=== PATIENT | female | born 1985 | race Caucasian/White ===

== ENCOUNTER 2019-10-02 10:49 | Emergency (ER) | payer MEDICAID, SELFPAY | END 2019-10-02 12:20 | disposition home or self-care (01) | PROVIDERS: Emergency Provider Nurse Practitioner Family; Visit Provider Nurse Practitioner Family | DX: B34.9 Viral infection, unspecified (principal); Z77.22 Contact with and (suspected) exposure to environmental tobacco smoke (acute) (chronic) | CPT/HCPCS: 87804 ×2; 99283 ==

== ENCOUNTER 2019-10-15 03:11 | Emergency (ER) | payer MEDICAID, SELFPAY ==
[2019-10-15 03:14] VITALS: BP 133/81; PULSE 86; RESP 16; TEMP 36.7; O2SAT 99; BMI 38.5
--- NOTE | 2019-10-15 03:32 | ED_ITS ---
Entered by Tameka Oviedo, acting as scribe for Bri Briscoe MD Oct 15, 2019 03:11 HPI - Female Genitourinary General: Chief complaint: Urogenital-Female Stated complaint: POSS YEAST INFECTION Time Seen by Provider: 10/15/19 03:33 Source: patient Mode of arrival: ambulatory Limitations: no limitations History of Present Illness: HPI Narrative: 33 yo f came to the er pov for poss yeast infection. Onset was 3 days ago. Pt states that she has burning, itching and swelling around the vagina. Pt states that she does have a some abd pain. Pt states that she has a lot of pain right now. MD elicited complaint: genital swelling, genital itching and other (burning) Onset (ago): day(s) (3 days ago) Location of symptoms: external genitalia Severity: mild Female Urogenital Radiation: Non-Radiating Quality of pain: burning and other (pain) Consistency: constant Vaginal bleeding: none Exacerbating factors: none Relieving factors: none Associated symptoms: Reports abdominal pain; Deny headache(s) Sexual activity: Yes Patient : No Review of Systems General: Reports: 10 or more systems reviewed and unremarkable except in HPI and below Const: Denies: fever Eyes: Denies: change in vision ENMT: Denies: throat pain Card: Denies: chest pain Resp: Denies: shortness of breath GI: Reports: abdominal pain : Reports: genital itching; Denies: flank pain or painful urination Musc: Denies: neck pain Skin/Breast: Denies: rash Neuro: Denies: headache Psych: Denies: anxiety Endo: Denies: excessive urination Kalyan/Lymph: Denies: easy bruising All/Imm: Denies: hives PFSH ED PFSH: Statuses (acute, chronic, etc) shown below reflect problem list status as previously entered and may not be historically accurate Social History Smoking and tobacco status: former smoker Physical Exam Narrative: EXAM NARRATIVE: General alert and oriented x3 no acute distress alert and appropriate HEENT exam normocephalic atraumatic, OP moist, EOMI Trachea midline Respiratory no distress lungs clear to auscultation bilaterally Cardio exam regular rate and rhythm no murmur GI abdomen soft normal bowel sounds nontender nondistended no rigidity no rebound. 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 Bimanual exam was normal no adnexal tenderness Extremities full range of motion Neuro no deficits GCS 15 Psych within normal limits Course Vital Signs: Vital signs: Vital Signs Temperature 98.1 F 10/15/19 03:14 Pulse Rate 71 10/15/19 03:34 Respiratory Rate 18 10/15/19 03:34 Blood Pressure 122/62 10/15/19 03:34 Pulse Oximetry 98 10/15/19 03:34 MDM - Female MDM Narrative: Medical decision making narrative: 33-year-old female with yeast infection by clinical exam. Went over test results with her today and explained that the gonorrhea and chlamydia will not be back for possibly up to 2 days but we would call her if they are positive so no news is good news. Will treat with Diflucan she is to return to the ER if worse follow-up with her primary care doctor if not improving as expected she is agreeable with the plan. Lab Data: Attestation: I reviewed the patient's lab results. Labs: Lab Results 10/15/19 Range/Units 03:55 Urine Color Yellow (Yellow) Urine Appearance Clear (CLEAR) Urine pH 5 (5-7) Ur Specific Gravit y 1.020 (1.005-1.030) Urine Protein Neg (Negative) Urine Glucose (UA) Norm (Normal) Urine Ketones Negative (Negative) Urine Occult Blood Neg (Negative) Urine Nitrate Negative (Negative) Urine Bilirubin Neg (NEGATIVE) Urine Urobilinogen 1 H (Negative) mg/dL Ur Leukocyte Zeina ase Trace H (Negative) Urine RBC 0-4 H (0-2) /hpf Urine WBC 15-25 H (0-5) /hpf Ur Squamous Epith Cells 25-40 H (0-5) Urine Bacteria 1+ H (NONE) Discharge Plan Discharge Patient Disposition: Home, Self-Care Clinical Impression: Yeast infection Condition: Stable Prescriptions: New Diflucan 150 mg tablet 150 mg PO DAILY 3 Days Qty: 3 RF: 1 Discharge Orders: Discharge Order (Routine); Ordered 10/15/19 Ordered By: Bri Briscoe Referrals: Jerry Gomez MD [Primary Care Provider] - Patient Instructions: Vulvovaginal Candidiasis (ED) Activity Restrictions/Additional Instructions: Return to the ER if worse otherwise call your primary care doctor on Thursday for follow-up appointment. As we discussed if your gonorrhea and/or chlamydia tests are positive the hospital will contact you. Take the Diflucan as directed. Coding Level of Care Code ED Bacon Skin Lifter for Jamel Fwamada The documentation recorded by the Preet cook Stephanie Lyn, accurately refl ects the service I personally performed and the decisions made by me, Bri Briscoe MD Oct 15, 2019 03:11
[2019-10-15 03:34] VITALS: BP 122/62; PULSE 71; RESP 18; O2SAT 98
[2019-10-15 04:56] LABS: Add Urine Microscopic? YES; Bilirubin Urine Neg (NEGATIVE); Blood Urine Neg (Negative); Glucose Urine UA Norm (Normal); Ketones Urine Negative (Negative); Leukocyte Esterase Urine Trace (Negative); Nitrate Urine Negative (Negative); Protein Urine Neg (Negative); Urine Appearance Clear (CLEAR); Urine Color Yellow (Yellow); Urobilinogen Urine 1 mg/dL (Negative); pH Urine 5 (5-7)
[2019-10-15 04:57] LABS: Add Urine Culture? No; Bacteria Urine 1+; RBC Urine 0-4 /hpf (0-2); Squamous Epithelial Cell Urine 25-40 (0-5); WBC Urine 15-25 /hpf (0-5)
[2019-10-15 05:43] VITALS: BP 111/60; PULSE 69; RESP 18; TEMP 36.9; O2SAT 99
== END 2019-10-15 05:45 | disposition home or self-care (01) ==
PROVIDERS: Emergency Provider Emergency Medicine; PCP Family Medicine
DX: B37.9 Candidiasis, unspecified (principal); Z87.891 Personal history of nicotine dependence
CPT/HCPCS: 81003; 87210; 87491; 87591; 87661; 99281; E0352

== ENCOUNTER → 2019-12-05 14:55 | Outpatient (BNVA) | payer MEDICAID, SELFPAY | PROVIDERS: PCP Family Medicine; Visit Provider Nurse Practitioner | DX: R50.9 Fever, unspecified (principal) | CPT/HCPCS: 87804 ==

== ENCOUNTER → 2020-02-02 16:26 | Outpatient (BNVA) | payer MEDICAID, SELFPAY | PROVIDERS: PCP Family Medicine; Visit Provider Nurse Practitioner Family | DX: R05 Cough (principal); J02.9 Acute pharyngitis, unspecified | CPT/HCPCS: 87071; 87400; 87635; 87880 ==

== ENCOUNTER → 2020-02-24 18:48 | Outpatient (BNVA) | payer MEDICAID, SELFPAY | PROVIDERS: PCP Family Medicine; Visit Provider Nurse Practitioner | DX: J01.90 Acute sinusitis, unspecified (principal); J40 Bronchitis, not specified as acute or chronic; R52 Pain, unspecified | CPT/HCPCS: 87400 ==

== ENCOUNTER 2020-03-19 19:00 | Emergency (ER) | payer MEDICAID, SELFPAY ==
[2020-03-19 19:03] VITALS: BP 111/78; PULSE 95; RESP 20; TEMP 36.9; O2SAT 99; BMI 38.0
--- NOTE | 2020-03-19 19:17 | ECG_ITS ---
[facility] ED Test Date: 2020-03-19 Pat Name: Payton Galloway Department: Room: Gender: 1 Ranger Aide: : 1985 Requested By: Anny Horton Order Number: [id number] Caryl MD: Amanda Eid M.D. Measurements Intervals [place] Rate: 83 P: 64 [place]: 185 QRS: 2 QRSD: 97 T: 43 QT: 361 QTc: 424 Interpretive Statements SINUS RHYTHM INCOMPLETE RIGHT BUNDLE BRANCH BLOCK SEPTAL MYOCARDIAL INFARCTION, OF INDETERMINATE AGE Compared to ECG 06/29/2016 00:48:44 Incomplete right bundle-branch block now present Myocardial infarct finding now present Electronically Signed On 03-21-2020 13:51:22 CDT by Amanda Eid M.D. [id number]
--- NOTE | 2020-03-19 19:17 | XR_ITS ---
WS: [id number] XR chest 1V portable [id number] REASON FOR EXAM: CP, SOB FINDINGS: The lung shelley are hypoaerated. Similar findings were noted on 10/04/2019. The heart is not enlarged. The lung shelley show no pneumonia, pleural effusion, pulmonary edema, or mass effect. Hilum and apices are normal. IMPRESSION: Hypoaerated lungs.
[2020-03-19 19:44] LABS: Basophils % 0.3 %; Eosinophils # 0.1 10^3/uL (0.0-0.8); Eosinophils % 1.6 %; Hematocrit 38.7 % (37.0-47.0); Hemoglobin 12.4 g/dL (11.5-15.3); Lymphocytes # 2.4 10^3/uL (0.8-4.8); Lymphocytes % 32.7 %; Mean Corpuscular Hemoglobin 29.2 pg (28.0-34.0); Mean Corpuscular Volume 91.1 fL (81-99); Mean Platelet Volume 11.7 fL (7.4-10.4); Monocytes # 0.4 10^3/uL (0.2-0.9); Monocytes % 4.8 %; Neutrophils # 4.4 10^3/uL (1.8-7.7); Neutrophils % 60.2 %; Nucleated Red Blood Cells % 0 %; Platelet Count 277 10^3/cmm (130-400); Red Blood Count 4.25 10^6/uL (4.1-5.3); Red Cell Distribution Width 14.1 % (12.1-15.1); White Blood Count 7.3 10^3/uL (4.0-10.0)
[2020-03-19 20:01] LABS: Alanine Aminotransferase 20 U/L (0-33); Albumin Level 4.2 g/dL (3.5-5.2); Alkaline Phosphatase 70 IU/L (35-105); Anion Gap 14.6 (5-19); Aspartate Amino Transferase 18 U/L (0-32); Blood Urea Nitrogen 17 mg/dL (6-20); Calcium 9.5 mg/dL (8.5-10.5); Carbon Dioxide 26 mmol/L (22-29); Chloride 101 mmol/L (98-107); Glomerular Filtration Rate 81.2 mL/min (90-130); Glucose 115 mg/dL (65-115); Osmolality Calculated 283 mOsm/kg (285-295); Potassium 3.6 mmol/L (3.5-5.1); Sodium 138 mmol/L (136-145); Total Bilirubin 0.3 mg/dL (0.15-1.2); Total Protein 7.2 g/dL (6.6-8.7)
[2020-03-19 20:03] LABS: Troponin(5th) Baseline 6 ng/L (0-10)
[2020-03-19 20:33] LABS: D Dimer 0.56 ug/mIFEU (0-0.59)
[2020-03-19] MEDS: LORazepam 1 mg Tablet PO (20:42)
[2020-03-19] MEDS: ketorolac 30 mg/mL INJ IM (20:42)
--- NOTE | 2020-03-19 20:46 | ED_ITS ---
HPI - Chest Pain General: Chief Complaint: Chest Pain Stated Complaint: cp, sob Time Seen by Provider: 03/19/20 20:21 Source: patient Mode of arrival: ambulatory Limitations: no limitations History of Present Illness: HPI narrative: 34-year-old female who states she has had left-sided chest pain for the last 9 to 10 months. She states the pain is sharp in nature. She is worse with palpation along with movement of her arm. She denies any injuries. She denies any shortness of breath. She denies any cough. MD complaint: chest pain Associated symptoms: Deny abdominal pain, dyspnea, fever(s), nausea or vomiting Review of Systems Const: Denies: fever(s), chills, body aches or change in appetite Eyes: Denies: blurry vision or eye discomfort ENMT: Denies: throat pain or dental pain Card: Reports: chest pain Resp: Denies: dyspnea GI: Denies: abdominal pain, nausea, vomiting or diarrhea : Denies: dysuria Musc: Denies: neck pain or back pain Skin/Breast: Denies: rash Neuro: Denies: headache(s) Psych: Denies: depression Kalyan/Lymph: Denies: easy bruising All/Imm: Denies: urticaria PFSH ED PFSH: Medical History Anxiety Depression History of seizure Surgical History History of cholecystectomy History of total hysterectomy partial Social History Smoking and tobacco status: former smoker Alcohol intake: current Alcohol intake frequency: holidays/special occasions only Female Reproductive History: Date of last menstrual period: 09/16/19 Physical Exam Const: COMMON NORMALS: no acute distress, patient oriented x3 and healthy appearing HENMT: COMMON NORMALS: normocephalic and atraumatic HEAD & SCALP: normocephalic and atraumatic Eye: COMMON NORMALS: Equal, round and reactive pupils present and EOMs intact bilaterally PUPIL: Yes Equal, round and reactive pupils present Neck/C-Spine: COMMON NORMALS: full ROM and supple Chest: COMMONS NORMALS: normal inspection of the chest OTHER: Point tender to left chest Resp: COMMON NORMALS: normal respiratory effort, No retractions, No use of accessory muscles and clear to auscultation bilaterally AUSCULTATION: clear to auscultation bilaterally Cardio: COMMON NORMALS: regular rate, regular rhythm and No murmurs present (Cardio) RATE: regular rate RHYTHM: regular rhythm GI: COMMON NORMALS: Normal to inspection, nondistended, normoactive bowel sounds present, Soft to palpation, non-tender and no masses PALPATION: Yes Soft to palpation Extremity: COMMON NORMALS: normal to inspection and full ROM Neuro: COMMON NORMALS: patient oriented x3, moves all extremities and no focal motor deficits Psych: COMMON NORMALS: mental status grossly normal, Normal thought process present and cooperative THOUGHT PROCESS: Normal thought process present Skin: COMMON NORMALS: no rashes or lesions noted and no wounds GENERAL SKIN EXAM: no rashes or lesions noted Course Vital Signs: Vital signs: Vital Signs Temperature 98.4 F 03/19/20 19:03 Pulse Rate 95 03/19/20 19:03 Respiratory Rate 20 H 03/19/20 19:03 Blood Pressure 111/78 03/19/20 19:03 Pulse Oximetry 99 03/19/20 19:03 MDM - Chest Pain MDM Narrative: Medical decision making narrative: States he presents with chest pain that is atypical in nature. Patient is point tender on exam and EKG troponin and d-dimer all negative. Patient is stable for discharge and is to follow up with primary care doctor and return if worsening. She has no signs of pulmonary embolism or cardiac cause. Lab Data: Labs: Lab Results 03/19/20 03/19/20 03/19/20 Range/Units 19:37 19:37 19:37 WBC 7.3 (4.0-10.0) 10^3/ uL RBC 4.25 (4.1-5.3) 10^6/u L Hgb 12.4 (11.5-15.3) g/dL Hct 38.7 (37.0-47.0) % MCV 91.1 (81-99) fL MCH 29.2 (28.0-34.0) pg MCHC 32.0 (30.0-36.0) g/dL RDW 14.1 (12.1-15.1) % Plt Count 277 (130-400) 10^3/c mm MPV 11.7 H (7.4-10.4) fL Neut % (Auto) 60.2 % Lymph % (Auto) 32.7 % [place] % (Auto) 4.8 % Eos % (Auto) 1.6 % Baso % (Auto) 0.3 % Neut # (Auto) 4.4 (1.8-7.7) 10^3/u L Lymph # (Auto) 2.4 (0.8-4.8) 10^3/u L [place] # (Auto) 0.4 (0.2-0.9) 10^3/u L Eos # (Auto) 0.1 (0.0-0.8) 10^3/u L Baso # (Auto) 0.0 (0.0-0.1) 10^3/u L Nucleated RBC % (a uto) 0 % Nucleated RBCs # 0.0 /100WBC D-Dimer 0.56 (0-0.59) ug/mIFE U Sodium 138 (136-145) mmol/L Potassium 3.6 (3.5-5.1) mmol/L Chloride 101 (98-107) mmol/L Carbon Dioxide 26 (22-29) mmol/L Anion Gap 14.6 (5-19) BUN 17 (6-20) mg/dL Creatinine 0.8 (0.5-0.9) mg/dL GFR Calculation 81.2 L (90-130) mL/min Glucose 115 (65-115) mg/dL Calculated Osmolal ity 283 L (285-295) mOsm/k g Calcium 9.5 (8.5-10.5) mg/dL Total Bilirubin 0.3 (0.15-1.2) mg/dL AST 18 (0-32) U/L ALT 20 (0-33) U/L Alkaline Phosphata se 70 (35-105) IU/L Troponin T Baselin e (0-10) ng/L Total Protein 7.2 (6.6-8.7) g/dL Albumin 4.2 (3.5-5.2) g/dL Globulin 3.0 (1.3-4.6) g/dL 03/19/20 Range/Units 19:37 WBC (4.0-10.0) 10^3/ uL RBC (4.1-5.3) 10^6/u L Hgb (11.5-15.3) g/dL Hct (37.0-47.0) % MCV (81-99) fL MCH (28.0-34.0) pg MCHC (30.0-36.0) g/dL RDW (12.1-15.1) % Plt Count (130-400) 10^3/c mm MPV (7.4-10.4) fL Neut % (Auto) % Lymph % (Auto) % [place] % (Auto) % Eos % (Auto) % Baso % (Auto) % Neut # (Auto) (1.8-7.7) 10^3/u L Lymph # (Auto) (0.8-4.8) 10^3/u L [place] # (Auto) (0.2-0.9) 10^3/u L Eos # (Auto) (0.0-0.8) 10^3/u L Baso # (Auto) (0.0-0.1) 10^3/u L Nucleated RBC % (a uto) % Nucleated RBCs # /100WBC D-Dimer (0-0.59) ug/mIFE U Sodium (136-145) mmol/L Potassium (3.5-5.1) mmol/L Chloride (98-107) mmol/L Carbon Dioxide (22-29) mmol/L Anion Gap (5-19) BUN (6-20) mg/dL Creatinine (0.5-0.9) mg/dL GFR Calculation (90-130) mL/min Glucose (65-115) mg/dL Calculated Osmolal ity (285-295) mOsm/k g Calcium (8.5-10.5) mg/dL Total Bilirubin (0.15-1.2) mg/dL AST (0-32) U/L ALT (0-33) U/L Alkaline Phosphata se (35-105) IU/L Troponin T Baselin e 6 (0-10) ng/L Total Protein (6.6-8.7) g/dL Albumin (3.5-5.2) g/dL Globulin (1.3-4.6) g/dL Imaging Data^: CXR: Attestation: I personally reviewed and interpreted this imaging study as follows: My impression: no acute abnormality EKG Data^: EKG 1: Attestation: I personally reviewed and interpreted this EKG as follows: EKG interpretation date: 03/19/20 EKG interpretation time: 19:05 Interpretation: nsr hr [address] or t wave abnormalities qrs 75 qtc 373 Discharge Plan Discharge Patient Disposition: Home, Self-Care Clinical Impression: Chest pain Qualifiers: Chest pain type: unspecified Qualified Code(s): R07.9 - Chest pain, unspecified Condition: Stable Prescriptions: New Naprosyn 500 mg tablet 500 mg PO BID PRN (Reason: pain) Qty: 20 RF: 0 No Action albuterol sulfate [ProAir HFA] 90 mcg/actuation HFA aerosol inhaler 2 puff INHALATION QID PRN (Reason: shortness of breath or wheezing) Qty: 6.7 RF: 0 amoxicillin 500 mg tablet 500 mg PO Q8H RF: 0 Vitamin C 250 mg Tablet,Chewable 250 mg PO DAILY RF: 0 ibuprofen 200 mg Tablet 200 mg PO Q6H PRN (Reason: Pain) RF: 0 Discharge Orders: Discharge Order (Routine); Ordered 03/19/20 Ordered By: Kemi Garcia Referrals: Jerry Gomez MD [Primary Care Provider] - Discharge Diet: Advance as tolerated Discharge Activity: Resume usual activity Patient Instructions: Chest Pain (ED) Discharge Date/Time: 03/19/20 21:01 Coding Level of Care Code ED Bioinformatics Technician for Chg Fwd Exam Comprehensive
[2020-03-19 20:51] VITALS: BP 119/81; PULSE 85; RESP 20; TEMP 36.8; O2SAT 100
[2020-03-19 21:00] VITALS: BP 119/81; PULSE 74; RESP 16; O2SAT 98
== END 2020-03-19 21:01 | disposition home or self-care (01) ==
PROVIDERS: Emergency Medicine; Emergency Provider Emergency Medicine; PCP Family Medicine
DX: R07.9 Chest pain, unspecified (principal); Z87.891 Personal history of nicotine dependence
CPT/HCPCS: 12345; 36415; 71045; 80053; 84484; 85025; 85378; 93005; 96372; 99281; 99284; J1885

== ENCOUNTER 2020-04-04 09:00 | Emergency (ER) | payer MEDICAID, SELFPAY ==
[2020-04-04 09:01] VITALS: BP 142/85; PULSE 86; RESP 17; TEMP 36.5; O2SAT 97; BMI 37.5
--- NOTE | 2020-04-04 09:05 | W.ED.GENADLT ---
HPI - General Adult General: Chief complaint: General Medical Stated complaint: SWEATING, DIZZY Time Seen by Provider: 04/04/20 09:02 Source: patient Mode of arrival: ambulatory Limitations: no limitations History of Present Illness: HPI narrative: Patient is a 34-year-old female who presents to ED today with multiple complaints. Patient tells me last she began a new job at [employer] and often works long hours and very hot temperatures. She states since starting that job she is intermittently had nausea, felt clammy, feels drained. She reports feeling like she might be dehydrated. In addition patient complains of some right upper tooth aches. She states she has had sinus drainage. She is reporting intermittent diffuse stomach aches. She has not had any vomiting or diarrhea. No fevers. No chance of as patient has had a hysterectomy. She has not had any sick contacts. Onset (ago): day(s) Associated symptoms: Reports malaise and nausea; Deny chest pain, dyspnea, headache(s), rash, palpitations, syncope or vomiting Review of Systems Const: Reports: fatigue and malaise; Denies: fever(s), chills, body aches, change in appetite or change in weight Eyes: Denies: change in vision, blurry vision, photophobia, floaters or seeing flashes ENMT: Reports: dental pain, nasal discharge, nasal congestion and sinus pain; Denies: throat pain, uvular edema, enlarged tonsils, odynophagia, swelling of lips/tongue, oral sores, bleeding gums, ear or mastoid pain, ear discharge, change in hearing, tinnitus or epistaxis Card: Denies: chest pain, palpitations, irregular heart rhythm, edema, swelling of feet/ankles, lightheadedness, syncope, pre-syncope, dyspnea on exertion, orthopnea or leg pain with exertion Resp: Denies: dyspnea, productive cough, non-productive cough, pain on inspiration, hemoptysis or chest congestion GI: Reports: abdominal pain and nausea; Denies: vomiting, hematemesis, heartburn, diarrhea, change in bowel habits, change in stool character, hematochezia or white/light colored stool : Denies: flank pain, difficulty voiding, dysuria, urinary frequency, urinary urgency, urinary hesitancy, hematuria, genital lesions, genital pruritis, vaginal bleeding or vaginal discharge Musc: Denies: neck pain or back pain Skin/Breast: Denies: rash Neuro: Denies: headache(s), numbness in extremities, weakness in extremities or sensory changes PFSH ED PFSH: Medical History (Updated 04/04/20 @ 10:26 by AMADO Ornelas) Anxiety Depression History of seizure Surgical History History of cholecystectomy History of total hysterectomy partial Social History Smoking and tobacco status: former smoker Alcohol intake: current Alcohol intake frequency: holidays/special occasions only Current gender identity: Female Female Reproductive History: Date of last menstrual period: 09/16/19 Physical Exam Const: COMMON NORMALS: no acute distress, patient oriented x3, no limitations and alert NUTRITIONAL APPEARANCE: obese ORIENTATION/CONSCIOUSNESS: Yes oriented to person, Yes oriented to place and Yes oriented to time HENMT: COMMON NORMALS: normocephalic, atraumatic, hearing grossly normal bilaterally, external ears normal, EAC's normal, TM's normal bilaterally, Normal external nose present, Normal nasal mucous membranes and turbinates present, moist oral mucous membranes, oropharynx normal and gingiva normal HEAD & SCALP: normal to inspection, normocephalic and atraumatic FACE & SINUS: sinus tenderness maxillary (mild) NOSE: Normal external nose present and Normal nasal mucous membranes and turbinates present EXTERNAL EAR: Yes external ears normal EXTERNAL AUDITORY CANAL: EAC's normal TYMPANIC MEMBRANE: TM's normal bilaterally MOUTH: Normal oral and palatal mucosa present, lip normal and tongue normal TEETH & GINGIVA: Yes other (fillings to R upper molars; no active infection/abscess ) THROAT: posterior oropharynx normal, tonsils normal and uvula midline; no uvular edema Eye: COMMON NORMALS: Equal, round and reactive pupils present, EOMs intact bilaterally, conjunctivae normal and no scleral icterus CONJUNCTIVA: Yes conjunctivae normal PUPIL: Yes Equal, round and reactive pupils present Neck/C-Spine: COMMON NORMALS: full ROM, no lymphadenopathy and no meningeal signs Resp: COMMON NORMALS: normal respiratory effort and clear to auscultation bilaterally AUSCULTATION: clear to auscultation bilaterally Cardio: COMMON NORMALS: regular rate and regular rhythm RATE: regular rate RHYTHM: regular rhythm GI: COMMON NORMALS: Normal to inspection, nondistended, normoactive bowel sounds present, Soft to palpation, No hepatosplenomegaly present and no masses PALPATION: Yes Soft to palpation, Yes Tenderness to palpation present (GI) (mild diffusely-non surgical abdomen ) and Yes No hepatosplenomegaly present : COMMON NORMALS: Yes no CVA tenderness BLADDER/KIDNEY EXAM: Yes no CVA tenderness Back/Pelvis: COMMON NORMALS: no CVA tenderness Extremity: COMMON NORMALS: normal to inspection and full ROM GENERAL: Yes normal exam except as noted Neuro: LE COMA SCALE: document GCS findings Le coma scale eye opening: Spontaneous [place] coma scale verbal response: Orientated Le coma scale motor response: Obey commands Alb[place] coma scale total score: 15 COMMON NORMALS: patient oriented x3, moves all extremities, no focal motor deficits, no sensory deficits noted and gait normal SENSORIUM/ORIENTATION: Yes alert, Yes oriented to person, Yes oriented to place and Yes oriented to time MENINGEAL SIGNS: Yes no meningeal signs Skin: COMMON NORMALS: no rashes or lesions noted GENERAL SKIN EXAM: no rashes or lesions noted Course Vital Signs: Vital signs: Vital Signs Temperature 97.7 F 04/04/20 09:01 Pulse Rate 66 04/04/20 10:09 Respiratory Rate 16 04/04/20 10:09 Blood Pressure 118/73 04/04/20 10:09 Pulse Oximetry 100 04/04/20 10:09 MDM - General Adult MDM Narrative: Medical decision making narrative: Patient with mild hypokalemia. This was replaced with oral potassium here. She will be discharged with 3 days of potassium at home. Magnesium is normal. UA suspicious for UTI. She will be placed on Macrobid for a week. Remainder of work-up is non-concerning at this time. She was given a liter of fluids here. Recommend she follow-up with PCP if symptoms persist. Return to ED precautions given. Lab Data: Labs: Lab Results 04/04/20 04/04/20 04/04/20 Range/Units 09:23 09:23 09:23 WBC 6.1 (4.0-10.0) 10^3/ uL RBC 4.47 (4.1-5.3) 10^6/u L Hgb 13.4 (11.5-15.3) g/dL Hct 39.7 (37.0-47.0) % MCV 88.8 (81-99) fL MCH 30.0 (28.0-34.0) pg MCHC 33.8 (30.0-36.0) g/dL RDW 13.6 (12.1-15.1) % Plt Count 296 (130-400) 10^3/c mm MPV 11.6 H (7.4-10.4) fL Neut % (Auto) 62.9 % Lymph % (Auto) 29.8 % [place] % (Auto) 4.9 % Eos % (Auto) 1.6 % Baso % (Auto) 0.5 % Neut # (Auto) 3.9 (1.8-7.7) 10^3/u L Lymph # (Auto) 1.8 (0.8-4.8) 10^3/u L [place] # (Auto) 0.3 (0.2-0.9) 10^3/u L Eos # (Auto) 0.1 (0.0-0.8) 10^3/u L Baso # (Auto) 0.0 (0.0-0.1) 10^3/u L Nucleated RBC % (a uto) 0 % Nucleated RBCs # 0.0 /100WBC Sodium 138 (136-145) mmol/L Potassium 3.1 L (3.5-5.1) mmol/L Chloride 99 (98-107) mmol/L Carbon Dioxide 27 (22-29) mmol/L Anion Gap 15.1 (5-19) BUN 10 (6-20) mg/dL Creatinine 0.9 (0.5-0.9) mg/dL GFR Calculation 70.8 L (90-130) mL/min Glucose 117 H (65-115) mg/dL Calculated Osmolal ity 283 L (285-295) mOsm/k g Calcium 9.4 (8.5-10.5) mg/dL Magnesium 2.1 (1.7-2.3) mg/dL Total Bilirubin 0.5 (0.15-1.2) mg/dL AST 25 (0-32) U/L ALT 20 (0-33) U/L Alkaline Phosphata se 87 (35-105) IU/L Total Protein 8.2 (6.6-8.7) g/dL Albumin 4.5 (3.5-5.2) g/dL Globulin 3.7 (1.3-4.6) g/dL Lipase 38 (13-60) U/L Urine Color (Yellow) Urine Appearance (CLEAR) Urine pH (5-7) Ur Specific Gravit y (1.005-1.030) Urine Protein (Negative) Urine Glucose (UA) (Normal) Urine Ketones (Negative) Urine Blood (Negative) Urine Nitrate (Negative) Urine Bilirubin (NEGATIVE) Urine Urobilinogen (Negative) mg/dL Ur Leukocyte Zeina ase (Negative) Urine RBC (0-2) /hpf Urine WBC (0-5) /hpf Ur Squamous Epith Cells (0-5) Amorphous Sediment Urine Bacteria (NONE) 04/04/20 Range/Units 09:30 WBC (4.0-10.0) 10^3/ uL RBC (4.1-5.3) 10^6/u L Hgb (11.5-15.3) g/dL Hct (37.0-47.0) % MCV (81-99) fL MCH (28.0-34.0) pg MCHC (30.0-36.0) g/dL RDW (12.1-15.1) % Plt Count (130-400) 10^3/c mm MPV (7.4-10.4) fL Neut % (Auto) % Lymph % (Auto) % [place] % (Auto) % Eos % (Auto) % Baso % (Auto) % Neut # (Auto) (1.8-7.7) 10^3/u L Lymph # (Auto) (0.8-4.8) 10^3/u L [place] # (Auto) (0.2-0.9) 10^3/u L Eos # (Auto) (0.0-0.8) 10^3/u L Baso # (Auto) (0.0-0.1) 10^3/u L Nucleated RBC % (a uto) % Nucleated RBCs # /100WBC Sodium (136-145) mmol/L Potassium (3.5-5.1) mmol/L Chloride (98-107) mmol/L Carbon Dioxide (22-29) mmol/L Anion Gap (5-19) BUN (6-20) mg/dL Creatinine (0.5-0.9) mg/dL GFR Calculation (90-130) mL/min Glucose (65-115) mg/dL Calculated Osmolal ity (285-295) mOsm/k g Calcium (8.5-10.5) mg/dL Magnesium (1.7-2.3) mg/dL Total Bilirubin (0.15-1.2) mg/dL AST (0-32) U/L ALT (0-33) U/L Alkaline Phosphata se (35-105) IU/L Total Protein (6.6-8.7) g/dL Albumin (3.5-5.2) g/dL Globulin (1.3-4.6) g/dL Lipase (13-60) U/L Urine Color Yellow (Yellow) Urine Appearance Clear (CLEAR) Urine pH 5 (5-7) Ur Specific Gravit y 1.025 (1.005-1.030) Urine Protein Neg (Negative) Urine Glucose (UA) Norm (Normal) Urine Ketones Negative (Negative) Urine Blood 2+ H (Negative) Urine Nitrate Negative (Negative) Urine Bilirubin 1+ H (NEGATIVE) Urine Urobilinogen Norm (Negative) mg/dL Ur Leukocyte Zeina ase Trace H (Negative) Urine RBC 5-10 H (0-2) /hpf Urine WBC 5-10 H (0-5) /hpf Ur Squamous Epith Cells 15-25 H (0-5) Amorphous Sediment Not Reportable Urine Bacteria 2+ H (NONE) Discharge Plan Discharge Patient Disposition: Home, Self-Care Clinical Impression: Hypokalemia, Acute cystitis with hematuria Condition: Stable Prescriptions: New Klor-Con 20 mEq packet 40 meq PO DAILY 3 Days Qty: 6 RF: 0 Macrobid 100 mg capsule 100 mg PO BID 7 Days Qty: 14 RF: 0 No Action albuterol sulfate [ProAir HFA] 90 mcg/actuation HFA aerosol inhaler 2 puff INHALATION QID PRN (Reason: shortness of breath or wheezing) Qty: 6.7 RF: 0 amoxicillin 500 mg tablet 500 mg PO Q8H RF: 0 Vitamin C 250 mg Tablet,Chewable 250 mg PO DAILY RF: 0 ibuprofen 200 mg Tablet 200 mg PO Q6H PRN (Reason: Pain) RF: 0 Naprosyn 500 mg tablet 500 mg PO BID PRN (Reason: pain) Qty: 20 RF: 0 Discharge Orders: Discharge Order (Routine); Ordered 04/04/20 Ordered By: ePace Otero Referrals: Jerry Gomez MD [Primary Care Provider] - Patient Instructions: Urinary Tract Infection in Women (ED), Hypokalemia (ED) Activity Restrictions/Additional Instructions: Please followup with primary care in 3-5 days if symptoms persist. You may return to the ED for any worsening symptoms. Stand Alone Forms: Work/School Release Coding Level of Care Code ED Distribution Center Associate for Jamel [place]
[2020-04-04] MEDS: sodium chloride 0.9% 1,000 ML 999 ML IV (09:39)
[2020-04-04 09:40] VITALS: PULSE 75; RESP 17; O2SAT 98
[2020-04-04 09:43] LABS: Basophils % 0.5 %; Eosinophils # 0.1 10^3/uL (0.0-0.8); Eosinophils % 1.6 %; Hematocrit 39.7 % (37.0-47.0); Hemoglobin 13.4 g/dL (11.5-15.3); Lymphocytes # 1.8 10^3/uL (0.8-4.8); Lymphocytes % 29.8 %; Mean Corpuscular HGB Conc 33.8 g/dL (30.0-36.0); Mean Corpuscular Volume 88.8 fL (81-99); Mean Platelet Volume 11.6 fL (7.4-10.4); Monocytes # 0.3 10^3/uL (0.2-0.9); Monocytes % 4.9 %; Neutrophils # 3.9 10^3/uL (1.8-7.7); Neutrophils % 62.9 %; Nucleated Red Blood Cells % 0 %; Platelet Count 296 10^3/cmm (130-400); Red Blood Count 4.47 10^6/uL (4.1-5.3); Red Cell Distribution Width 13.6 % (12.1-15.1); White Blood Count 6.1 10^3/uL (4.0-10.0)
[2020-04-04 10:01] LABS: Alanine Aminotransferase 20 U/L (0-33); Albumin Level 4.5 g/dL (3.5-5.2); Alkaline Phosphatase 87 IU/L (35-105); Anion Gap 15.1 (5-19); Aspartate Amino Transferase 25 U/L (0-32); Blood Urea Nitrogen 10 mg/dL (6-20); Calcium 9.4 mg/dL (8.5-10.5); Carbon Dioxide 27 mmol/L (22-29); Chloride 99 mmol/L (98-107); Globulin 3.7 g/dL (1.3-4.6); Glomerular Filtration Rate 70.8 mL/min (90-130); Glucose 117 mg/dL (65-115); Lipase 38 U/L (13-60); Osmolality Calculated 283 mOsm/kg (285-295); Potassium 3.1 mmol/L (3.5-5.1); Sodium 138 mmol/L (136-145); Total Bilirubin 0.5 mg/dL (0.15-1.2); Total Protein 8.2 g/dL (6.6-8.7)
[2020-04-04 10:02] LABS: Urine Color Yellow (Yellow)
[2020-04-04 10:04] LABS: Bilirubin Urine 1+ (NEGATIVE); Blood Urine 2+ (Negative); Glucose Urine UA Norm (Normal); Ketones Urine Negative (Negative); Nitrate Urine Negative (Negative); Protein Urine Neg (Negative); Specific Gravity, Urine 1.025 (1.005-1.030); Urine Appearance Clear (CLEAR); Urobilinogen Urine Norm (Negative); pH Urine 5 (5-7)
[2020-04-04 10:05] LABS: Add Urine Culture? No; Add Urine Microscopic? YES; Bacteria Urine 2+; Leukocyte Esterase Urine Trace (Negative); Squamous Epithelial Cell Urine 15-25 (0-5)
[2020-04-04 10:09] VITALS: BP 118/73; PULSE 66; RESP 16; O2SAT 100
[2020-04-04 10:20] LABS: Magnesium 2.1 mg/dL (1.7-2.3)
[2020-04-04] MEDS: potassium chloride ER 10 mEq Tablet 40 MEQ PO (10:21)
[2020-04-04 11:15] VITALS: BP 128/82; PULSE 67; RESP 16; O2SAT 100
== END 2020-04-04 11:17 | disposition home or self-care (01) ==
PROVIDERS: Emergency Provider Physician Assistant; PCP Family Medicine
DX: N30.01 Acute cystitis with hematuria (principal); E87.6 Hypokalemia; Z87.891 Personal history of nicotine dependence
CPT/HCPCS: 12345; 80053; 81001; 83690; 83735; 85025; 87086; 96360; 99283; J7030

== ENCOUNTER → 2020-04-10 08:35 | Outpatient (BNVA) | payer MEDICAID, SELFPAY | PROVIDERS: PCP Family Medicine; Visit Provider Psychiatry & Neurology Psychiatry | DX: F43.12 Post-traumatic stress disorder, chronic (principal); F41.1 Generalized anxiety disorder; F41.0 Panic disorder [episodic paroxysmal anxiety] | CPT/HCPCS: 99204 ==

== ENCOUNTER → 2020-04-11 11:20 | Outpatient (BNVA) | payer MEDICAID, SELFPAY | PROVIDERS: PCP Family Medicine; Visit Provider Family Medicine | DX: E87.6 Hypokalemia (principal); F19.21 Other psychoactive substance dependence, in remission; Z13.6 Encounter for screening for cardiovascular disorders | CPT/HCPCS: 80048; 80061; 80074; 87806 ==

== ENCOUNTER 2020-04-23 02:56 | Emergency (ER) | payer MEDICAID, SELFPAY ==
--- NOTE | 2020-04-23 02:59 | XR_ITS ---
WS: [id number] PORTABLE CHEST HISTORY: sob COMPARISON: 03/19/2020 Lungs are clear and well expanded. No pleural effusion or pneumothorax. Cardiac size: Normal. Mediastinum/Aorta: Normal mediastinum. No osseous abnormality seen. XR/XR chest 1V portable [id number] IMPRESSION: Unremarkable portable chest.
[2020-04-23 03:02] VITALS: BP 123/76; PULSE 90; RESP 17; TEMP 36.4; O2SAT 98; BMI 40.4
--- NOTE | 2020-04-23 03:09 | ED_ITS ---
HPI - SOB/Dyspnea General: Chief Complaint: Shortness of Breath/Dyspnea Stated Complaint: sob; chest tightness; anxiety Time Seen by Provider: 04/23/20 03:00 Source: patient Mode of arrival: ambulatory Limitations: no limitations History of Present Illness: HPI Narrative: 34-year-old female who states she has a history of anxiety attacks and used to be on alprazolam. She states that she recently from her Thursday and is been having increased anxiety attack since then. States that she is unable to sleep is having shortness of breath while chest pains. Denies any worsening or improving factors. Associated symptoms: Deny abdominal pain, chest pain, fever(s), nausea or vomiting Review of Systems Const: Denies: fever(s), chills, body aches or change in appetite Eyes: Denies: blurry vision or eye discomfort ENMT: Denies: throat pain or dental pain Card: Denies: chest pain Resp: Denies: dyspnea GI: Denies: abdominal pain, nausea, vomiting or diarrhea : Denies: dysuria Musc: Denies: neck pain or back pain Skin/Breast: Denies: rash Neuro: Denies: headache(s) Psych: Reports: anxiety Kalyan/Lymph: Denies: easy bruising All/Imm: Denies: urticaria PFSH ED PFSH: Medical History (Updated 04/23/20 @ 03:44 by Kemi Garcia MD) Anxiety Depression History of seizure Surgical History History of cholecystectomy History of total hysterectomy partial Family History Other Cancer Diabetes Hypertension Social History Smoking and tobacco status: former smoker Quit status (tobacco): has quit using tobacco Year quit tobacco: 2004 Second hand smoke exposure: Yes Smoking risk assessment/counseling performed?: No Alcohol intake: current Alcohol intake frequency: holidays/special occasions only Current gender identity: Female Female Reproductive History: Date of last menstrual period: 03/26/20 Physical Exam Const: COMMON NORMALS: no acute distress, patient oriented x3 and healthy appearing HENMT: COMMON NORMALS: normocephalic and atraumatic HEAD & SCALP: normocephalic and atraumatic Eye: COMMON NORMALS: Equal, round and reactive pupils present and EOMs intact bilaterally PUPIL: Yes Equal, round and reactive pupils present Neck/C-Spine: COMMON NORMALS: full ROM and supple Chest: COMMONS NORMALS: normal inspection of the chest and normal palpation of entire chest wall Resp: COMMON NORMALS: normal respiratory effort, No retractions, No use of accessory muscles and clear to auscultation bilaterally AUSCULTATION: clear to auscultation bilaterally Cardio: COMMON NORMALS: regular rate, regular rhythm and No murmurs present (Cardio) RATE: regular rate RHYTHM: regular rhythm GI: COMMON NORMALS: Normal to inspection, nondistended, normoactive bowel sounds present, Soft to palpation, non-tender and no masses PALPATION: Yes Soft to palpation Extremity: COMMON NORMALS: normal to inspection and full ROM Neuro: COMMON NORMALS: patient oriented x3, moves all extremities and no focal motor deficits Psych: COMMON NORMALS: mental status grossly normal, Normal thought process present and cooperative MOOD & AFFECT: Yes anxious THOUGHT PROCESS: Normal thought process present Skin: COMMON NORMALS: no rashes or lesions noted and no wounds GENERAL SKIN EXAM: no rashes or lesions noted Course Vital Signs: Vital signs: Vital Signs Temperature 98.1 F 04/23/20 04:44 Pulse Rate 88 04/23/20 04:44 Respiratory Rate 18 04/23/20 04:44 Blood Pressure 134/78 04/23/20 04:44 Pulse Oximetry 99 04/23/20 04:44 MDM - SOB/Dyspnea MDM Narrative: Medical decision making narrative: States he presents here with chest pain that is atypical in nature. Is likely anxiety induced and she does feel improved after Ativan. Patient has no signs of pulmonary embolism. Patient's troponin here is negative. She is stable for discharge and is to follow-up with her primary care doctor in 2 to 4 days return if worsening. Lab Data: Labs: Lab Results 04/23/20 Range/Units 04:02 Troponin T Baselin e 6 (0-10) ng/L Imaging Data^: CXR: Attestation: I personally reviewed and interpreted this imaging study as follows: My impression: no acute abnormality EKG Data^: EKG 1: Attestation: I personally reviewed and interpreted this EKG as follows: EKG Interpretation Date: 04/23/20 EKG interpretation time: 03:25 Interpretation: Normal sinus rhythm heart rate [address] or T wave abnormalities QRS 79 QTc 396 Discharge Plan Discharge Patient Disposition: Home, Self-Care Clinical Impression: Anxiety Chest pain Qualifiers: Chest pain type: unspecified Qualified Code(s): R07.9 - Chest pain, unspecified Condition: Stable Prescriptions: No Action fluoxetine 20 mg capsule 20 mg PO DAILY Qty: 30 RF: 1 trazodone 50 mg tablet 100 mg PO .HS Qty: 60 RF: 1 Vitamin C 250 mg Tablet,Chewable 250 mg PO DAILY RF: 0 ibuprofen 200 mg Tablet 200 mg PO Q6H PRN (Reason: Pain) RF: 0 Naprosyn 500 mg tablet 500 mg PO BID PRN (Reason: pain) Qty: 20 RF: 0 Discharge Orders: Discharge Order (Routine); Ordered 04/23/20 Ordered By: Kemi Garcia Referrals: Jonna Brenner DO [Primary Care Provider] - 1-3 days Discharge Diet: Advance as tolerated Discharge Activity: Resume usual activity Patient Instructions: Anxiety (ED) Discharge Date/Time: 04/23/20 04:49 Coding Level of Care Code ED Loan Counselor for Chg Fwd Exam Comprehensive
[2020-04-23] MEDS: LORazepam 2 mg Tablet PO (03:22)
--- NOTE | 2020-04-23 03:53 | ECG_ITS ---
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 Measurements Intervals [place] Rate: 66 P: 24 CO: 158 QRS: 35 QRSD: 79 T: 23 QT: 382 QTc: 402 Interpretive Statements SINUS RHYTHM WITH SINUS ARRHYTHMIA Compared to ECG 03/19/2020 21:07:48 Incomplete right bundle-branch block no longer present Myocardial infarct finding no longer present Electronically Signed On 04-24-2020 16:23:39 CDT by Polo Stanley M.D. [id number]
[2020-04-23 04:26] LABS: Troponin(5th) Baseline 6 ng/L (0-10)
[2020-04-23 04:44] VITALS: BP 134/78; PULSE 88; RESP 18; TEMP 36.7; O2SAT 99
[2020-04-23] MEDS: LORazepam 1 mg Tablet PO (04:46)
== END 2020-04-23 04:49 | disposition home or self-care (01) ==
PROVIDERS: Emergency Provider Emergency Medicine; PCP Family Medicine
DX: R07.9 Chest pain, unspecified (principal); F41.9 Anxiety disorder, unspecified; Z87.891 Personal history of nicotine dependence
CPT/HCPCS: 12345; 71045; 84484; 93005; 99282; 99284

== ENCOUNTER → 2020-05-10 10:20 | Outpatient (BNVA) | payer MEDICAID, SELFPAY | PROVIDERS: PCP Family Medicine; Visit Provider Obstetrics & Gynecology | DX: Z12.4 Encounter for screening for malignant neoplasm of cervix (principal); N64.4 Mastodynia; Z80.3 Family history of malignant neoplasm of breast; F32.9 Major depressive disorder, single episode, unspecified | CPT/HCPCS: 88175 ==

== ENCOUNTER 2020-05-11 20:18 | Emergency (ER) | payer MEDICAID, SELFPAY ==
--- NOTE | 2020-05-11 20:19 | XRR_ITS ---
PROCEDURE INFORMATION: Exam: XR Chest, 1 View Exam date and time: 05/11/2020 8:38 PM Age: 34 years old Clinical indication: Left-sided chest pain; Additional info: Cp TECHNIQUE: Imaging protocol: XR of the chest Views: 1 view. COMPARISON: CR XR chest 1V portable [id number] 04/23/2020 3:27 AM FINDINGS: Lungs: Unremarkable. No consolidation. Pleural space: Unremarkable. No pleural effusion. No pneumothorax. Heart/Mediastinum: Unremarkable. No cardiomegaly. Bones/joints: Unremarkable. XR/XR chest 1V portable [id number] IMPRESSION: No acute findings.
--- NOTE | 2020-05-11 20:20 | ECG_ITS ---
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 Measurements Intervals [place] Rate: 74 P: 31 ND: 151 QRS: 25 QRSD: 70 T: 16 QT: 347 QTc: 385 Interpretive Statements SINUS RHYTHM Compared to ECG 04/23/2020 03:25:50 Sinus arrhythmia no longer present Electronically Signed On 05-12-2020 12:43:08 CDT by Amanda Eid M.D. [id number]
[2020-05-11 20:47] VITALS: BP 128/81; PULSE 90; RESP 18; TEMP 36.5; O2SAT 98; BMI 38.7
[2020-05-11 20:58] LABS: Basophils % 0.4 %; Eosinophils # 0.1 10^3/uL (0.0-0.8); Eosinophils % 1.2 %; Hematocrit 39.7 % (37.0-47.0); Hemoglobin 12.9 g/dL (11.5-15.3); Lymphocytes # 2.6 10^3/uL (0.8-4.8); Lymphocytes % 33.7 %; Mean Corpuscular HGB Conc 32.5 g/dL (30.0-36.0); Mean Corpuscular Hemoglobin 28.9 pg (28.0-34.0); Mean Platelet Volume 12.1 fL (7.4-10.4); Monocytes # 0.5 10^3/uL (0.2-0.9); Monocytes % 5.9 %; Neutrophils # 4.44 10^3/uL (1.8-7.7); Neutrophils % 58.5 %; Nucleated Red Blood Cells % 0 %; Platelet Count 272 10^3/cmm (130-400); Red Blood Count 4.46 10^6/uL (4.1-5.3); Red Cell Distribution Width 13.1 % (12.1-15.1); White Blood Count 7.6 10^3/uL (4.0-10.0)
[2020-05-11 21:05] VITALS: O2SAT 98
--- NOTE | 2020-05-11 21:10 | ED_ITS ---
HPI - SOB/Dyspnea General: Chief Complaint: Shortness of Breath/Dyspnea Stated Complaint: PAIN CHEST Time Seen by Provider: 05/11/20 20:54 History of Present Illness: HPI Narrative: Patient complains about ongoing chest pain for 7 months daily says she not her anxiety medicines at [facility] Dr. Brenner would not prescribe them. She does have anxiety. She does not have shortness of breath. MD elicited complaint: chest pain and anxiety Onset (ago): month(s) Timing: constant Severity: moderate Exacerbating factors: nothing Relieving factors: nothing Associated symptoms: Reports no associated symptoms; Deny abdominal pain, chest pain, extremity pain, fever(s), nausea or vomiting Treatment prior to arrival: none Review of Systems Const: Denies: fever(s), chills or body aches Eyes: Denies: change in vision or blurry vision ENMT: Denies: throat pain or nasal congestion Card: Denies: chest pain or dyspnea on exertion Resp: Denies: dyspnea, productive cough or non-productive cough GI: Denies: abdominal pain, nausea or vomiting Musc: Denies: extremity pain Skin/Breast: Denies: rash Neuro: Denies: headache(s) Psych: Reports: anxiety; Denies: depression Kalyan/Lymph: Denies: easy bruising PFSH ED PFSH: Medical History (Updated 05/10/20 @ 10:28 by Allan Jama MD) Anxiety Depression History of seizure Surgical History (Updated 05/10/20 @ 10:00 by Allan Jama MD) History of cholecystectomy Family History Family/Other Thyroid disease paternal aunt Breast cancer maternal great aunt Grandmother Thyroid disease paternal Breast cancer maternal Ovarian cancer paternal Diabetes maternal, paternal Grandfather Diabetes maternal, paternal Unknown Hypertension family members in general Social History Smoking and tobacco status: former smoker Quit status (tobacco): has quit using tobacco Year quit tobacco: 2004 Alcohol intake: current Alcohol intake frequency: holidays/special occasions only Female Reproductive History: Date of last menstrual period: 04/27/20 Physical Exam Const: COMMON NORMALS: no acute distress, average body habitus and patient oriented x3 HENMT: COMMON NORMALS: normocephalic HEAD & SCALP: normal to inspection and normocephalic FACE & SINUS: normal facial exam Eye: COMMON NORMALS: conjunctivae normal GENERAL EYE: appearance normal, both eyes and all related structures CONJUNCTIVA: Yes conjunctivae normal Neck/C-Spine: COMMON NORMALS: no JVD Chest: COMMONS NORMALS: normal inspection of the chest Resp: COMMON NORMALS: normal respiratory effort and clear to auscultation bilaterally AUSCULTATION: clear to auscultation bilaterally Cardio: COMMON NORMALS: no JVD, regular rate and regular rhythm RATE: regular rate RHYTHM: regular rhythm GI: COMMON NORMALS: Normal to inspection, nondistended, normoactive bowel sounds present Extremity: COMMON NORMALS: normal to inspection and full ROM Neuro: COMMON NORMALS: patient oriented x3 Course Vital Signs: Vital signs: Vital Signs Temperature 97.7 F 05/11/20 20:47 Pulse Rate 90 05/11/20 20:47 Respiratory Rate 18 05/11/20 20:47 Blood Pressure 128/81 05/11/20 20:47 Pulse Oximetry 98 05/11/20 21:05 MDM - SOB/Dyspnea Lab Data: Labs: Lab Results 05/11/20 Range/Units 20:30 WBC 7.6 (4.0-10.0) 10^3/ uL RBC 4.46 (4.1-5.3) 10^6/u L Hgb 12.9 (11.5-15.3) g/dL Hct 39.7 (37.0-47.0) % MCV 89.0 (81-99) fL MCH 28.9 (28.0-34.0) pg MCHC 32.5 (30.0-36.0) g/dL RDW 13.1 (12.1-15.1) % Plt Count 272 (130-400) 10^3/c mm MPV 12.1 H (7.4-10.4) fL Neut % (Auto) 58.5 % Lymph % (Auto) 33.7 % [place] % (Auto) 5.9 % Eos % (Auto) 1.2 % Baso % (Auto) 0.4 % Neut # (Auto) 4.44 (1.8-7.7) 10^3/u L Lymph # (Auto) 2.6 (0.8-4.8) 10^3/u L [place] # (Auto) 0.5 (0.2-0.9) 10^3/u L Eos # (Auto) 0.1 (0.0-0.8) 10^3/u L Baso # (Auto) 0.0 (0.0-0.1) 10^3/u L Nucleated RBC % (a uto) 0 % Nucleated RBCs # 0.0 /100WBC Discharge Plan Discharge Prescriptions: No Action trazodone 50 mg tablet 100 mg PO .HS Qty: 60 RF: 1 duloxetine [Cymbalta] 30 mg capsule,delayed release(DR/EC) 30 mg PO DAILY Qty: 30 RF: 4 Vitamin C 250 mg Tablet,Chewable 250 mg PO DAILY RF: 0 ibuprofen 200 mg Tablet 200 mg PO Q6H PRN (Reason: Pain) RF: 0 Naprosyn 500 mg tablet 500 mg PO BID PRN (Reason: pain) Qty: 20 RF: 0 Coding Level of Care Code ED 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
[2020-05-11 21:19] LABS: Alanine Aminotransferase 27 U/L (0-33); Albumin Level 4.4 g/dL (3.5-5.2); Alkaline Phosphatase 72 IU/L (35-105); Anion Gap 10.5 (5-19); Aspartate Amino Transferase 24 U/L (0-32); Blood Urea Nitrogen 16 mg/dL (6-20); Calcium 10.2 mg/dL (8.5-10.5); Carbon Dioxide 32 mmol/L (22-29); Chloride 98 mmol/L (98-107); Globulin 3.1 g/dL (1.3-4.6); Glomerular Filtration Rate 56.2 mL/min (90-130); Glucose 96 mg/dL (65-115); Osmolality Calculated 280 mOsm/kg (285-295); Potassium 3.5 mmol/L (3.5-5.1); Sodium 137 mmol/L (136-145); Total Bilirubin 0.4 mg/dL (0.15-1.2); Total Protein 7.5 g/dL (6.6-8.7)
[2020-05-11 21:50] LABS: Troponin(5th) Baseline 6 ng/L (0-10)
[2020-05-11] MEDS: ketorolac 10 mg Tablet PO (22:03)
[2020-05-11 22:08] VITALS: BP 183/66; PULSE 60; RESP 18; O2SAT 99
== END 2020-05-11 22:09 | disposition home or self-care (01) ==
PROVIDERS: Emergency Medicine; Emergency Provider Nurse Practitioner Family; PCP Family Medicine
DX: R07.9 Chest pain, unspecified (principal); Z87.891 Personal history of nicotine dependence
CPT/HCPCS: 12345; 71045; 80053; 84484; 85025; 93005; 99283; 99284

== ENCOUNTER → 2020-05-15 08:29 | Outpatient (BNVA) | payer MEDICAID, SELFPAY | PROVIDERS: PCP Family Medicine; Visit Provider Psychiatry & Neurology Psychiatry | DX: F43.12 Post-traumatic stress disorder, chronic (principal); F41.1 Generalized anxiety disorder; F41.0 Panic disorder [episodic paroxysmal anxiety] | CPT/HCPCS: 99214 ==

== ENCOUNTER 2020-05-17 10:37 | Outpatient (CLI) | payer MEDICAID, SELFPAY ==
--- NOTE | 2020-05-17 11:00 | MM_ITS ---
WS: [id number] LEFT DIGITAL MAMMOGRAPHY WITH CAD CLINICAL INFORMATION: left breast tenderness COMPARISON: TECHNIQUE: 5 views of the left breast were obtained. FINDINGS: The left breast is composed of heterogeneous fibroglandular density tissue, which can limit the detec tion of small underlying mass lesions. No suspicious focal mass, asymmetry, calcifications, or architectural distortion. No evidence of dionte gnancy. Ultrasound is pending in the area of concern. ULTRASOUND BREAST LEFT TECHNIQUE: Ultrasound left breast focused area of concern. CLINICAL INFORMATION: left breast tenderness COMPARISON: None. FINDINGS: Ultrasound left breast at the 10 to 2:00 position. No evidence of pathologic mass or lesion. No lesio ns to target for biopsy. Normal underlying breast tissue with normal fibrocystic changes. Findings ar e benign. MM/[place] [id number] IMPRESSION: BI-RADS: 2-Benign FOLLOW UP: Age 38 Recommend annual screening mammography age 40.
--- NOTE | 2020-05-17 11:45 | US_ITS ---
WS: [id number] LEFT DIGITAL MAMMOGRAPHY WITH CAD CLINICAL INFORMATION: left breast tenderness COMPARISON: TECHNIQUE: 5 views of the left breast were obtained. FINDINGS: The left breast is composed of heterogeneous fibroglandular density tissue, which can limit the detec tion of small underlying mass lesions. No suspicious focal mass, asymmetry, calcifications, or architectural distortion. No evidence of dionte gnancy. Ultrasound is pending in the area of concern. ULTRASOUND BREAST LEFT TECHNIQUE: Ultrasound left breast focused area of concern. CLINICAL INFORMATION: left breast tenderness COMPARISON: None. FINDINGS: Ultrasound left breast at the 10 to 2:00 position. No evidence of pathologic mass or lesion. No lesio ns to target for biopsy. Normal underlying breast tissue with normal fibrocystic changes. Findings ar e benign. US/US breast LT limited* [id number] IMPRESSION: BI-RADS: 2-Benign FOLLOW UP: Age 38 Recommend annual screening mammography age 40.
== END 2020-05-17 10:38 | disposition home or self-care (01) ==
LOC: RADSHAW 10:37
PROVIDERS: PCP Family Medicine; Visit Provider Obstetrics & Gynecology
DX: N64.4 Mastodynia (principal)
CPT/HCPCS: 76642; 77065

== ENCOUNTER 2020-05-19 22:06 | Emergency (ER) | payer MEDICAID, SELFPAY ==
--- NOTE | 2020-05-19 22:19 | W.ED.GENADLT ---
HPI - General Adult General: Chief complaint: General Medical Stated complaint: tingling down back/ weird taste in mouth Time Seen by Provider: 05/19/20 22:19 Source: patient Mode of arrival: ambulatory Limitations: no limitations History of Present Illness: HPI narrative: Patient comes in today with concerns of metallic taste in her mouth and tingling in her skin. Patient appears slightly anxious. Patient appears in no acute distress. Patient appears well. Patient appears in no pain. Patient reports that she had been visiting her yesterday and had spent overnight in a hotel last night and had returned home today. Patient did report swimming in a [place] today. Patient also reported eating some hot pockets that had been held in the cooler overnight. Patient reports that it started with a metallic taste in her mouth this evening after returning home. Review of Systems General: Reports: 10 or more systems reviewed and unremarkable except in HPI and below PFSH ED PFSH: Medical History (Updated 05/19/20 @ 22:47 by GEMMA Bagley) Anxiety Depression History of migraine headaches History of seizure Obesity Surgical History History of bilateral tubal ligation (06/04/16) LTF, right salpingectomy. Performed by Dr. Jama at [facility] in [place], [place]. 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 Appendectomy performed by Dr. Cota. History of cholecystectomy (~2011) Laparoscopic. S/P laparoscopic appendectomy (06/04/16) Performed at time of sterilization. Performed by Dr. Cota at [facility] in [place], [place] Family History Family/Other Thyroid disease paternal aunt Breast cancer maternal great aunt Grandmother Thyroid disease paternal Breast cancer maternal Ovarian cancer paternal Diabetes maternal, paternal Grandfather Diabetes maternal, paternal Unknown Hypertension family members in general Social History Smoking and tobacco status: former smoker Quit status (tobacco): has quit using tobacco Year quit tobacco: 2004 Alcohol intake: current Alcohol intake frequency: holidays/special occasions only Female Reproductive History: Date of last menstrual period: 04/27/20 Physical Exam Const: COMMON NORMALS: no acute distress and patient oriented x3 GENERAL APPEARANCE: cooperative HENMT: COMMON NORMALS: normocephalic, TM's normal bilaterally and Normal external nose present HEAD & SCALP: normal to inspection and normocephalic NOSE: Normal external nose present TYMPANIC MEMBRANE: TM's normal bilaterally MOUTH: Normal oral and palatal mucosa present THROAT: posterior oropharynx normal Eye: GENERAL EYE: appearance normal, both eyes and all related structures Neck/C-Spine: COMMON NORMALS: full ROM Lymph: LYMPHATIC: no lymphadenopathy noted Chest: COMMONS NORMALS: normal inspection of the chest Resp: COMMON NORMALS: normal respiratory effort EFFORT & INSPECTION: Yes able to speak in complete sentences Cardio: COMMON NORMALS: regular rate and regular rhythm RATE: regular rate RHYTHM: regular rhythm GI: COMMON NORMALS: non-tender : COMMON NORMALS: Yes no CVA tenderness BLADDER/KIDNEY EXAM: Yes no CVA tenderness Back/Pelvis: COMMON NORMALS: no CVA tenderness and thoracic and lumbar spine normal to inspection Extremity: COMMON NORMALS: normal to inspection Neuro: COMMON NORMALS: patient oriented x3 and moves all extremities Psych: COMMON NORMALS: mental status grossly normal and cooperative Skin: COMMON NORMALS: no rashes or lesions noted GENERAL SKIN EXAM: no rashes or lesions noted Course Vital Signs: Vital signs: Vital Signs Temperature 98.0 F 05/19/20 22:28 Pulse Rate 89 05/19/20 22:28 Respiratory Rate 18 05/19/20 22:28 Blood Pressure 128/74 05/19/20 22:28 Pulse Oximetry 99 05/19/20 22:28 MDM - General Adult MDM Narrative: Medical decision making narrative: Patient comes in for metallic taste in the mouth and tingling in her skin. On exam patient appears well. Patient does have some dry oral mucosa. Respirations were even lungs were clear to auscultation vital signs were normal. Differential diagnosis includes but not limited to anxiety, adverse drug effect, food poisoning. Reviewed exam with patient recommending treatment for nausea and for her anxiety. Encourage plenty of fluids tried reassured patient that did not sound like any organic phosphate poisoning or any other concern of environmental hazards. Patient was treated for anxiety and for nausea. Patient reported understanding agreed to plan and need for follow-up as needed. Discharge Plan Discharge Patient Disposition: Home Clinical Impression: Anxiety, Metallic taste Condition: Stable Prescriptions: No Action hydroxyzine HCl 25 mg tablet 25 mg PO QID PRN (Reason: anxiety/panic attacks) Qty: 120 RF: 0 duloxetine [Cymbalta] 30 mg capsule,delayed release(DR/EC) 30 mg PO DAILY Qty: 30 RF: 4 ascorbic acid (vitamin C) [Vitamin C] 250 mg Tablet,Chewable 250 mg PO DAILY RF: 0 Excedrin Extra Strength 250-250-65 mg Tablet 2 tab PO Q4H PRN (Reason: Pain) RF: 0 Discharge Orders: Discharge Order (Routine); Ordered 05/19/20 Ordered By: Raleigh Loera Referrals: Jonna Brenner DO [Primary Care Provider] - Discharge Diet: Usual diet Discharge Activity: Increase activity as tolerated Activity Restrictions/Additional Instructions: Home and rest. Good oral care. Drink plenty of water. Follow-up with primary care for further evaluation and treatment. Return to the emergency department for new concerns. Discharge Date/Time: 05/19/20 23:03 Coding Level of Care Code ED Fibre Composite Technician for Jamel Fwd Exam Comprehensive
[2020-05-19 22:28] VITALS: BP 128/74; PULSE 89; RESP 18; TEMP 36.7; O2SAT 99; BMI 39.0
[2020-05-19] MEDS: ondansetron 4 MG Tablet PO (23:01)
[2020-05-19] MEDS: LORazepam 0.5 mg Tablet 0.25 MG PO (23:01)
== END 2020-05-19 23:03 | disposition home or self-care (01) ==
PROVIDERS: Emergency Provider Nurse Practitioner Family; PCP Family Medicine
DX: F41.9 Anxiety disorder, unspecified (principal); R43.8 Other disturbances of smell and taste; Z87.891 Personal history of nicotine dependence
CPT/HCPCS: 12345; 99281; 99283; Q0162

== ENCOUNTER → 2020-06-12 08:15 | Outpatient (BNVA) | payer MEDICAID, SELFPAY | PROVIDERS: PCP Family Medicine; Visit Provider Psychiatry & Neurology Psychiatry | DX: F43.12 Post-traumatic stress disorder, chronic (principal); F41.1 Generalized anxiety disorder; F41.0 Panic disorder [episodic paroxysmal anxiety] | CPT/HCPCS: 99213 ==

== ENCOUNTER 2020-07-11 06:00 | Outpatient (RCR) | payer MEDICAID, SELFPAY | END 2020-08-04 23:59 | disposition home or self-care (01) | LOC: SPT 06:00 | PROVIDERS: PCP Family Medicine; Referring Provider Family Medicine; Visit Provider Family Medicine | DX: M54.9 Dorsalgia, unspecified (principal); G89.29 Other chronic pain | CPT/HCPCS: 97161 ==

== ENCOUNTER → 2020-07-29 10:07 | Outpatient (BNVA) | payer MEDICAID, SELFPAY | PROVIDERS: PCP Family Medicine; Visit Provider Emergency Medicine | DX: Z11.59 Encounter for screening for other viral diseases (principal) | CPT/HCPCS: 87635 ==

== ENCOUNTER → 2020-08-06 07:36 | Outpatient (BNVA) | payer MEDICAID, SELFPAY | PROVIDERS: PCP Family Medicine; Visit Provider Psychiatry & Neurology Psychiatry | DX: F41.1 Generalized anxiety disorder (principal); F41.0 Panic disorder [episodic paroxysmal anxiety]; F43.12 Post-traumatic stress disorder, chronic | CPT/HCPCS: 99213 ==

== ENCOUNTER → 2020-08-13 10:21 | Outpatient (BNVA) | payer MEDICAID, SELFPAY | PROVIDERS: PCP Family Medicine; Visit Provider Family Medicine | DX: N89.8 Other specified noninflammatory disorders of vagina (principal); N39.3 Stress incontinence (female) (male) | CPT/HCPCS: 81000; 87070; 87086; 87205 ==

== ENCOUNTER → 2020-08-21 17:07 | Outpatient (BNVA) | payer MEDICAID, SELFPAY | PROVIDERS: PCP Family Medicine; Visit Provider Nurse Practitioner Family | DX: Z20.828 Contact with and (suspected) exposure to other viral communicable diseases (principal) | CPT/HCPCS: 87635 ==

== ENCOUNTER → 2020-09-14 10:31 | Outpatient (BNVA) | payer MEDICAID, SELFPAY | PROVIDERS: PCP Family Medicine; Visit Provider Nurse Practitioner Family | DX: R19.8 Other specified symptoms and signs involving the digestive system and abdomen (principal); B37.3 Candidiasis of vulva and vagina; R10.84 Generalized abdominal pain | CPT/HCPCS: 81000 ==

== ENCOUNTER → 2020-09-19 13:15 | Outpatient (BNVA) | payer MEDICAID, SELFPAY | PROVIDERS: PCP Family Medicine; Visit Provider Family Medicine | DX: R63.5 Abnormal weight gain (principal); I49.8 Other specified cardiac arrhythmias; Z11.59 Encounter for screening for other viral diseases | CPT/HCPCS: 80048; 83036; 87635 ==

== ENCOUNTER 2020-09-28 10:47 | Emergency (ER) | payer MEDICAID, SELFPAY ==
[2020-09-28 10:56] VITALS: BP 142/92; PULSE 65; RESP 18; TEMP 36; O2SAT 96; BMI 43.0
--- NOTE | 2020-09-28 11:17 | ECG_ITS ---
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 Measurements Intervals [place] Rate: 63 P: 26 [place]: 150 QRS: 20 QRSD: 79 T: 19 QT: 394 QTc: 405 Interpretive Statements SINUS RHYTHM Compared to ECG 05/11/2020 20:56:17 No significant changes Electronically Signed On 09-28-2020 17:51:59 PATIENT CASE COORDINATOR by Eyad Aly M.D. [id number]
--- NOTE | 2020-09-28 11:21 | ED_ITS ---
HPI - COVID General: Chief Complaint: COVID symptoms Stated Complaint: nausea, vomiting, SOB Time Seen by Provider: 09/28/20 11:05 Triage information: Has fever, cough or shortness of breath . Exposure to COVID + person last 14 days History of Present Illness: HPI Narrative: The patient is a 34-year-old female who comes to the ER complaining of Covid symptoms. She says she has had chills, body aches, headache, nausea, loss of smell and taste. She says she has had multiple family members test positive recently though they are off of quarantine now. She says she has the same symptoms they have had. Denies shortness of b reath or chest pain. She has a history of palpitations and is currently wearing a Holter monitor. MD complaint: has COVID symptoms Prior covid testing: no COVID 19 common symptoms: positive chills, cough, non-productive cough, body aches, loss of sense of smell and/or taste, nausea and vomiting; negative dyspnea, headache(s), throat pain or nasal congestion COVID 19 other sytmptoms: negative chest pain or confusion COVID Results: SARS-CoV-2 Antigen (Rapid) Positive (Negative) H 09/28/20 12:19 09/28/20 SARS-CoV-2 RNA (RT-PCR) Not detected (NOT DETECTED) 09/19/20 16:42 09/19/20 Review of Systems General: Reports: 10 or more systems reviewed and unremarkable except in HPI and below Const: Reports: body aches Eyes: Denies: change in vision, blurry vision or eye redness ENMT: Denies: throat pain, swelling of lips/tongue, ear or mastoid pain or nasal congestion Card: Denies: chest pain, palpitations, irregular heart rhythm, edema, dyspnea on exertion or orthopnea Resp: Reports: non-productive cough; Denies: dyspnea GI: Reports: nausea and vomiting : Denies: flank pain, difficulty voiding, urinary frequency or urinary urgency Musc: Reports: other (General muscle aches); Denies: neck pain, back pain, extremity pain, joint pain, joint redness, limited range of motion or muscle weakness Skin/Breast: Denies: rash, pruritus, erythema, skin pain or skin tenderness Neuro: Denies: headache(s), numbness in extremities, weakness in extremities, sensory changes, difficulty walking, dizziness, confusion or Slurred speech present Psych: Denies: anxiety or depression Endo: Denies: polyuria All/Imm: Denies: urticaria, throat swelling or tongue swelling PFSH ED PFSH: Medical History (Updated 09/28/20 @ 13:16 by Carlito Guido MD) Anxiety Depression History of migraine headaches History of seizure Obesity Surgical History History of bilateral tubal ligation (06/04/16) LTF, right salpingectomy. [place]. [place] [facility] [place] 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 Appendectomy performed by Dr. Cota. History of cholecystectomy (~2011) Laparoscopic. S/P laparoscopic appendectomy (06/04/16) Performed at time of sterilization. [place]. Cota [place] [facility] [place] Family History Family/Other Thyroid disease paternal aunt Breast cancer maternal great aunt Grandmother Thyroid disease paternal Breast cancer maternal Ovarian cancer paternal Diabetes maternal, paternal Grandfather Diabetes maternal, paternal Unknown Hypertension family members in general Social History Smoking and tobacco status: former smoker Quit status (tobacco): has quit using tobacco Year quit tobacco: 2004 Alcohol intake: current Alcohol intake frequency: holidays/special occasions only Female Reproductive History: Date of last menstrual period: 04/27/20 Physical Exam Const: COMMON NORMALS: no acute distress, average body habitus, patient oriented x3, no limitations, healthy appearing, alert and well nourished GENERAL APPEARANCE: cooperative, comfortable, well kempt and well developed ORIENTATION/CONSCIOUSNESS: Yes awake, Yes oriented to person, Yes oriented to place and Yes oriented to time HENMT: COMMON NORMALS: normocephalic, external ears normal and Normal external nose present HEAD & SCALP: normal to inspection and normocephalic NOSE: Normal external nose present EXTERNAL EAR: Yes external ears normal MOUTH: Normal oral and palatal mucosa present THROAT: posterior oropharynx normal Eye: COMMON NORMALS: Equal, round and reactive pupils present and EOMs intact bilaterally GENERAL EYE: appearance normal, both eyes and all related structures PUPIL: Yes Equal, round and reactive pupils present Neck/C-Spine: COMMON NORMALS: full ROM, no lymphadenopathy, no meningeal signs and no JVD GENERAL: Yes normal visual inspection Lymph: LYMPHATIC: no lymphadenopathy noted Chest: COMMONS NORMALS: normal inspection of the chest and normal palpation of entire chest wall Resp: COMMON NORMALS: normal respiratory effort, No retractions, No use of accessory muscles, clear to auscultation bilaterally and percussion normal EFFORT & INSPECTION: Yes able to speak in complete sentences AUSCULTATION: clear to auscultation bilaterally PERCUSSION: percussion normal Cardio: COMMON NORMALS: no JVD, regular rate, regular rhythm, S1 normal heart sound present, S2 normal heart sound present and Peripheral pulses 2+ throughout RATE: regular rate RHYTHM: regular rhythm HEART SOUNDS: S1 normal heart sound present and S2 normal heart sound present PERIPHERAL PULSES: Peripheral pulses 2+ throughout GI: COMMON NORMALS: Normal to inspection, nondistended, normoactive bowel sounds present, Soft to palpation, non-tender and no masses INSPECTION: Yes normal to inspection PALPATION: Yes Soft to palpation : COMMON NORMALS: Yes no CVA tenderness BLADDER/KIDNEY EXAM: Yes no CVA tenderness Back/Pelvis: COMMON NORMALS: no CVA tenderness, thoracic and lumbar spine normal to inspection, no thoracic nor lumbar tenderness and thoraco-lumbar ROM normal Extremity: COMMON NORMALS: normal to inspection, full ROM, capillary refill normal, no joint enlargement and no pedal edema GENERAL: Yes normal exam except as noted Neuro: COMMON NORMALS: patient oriented x3, CN's II-XII intact bilaterally, moves all extremities, no focal motor deficits, no sensory deficits noted and gait normal SENSORIUM/ORIENTATION: Yes alert, Yes oriented to person, Yes oriented to place and Yes oriented to time MENINGEAL SIGNS: Yes no meningeal signs Psych: COMMON NORMALS: mental status grossly normal, Normal thought process present, cooperative, normal affect and speech normal APPEARANCE: Yes well kempt ATTITUDE: Yes calm SPEECH: Yes normal speech THOUGHT PROCESS: Normal thought process present Skin: COMMON NORMALS: no rashes or lesions noted GENERAL SKIN EXAM: no rashes or lesions noted Course Vital Signs: Vital signs: Vital Signs Temperature 96.8 F L 09/28/20 10:56 Pulse Rate 65 09/28/20 10:56 Respiratory Rate 18 12/25/20 10:56 Blood Pressure 142/92 09/28/20 10:56 Pulse Oximetry 100 09/28/20 12:31 MDM - COVID MDM Narrative: Medical decision making narrative: The patient's Covid test came back positive. Is her on steroids and discharge also with azithromycin. Discussed with her self quarantine protocols according to the CDC for 7 to 10 days. Return to the ER with worsening symptoms. Follow-up with your primary care physician in 3 to 5 days. Lab Data: Labs: Lab Results 09/28/20 Range/Units 12:19 SARS-CoV-2 Ag (Rap id) Positive H (Negative) COVID Results: SARS-CoV-2 Antigen (Rapid) Positive (Negative) H 09/28/20 12:19 09/28/20 SARS-CoV-2 RNA (RT-PCR) Not detected (NOT DETECTED) 09/19/20 16:42 09/19/20 Discharge Plan Discharge Patient Disposition: Home Clinical Impression: COVID-19 Condition: Stable Prescriptions: New Medrol (Kai) 4 mg tablets,dose pack See Rx Instructions PO .COMPLEX Qty: 21 RF: 0 azithromycin 250 mg tablet See Rx Instructions .ROUTE .COMPLEX Qty: 6 RF: 0 No Action hydroxyzine HCl 25 mg tablet 25 mg PO QID PRN (Reason: anxiety/panic attacks) Qty: 120 RF: 2 Cymbalta 20 mg capsule,delayed release(DR/EC) 20 mg PO DAILY@0700 RF: 0 Flintstones Complete Tablet,Chewable 1 tab PO DAILY@1700 RF: 0 Discharge Orders: Discharge ED (Routine); Ordered 09/28/20 Ordered By: Carlito Guido Referrals: Jonna Brenner DO [Primary Care Provider] - Discharge Diet: Usual diet Discharge Activity: Resume usual activity Activity Restrictions/Additional Instructions: You have COVID-19. Please self quarantine at home for 7 to 10 days as recommended by the CDC. Avoid contact with other people and increase cleanliness routines like washing hands. If you must leave your house please wear a mask. Return to the ER if your symptoms worsen, otherwise try to stay at home. Follow-up with your primary care physician in 3 to 5 days if you are able. If you need to we are always here for you. Coding Level of Care Code ED Client Server Developer for Jamel Fwd Exam Comprehensive
[2020-09-28] MEDS: acetaminophen 325 mg Tablet 650 MG PO (12:14)
[2020-09-28] MEDS: ondansetron 4 MG Tablet PO (12:15)
[2020-09-28 12:31] VITALS: O2SAT 100
[2020-09-28 12:49] LABS: SARS Covid-2 Antigen Positive (Negative)
[2020-09-28] MEDS: predniSONE 20 mg Tablet 40 MG PO (13:15)
[2020-09-28 13:29] VITALS: BP 129/80; PULSE 63; RESP 18; O2SAT 100
== END 2020-09-28 13:29 | disposition home or self-care (01) ==
PROVIDERS: Emergency Provider Family Medicine; PCP Family Medicine
DX: Z20.828 Contact with and (suspected) exposure to other viral communicable diseases (principal); Z87.891 Personal history of nicotine dependence
CPT/HCPCS: 12345; 87426; 93005; 99282; 99283; J7512; Q0162

== ENCOUNTER → 2020-10-16 12:45 | Outpatient (BNVA) | payer BC, MEDICAID, SELFPAY | PROVIDERS: PCP Family Medicine; Visit Provider Nurse Practitioner Family | DX: N39.0 Urinary tract infection, site not specified (principal); N76.4 Abscess of vulva | CPT/HCPCS: 81000 ==

== ENCOUNTER → 2020-11-08 10:25 | Outpatient (BNVA) | payer BC, MEDICAID, SELFPAY | PROVIDERS: PCP Family Medicine; Visit Provider Psychiatry & Neurology Psychiatry | DX: J02.9 Acute pharyngitis, unspecified (principal) | CPT/HCPCS: 87071; 87400; 87880 ==

== ENCOUNTER → 2020-11-12 08:20 | Outpatient (BNVA) | payer MEDICAID, SELFPAY | PROVIDERS: PCP Family Medicine; Visit Provider Psychiatry & Neurology Psychiatry | DX: F41.0 Panic disorder [episodic paroxysmal anxiety] (principal); F41.1 Generalized anxiety disorder; F43.12 Post-traumatic stress disorder, chronic; Z87.898 Personal history of other specified conditions | CPT/HCPCS: 99214 ==

== ENCOUNTER → 2020-11-13 14:23 | Outpatient (BNVA) | payer MEDICAID, SELFPAY | PROVIDERS: PCP Family Medicine; Visit Provider Nurse Practitioner Family | DX: Z20.828 Contact with and (suspected) exposure to other viral communicable diseases (principal) | CPT/HCPCS: 87635 ==

== ENCOUNTER 2020-11-14 20:33 | Emergency (ER) | payer BC, MEDICAID, SELFPAY ==
[2020-11-14 20:43] VITALS: BP 130/89; PULSE 87; RESP 18; TEMP 36.6; O2SAT 98; BMI 41.5
[2020-11-14 21:12] VITALS: BP 115/85; PULSE 77; RESP 11; O2SAT 99
--- NOTE | 2020-11-14 21:15 | XR_ITS ---
WS: [id number] Portable AP upright chest, 11/14/2020 Clinical Data: CP Comparison: Portable chest, 05/11/2020. Findings: No nodules, masses or effusions are seen. The heart is normal. The pulmonary vascularity is not increased. No pneumonia or pneumothorax is seen. Monitor leads on the chest wall. XR/XR chest 1V portable 14414 Impression: Negative chest.
--- NOTE | 2020-11-14 21:16 | ECG_ITS ---
[facility] Test Date: 2020-11-14 Pat Name: Payton Galloway Department: Room: Gender: Female [place] Passer: : 1985 Requested By: Raissa Howard Order Number: [id number] Caryl MD: Amanda iEd M.D. Measurements Intervals [place] Rate: 77 P: 41 KS: 183 QRS: 17 QRSD: 81 T: 17 QT: 382 QTc: 435 Interpretive Statements SINUS RHYTHM Compared to ECG 09/28/2020 12:06:35 No significant changes Electronically Signed On 11-15-2020 7:26:29 WELL LOGGER by Amanda Eid M.D. [id number]
[2020-11-14 21:24] LABS: Basophils % 0.4 %; Eosinophils # 0.1 10^3/uL (0.0-0.8); Eosinophils % 1.5 %; Hematocrit 39.2 % (37.0-47.0); Hemoglobin 13.1 g/dL (11.5-15.3); Lymphocytes # 2.3 10^3/uL (0.8-4.8); Lymphocytes % 31.3 %; Mean Corpuscular HGB Conc 33.4 g/dL (30.0-36.0); Mean Corpuscular Hemoglobin 29.3 pg (28.0-34.0); Mean Corpuscular Volume 87.7 fL (81-99); Mean Platelet Volume 11.9 fL (7.4-10.4); Monocytes # 0.4 10^3/uL (0.2-0.9); Monocytes % 5.5 %; Neutrophils # 4.55 10^3/uL (1.8-7.7); Nucleated Red Blood Cells % 0 %; Platelet Count 238 10^3/cmm (130-400); Red Blood Count 4.47 10^6/uL (4.1-5.3); Red Cell Distribution Width 13.3 % (12.1-15.1); White Blood Count 7.5 10^3/uL (4.0-10.0)
--- NOTE | 2020-11-14 21:24 | ED_ITS ---
HPI - General Adult General: Chief complaint: General Medical Stated complaint: N/chest /abd pain/Tingling over body/ COV neg Time Seen by Provider: 11/14/20 21:01 Source: patient Mode of arrival: ambulatory Limitations: no limitations History of Present Illness: HPI narrative: 34-year-old female patient presents to the emergency department with stomach pain and chest pain x3 to 4 days. She reports persistent nausea, does improve with use of [id number] Dramamine. She reports pain in her chest occurs when she takes in a deep breath and cough. Pain in her chest is located underneath her breast. She reports nonproductive cough, congestion x3 days along with shortness of breath. States former history of tobacco abuse but quit 15 years ago. She reports her stomach is persistently nauseated, history of cholecystectomy, appendectomy and tubal ligation. She was seen by her primary care physician yesterday, strep screen, influenza COVID-19 testing were negative. PCR COVID-19 test was completed. She states her son had strep throat last week, she denies throat pain upon exam. Onset (ago): day(s) (3-4) Location: chest and abdomen Severity: moderate Quality: aching and dull Pain Consistency: constant Relieving factors: immobilization Exacerbating factors: eating and movement Associated symptoms: Reports chest pain, cough, nausea, short of breath and vomiting; Deny diaphoresis, dyspnea, headache(s), rash or palpitations Treatments prior to arrival: other (Dramamine) Review of Systems General: Reports: 10 or more systems reviewed and unremarkable except in HPI and below Const: Denies: fever(s), chills or diaphoresis Eyes: Denies: blurry vision or eye redness ENMT: Denies: throat pain, dental pain or disequilibrium Card: Reports: chest pain and dyspnea on exertion; Denies: palpitations, swelling of feet/ankles, lightheadedness, orthopnea or leg pain with exertion Resp: Denies: dyspnea, productive cough, non-productive cough or wheezing GI: Reports: abdominal pain, nausea, vomiting and heartburn; Denies: hematemesis, diarrhea, constipation or GI cramping : Denies: difficulty voiding or dysuria Musc: Denies: neck pain, back pain, joint pain, joint stiffness, muscle cramps or muscle weakness Skin/Breast: Denies: rash, pruritus, erythema or skin tenderness Neuro: Denies: headache(s), weakness in extremities or behavioral changes Psych: Reports: anxiety and depression (by history, not changed) Kalyan/Lymph: Denies: easy bruising PFSH ED PFSH: Medical History (Updated 11/14/20 @ 23:04 by ADAM Luna) Anxiety Depression History of migraine headaches History of seizure Obesity Surgical History History of bilateral tubal ligation (06/04/16) LTF, right salpingectomy. Per[place]. Jama [place] [facility] [place], [place]. 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 Appendectomy performed by Dr. Cota. History of cholecystectomy (~2011) Laparoscopic. S/P laparoscopic appendectomy (06/04/16) Performed at time of sterilization. Performed by Dr. Cota at [facility] [place], [place] Family History Family/Other Thyroid disease paternal aunt Breast cancer maternal great aunt Grandmother Thyroid disease paternal Breast cancer maternal Ovarian cancer paternal Diabetes maternal, paternal Grandfather Diabetes maternal, paternal Unknown Hypertension family members in general Social History Smoking and tobacco status: former smoker Quit status (tobacco): has quit using tobacco Year quit tobacco: 2004 Alcohol intake: current Alcohol intake frequency: holidays/special occasions only Female Reproductive History: Date of last menstrual period: 10/28/20 Physical Exam Const: COMMON NORMALS: no acute distress, patient oriented x3, healthy appearing and alert GENERAL APPEARANCE: cooperative, comfortable and well hydrated HENMT: COMMON NORMALS: normocephalic, Normal external nose present and moist oral mucous membranes HEAD & SCALP: normocephalic NOSE: Normal external nose present Eye: COMMON NORMALS: Equal, round and reactive pupils present and EOMs intact bilaterally GENERAL EYE: appearance normal, both eyes and all related structures PUPIL: Yes Equal, round and reactive pupils present Neck/C-Spine: COMMON NORMALS: full ROM and no lymphadenopathy GENERAL: Yes normal visual inspection and Yes trachea midline CERVICAL SPINE: Yes cervical ROM normal Lymph: LYMPHATIC: no lymphadenopathy noted Chest: COMMONS NORMALS: normal inspection of the chest and normal palpation of entire chest wall CHEST: Yes localized rib tenderness with anteroposterior compression (bilateral lower anterior and lateral) and Yes tenderness Resp: COMMON NORMALS: normal respiratory effort, No retractions, No use of accessory muscles and clear to auscultation bilaterally EFFORT & INSPECTION: Yes able to speak in complete sentences, No labored and No audible wheezes AUSCULTATION: clear to auscultation bilaterally Cardio: COMMON NORMALS: regular rate, regular rhythm, S1 normal heart sound present, S2 normal heart sound present and Peripheral pulses 2+ throughout RATE: regular rate RHYTHM: regular rhythm HEART SOUNDS: S1 normal heart sound present and S2 normal heart sound present PERIPHERAL PULSES: Peripheral pulses 2+ throughout GI: COMMON NORMALS: Normal to inspection, nondistended, normoactive bowel sounds present and Soft to palpation INSPECTION: Yes normal to inspection, No abdominal wall ecchymosis, No abdominal distension, Yes central obesity and No visible herniation PALPATION: Yes Soft to palpation and Yes Tenderness to palpation present (GI) (diffuse) : COMMON NORMALS: Yes no CVA tenderness BLADDER/KIDNEY EXAM: Yes no CVA tenderness Back/Pelvis: COMMON NORMALS: no CVA tenderness and thoracic and lumbar spine normal to inspection Extremity: COMMON NORMALS: normal to inspection and capillary refill normal Neuro: COMMON NORMALS: patient oriented x3 and no focal motor deficits SENSORIUM/ORIENTATION: Yes alert Psych: COMMON NORMALS: mental status grossly normal, Normal thought process present and cooperative ACTIVITY/MOTOR BEHAVIOR: Yes appropriate eye contact THOUGHT PROCESS: Normal thought process present Skin: COMMON NORMALS: no rashes or lesions noted and turgor normal GENERAL SKIN EXAM: no rashes or lesions noted and turgor normal Course Vital Signs: Vital signs: Vital Signs Temperature 97.5 F L 11/14/20 23:25 Pulse Rate 96 11/14/20 23:25 Respiratory Rate 17 11/14/20 23:25 Blood Pressure 117/78 11/14/20 23:25 Pulse Oximetry 99 11/14/20 23:25 MDM - General Adult MDM Narrative: Medical decision making narrative: 34-year-old female patient presents to the emergency department with nonproductive cough, congestion, and persistent nausea along with chest pain and shortness of breath that has occurred x3 to 4 days. She was evaluated by her primary care yesterday, Covid PCR, strep screen and influenza antigens negative. Chest x-ray without acute abnormality visualized, radiology interpretation pending. CBC and chemistry without acute findings, lipase normal 31, EKG without acute changes, troponin , she was prescribed Pepcid, Zofran and Toradol, nausea resolved, Toradol improved rib tenderness. She was prescribed albuterol, Ventolin HFA for shortness of breath and cough. Serial troponins negative. She was not tachycardic, Wells criteria 0 for PE. Patient states was feeling much better after IV fluids and administration of medication, requests to go home. Was advised to return to emergency department for worsening symptoms and to follow- up with her primary care if symptoms persist. Prescriptions for Zofran, Pepcid provided. Lab Data: Labs: Lab Results 11/14/20 11/14/20 11/14/20 Range/Units 21:10 21:10 21:10 WBC 7.5 (4.0-10.0) 10^3/ uL RBC 4.47 (4.1-5.3) 10^6/u L Hgb 13.1 (11.5-15.3) g/dL Hct 39.2 (37.0-47.0) % MCV 87.7 (81-99) fL MCH 29.3 (28.0-34.0) pg MCHC 33.4 (30.0-36.0) g/dL RDW 13.3 (12.1-15.1) % Plt Count 238 (130-400) 10^3/c mm MPV 11.9 H (7.4-10.4) fL Neut % (Auto) 61.0 % Lymph % (Auto) 31.3 % Navarro % (Auto) 5.5 % Eos % (Auto) 1.5 % Baso % (Auto) 0.4 % Neut # (Auto) 4.55 (1.8-7.7) 10^3/u L Lymph # (Auto) 2.3 (0.8-4.8) 10^3/u L Navarro # (Auto) 0.4 (0.2-0.9) 10^3/u L Eos # (Auto) 0.1 (0.0-0.8) 10^3/u L Baso # (Auto) 0.0 (0.0-0.1) 10^3/u L Nucleated RBC % (a uto) 0 % Nucleated RBCs # 0.0 /100WBC Sodium 138 (136-145) mmol/L Potassium 3.6 (3.5-5.1) mmol/L Chloride 99 (98-107) mmol/L Carbon Dioxide 30 H (22-29) mmol/L Anion Gap 12.6 (5-19) BUN 12 (6-20) mg/dL Creatinine 0.6 (0.5-0.9) mg/dL GFR Calculation 113.1 (90-130) mL/min Glucose 86 (65-115) mg/dL Calculated Osmolal ity 285 (285-295) mOsm/k g Calcium 9.3 (8.5-10.5) mg/dL Total Bilirubin 0.4 (0.15-1.2) mg/dL AST 18 (0-32) U/L ALT 21 (0-33) U/L Alkaline Phosphata se 72 (35-105) IU/L Troponin T Baselin e 6 (0-10) ng/L Troponin T 120 Min [place] (0-10) ng/L Delta Troponin T (0-10) ABS# Total Protein 7.0 (6.6-8.7) g/dL Albumin 4.0 (3.5-5.2) g/dL Globulin 3.0 (1.3-4.6) g/dL Lipase 31 (13-60) U/L Urine Color (Yellow) Urine Appearance (CLEAR) Urine pH (5-7) Ur Specific Gravit y (1.005-1.030) Urine Protein (Negative) Urine Glucose (UA) (Normal) Urine Ketones (Negative) Urine Blood (Negative) Urine Nitrate (Negative) Urine Bilirubin (Negative) Urine Urobilinogen (Negative) mg/dL Ur Leukocyte Zeina ase (Negative) Urine RBC (0-2) /hpf Urine WBC (0-5) /hpf Ur Squamous Epith Cells (0-5) /hpf Amorphous Sediment Urine Bacteria (NONE) /hpf 11/14/20 11/14/20 Range/Units 21:36 23:00 WBC (4.0-10.0) 10^3/ uL RBC (4.1-5.3) 10^6/u L Hgb (11.5-15.3) g/dL Hct (37.0-47.0) % MCV (81-99) fL MCH (28.0-34.0) pg MCHC (30.0-36.0) g/dL RDW (12.1-15.1) % Plt Count (130-400) 10^3/c mm MPV (7.4-10.4) fL Neut % (Auto) % Lymph % (Auto) % [place]arro % (Auto) % Eos % (Auto) % Baso % (Auto) % Neut # (Auto) (1.8-7.7) 10^3/u L Lymph # (Auto) (0.8-4.8) 10^3/u L [place]arro # (Auto) (0.2-0.9) 10^3/u L Eos # (Auto) (0.0-0.8) 10^3/u L Baso # (Auto) (0.0-0.1) 10^3/u L Nucleated RBC % (a uto) % Nucleated RBCs # /100WBC Sodium (136-145) mmol/L Potassium (3.5-5.1) mmol/L Chloride (98-107) mmol/L Carbon Dioxide (22-29) mmol/L Anion Gap (5-19) BUN (6-20) mg/dL Creatinine (0.5-0.9) mg/dL GFR Calculation (90-130) mL/min Glucose (65-115) mg/dL Calculated Osmolal ity (285-295) mOsm/k g Calcium (8.5-10.5) mg/dL Total Bilirubin (0.15-1.2) mg/dL AST (0-32) U/L ALT (0-33) U/L Alkaline Phosphata se (35-105) IU/L Troponin T Baselin e (0-10) ng/L Troponin T 120 Min [place] 6.00 (0-10) ng/L Delta Troponin T 0 (0-10) ABS# Total Protein (6.6-8.7) g/dL Albumin (3.5-5.2) g/dL Globulin (1.3-4.6) g/dL Lipase (13-60) U/L Urine Color Yellow (Yellow) Urine Appearance Sl hazy (CLEAR) Urine pH 5 (5-7) Ur Specific Gravit y 1.020 (1.005-1.030) Urine Protein Neg (Negative) Urine Glucose (UA) Norm (Normal) Urine Ketones Negative (Negative) Urine Blood Neg (Negative) Urine Nitrate Negative (Negative) Urine Bilirubin Neg (Negative) Urine Urobilinogen Norm (Negative) mg/dL Ur Leukocyte Zeina ase 1+ H (Negative) Urine RBC 0-4 H (0-2) /hpf Urine WBC 15-25 H (0-5) /hpf Ur Squamous Epith Cells 15-25 H (0-5) /hpf Amorphous Sediment Not Reportable Urine Bacteria 1+ H (NONE) /hpf EKG Data^: EKG 1: EKG interpretation date: 11/14/20 EKG interpretation time: 20:45 Prior EKG tracings: available for review Other EKG comments: No acute changes from EKG completed 09/28/2020 EKG 2: EKG interpretation date: 11/14/20 EKG interpretation time: 22:55 Prior EKG tracings: available for review Other EKG comments: Sinus rhythm, normal ECG, ventricular rate 77 Discharge Plan Discharge Patient Disposition: Home Clinical Impression: Viral upper respiratory illness UTI (urinary tract infection) Qualifiers: Urinary tract infection type: acute cystitis Hematuria presence: without hematuria Qualified Code(s): N30.00 - Acute cystitis without hematuria Gastritis Qualifiers: Gastritis type: unspecified gastritis Chronicity: acute Gastritis bleeding: without bleeding Qualified Code(s): K29.00 - Acute gastritis without bleeding Condition: Stable Prescriptions: New Zofran 4 mg tablet 4 mg PO Q4H Qty: 10 RF: 0 Pepcid 20 mg tablet 20 mg PO BID Qty: 20 RF: 0 cefdinir 300 mg capsule 300 mg PO BID 7 Days Qty: 14 RF: 0 No Action buspirone 5 mg tablet 5 mg PO TID Qty: 90 RF: 2 duloxetine 30 mg capsule,delayed release(DR/EC) 30 mg PO DAILY Qty: 30 RF: 2 hydroxyzine HCl 25 mg tablet 25 mg PO QID PRN (Reason: anxiety/panic attacks) Qty: 120 RF: 2 Flintstones Complete Tablet,Chewable 1 tab PO DAILY@1700 RF: 0 Discharge Orders: Discharge ED (Routine); Ordered 11/14/20 Ordered By: Raissa Fink Referrals: Jonna Brenner DO [Primary Care Provider] - Discharge Diet: Advance as tolerated and Clear Liquid Discharge Activity: Limit activity as instructed Patient Instructions: Gastritis (ED), Urinary Tract Infection in Women (ED), Viral Syndrome (ED), Opioid Safety Activity Restrictions/Additional Instructions: Follow-up with your primary care in 7 to 10 days, repeat urinalysis will be needed to ensure you have cleared infection Use albuterol inhaler, Ventolin HFA as directed by respiratory therapy, use 2 puffs every 4 hours as needed for cough/wheezing/congestion Continue Tylenol and ibuprofen as directed on bottle as needed for pain Avoid greasy fried spicy foods until stomach has improved, take Pepcid 20 mg 20 minutes prior to each meal for 10 days to help with stomach Prescription of Zofran has been provided to help with nausea Coding Level of Care Code ED Wood Carver for Jamel Fwd Exam Comprehensive
[2020-11-14] MEDS: ondansetron 2 mg/ML SDV 2 mL 4 MG IVP (21:27)
[2020-11-14] MEDS: sodium chloride 0.9% 500 ML 999 ML IV (21:27)
[2020-11-14] MEDS: famotidine 20 mg Tablet 40 MG PO (21:27)
[2020-11-14 21:31] VITALS: BP 134/92; PULSE 84; RESP 13
[2020-11-14 21:36] VITALS: O2SAT 97
[2020-11-14 21:45] LABS: Alanine Aminotransferase 21 U/L (0-33); Alkaline Phosphatase 72 IU/L (35-105); Anion Gap 12.6 (5-19); Aspartate Amino Transferase 18 U/L (0-32); Blood Urea Nitrogen 12 mg/dL (6-20); Calcium 9.3 mg/dL (8.5-10.5); Carbon Dioxide 30 mmol/L (22-29); Chloride 99 mmol/L (98-107); Glomerular Filtration Rate 113.1 mL/min (90-130); Glucose 86 mg/dL (65-115); Lipase 31 U/L (13-60); Osmolality Calculated 285 mOsm/kg (285-295); Potassium 3.6 mmol/L (3.5-5.1); Sodium 138 mmol/L (136-145); Total Bilirubin 0.4 mg/dL (0.15-1.2)
[2020-11-14 21:46] LABS: Troponin(5th) Baseline 6 ng/L (0-10)
[2020-11-14 22:12] LABS: Urine Appearance SL Hazy (CLEAR); Urine Color Yellow (Yellow)
[2020-11-14 22:13] LABS: Add Urine Microscopic? YES; Bilirubin Urine Neg (Negative); Blood Urine Neg (Negative); Glucose Urine UA Norm (Normal); Ketones Urine Negative (Negative); Leukocyte Esterase Urine 1+ (Negative); Nitrate Urine Negative (Negative); Protein Urine Neg (Negative); Urobilinogen Urine Norm (Negative); pH Urine 5 (5-7)
[2020-11-14 22:14] LABS: Bacteria Urine 1+ /hpf; RBC Urine 0-4 /hpf (0-2); Squamous Epithelial Cell Urine 15-25 /hpf (0-5); WBC Urine 15-25 /hpf (0-5)
[2020-11-14 22:15] LABS: Add Urine Culture? No
[2020-11-14] MEDS: cefdinir 300 MG CAPSULE PO (22:29)
[2020-11-14] MEDS: ketorolac 30 mg/mL INJ 15 MG IVP (22:30)
[2020-11-14] MEDS: ondansetron 4 MG Tablet PO (22:30)
--- NOTE | 2020-11-14 22:42 | PC.NURSE ---
Pt tolerating PO fluids w/o N/V
--- NOTE | 2020-11-14 22:58 | PC.NURSE ---
repeat EKG done at 2255 and shown to ER CONNIE SCRATCHER.
[2020-11-14 23:05] VITALS: PULSE 87; RESP 18; O2SAT 98
[2020-11-14] MEDS: albuterol 8 gm MDI 2 PUFF INHALATION (23:05)
[2020-11-14 23:25] VITALS: BP 117/78; PULSE 96; RESP 17; TEMP 36.4; O2SAT 99
[2020-11-14 23:33] LABS: Troponin 5 2HR Delta 0 ABS# (0-10)
== END 2020-11-14 23:27 | disposition home or self-care (01) ==
PROVIDERS: Emergency Provider Nurse Practitioner Family; PCP Family Medicine
DX: B34.9 Viral infection, unspecified (principal); N30.00 Acute cystitis without hematuria; K29.00 Acute gastritis without bleeding; Z87.891 Personal history of nicotine dependence
CPT/HCPCS: 12345; 36415; 71045; 80053; 81001; 83690; 84484; 85025; 93005; 94640; 96374; 96375; 99283; 99284; J1885; J2405; J3535; J7040; Q0162

== ENCOUNTER 2020-11-30 16:03 | Emergency (ER) | payer BC, MEDICAID, SELFPAY ==
[2020-11-30 16:09] VITALS: BP 121/75; PULSE 83; RESP 18; TEMP 36.7; O2SAT 99; BMI 43.4
--- NOTE | 2020-11-30 17:58 | W.ED.DIZZY ---
HPI - Dizziness General: Chief Complaint: Dizziness Stated Complaint: JITTERY, DIZZY, UNABLE TO URINATE Time Seen by Provider: 11/30/20 17:57 History of Present Illness: HPI Narrative: Patient is a 35-year-old female comes to the ED with abdominal pain. Past medical history of IV drug use, anxiety disorder, PTSD and acid reflux. Past surgical history of appendectomy and cholecystectomy. Patient says symptoms started today. She started her period yesterday and says she has had heavy bleeding since the start of her period. Later today she started feeling a little lightheaded and dizzy and started developing a headache as well. She describes the headache is mild and its an aching feeling on the top of her head. Her abdominal pain she rates a 7 out of 10 and it is generalized throughout the entire abdomen. Denies any fever, chills, chest pain, nausea/vomiting, diarrhea, constipation, blood in stool, dysuria or hematuria. Associated symptoms: Reports headache(s); Denies chest pain, chills, nausea, nasal congestion, palpitations or vomiting Associated neuro symptoms: Deny numbness in extremities Review of Systems Const: Denies: fever(s), chills or fatigue Eyes: Denies: change in vision or eye discomfort ENMT: Denies: throat pain, odynophagia, nasal discharge or nasal congestion Card: Reports: lightheadedness; Denies: chest pain, palpitations, edema, swelling of feet/ankles, dyspnea on exertion or orthopnea Resp: Denies: dyspnea, productive cough or non-productive cough GI: Reports: abdominal pain; Denies: nausea, vomiting, diarrhea, constipation or hematochezia : Denies: flank pain, dysuria or hematuria Musc: Denies: neck pain, back pain or extremity swelling Skin/Breast: Denies: rash or new lesions Neuro: Reports: headache(s) and dizziness; Denies: numbness in extremities or weakness in extremities PFSH ED PFSH: Medical History Anxiety Depression History of migraine headaches History of seizure Obesity Surgical History History of bilateral tubal ligation (06/04/16) LTF, right salpingectomy. Performed by Dr. Jama at [facility] in [place], [place]. 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 Appendectomy performed by Dr. Cota. History of cholecystectomy (~2011) Laparoscopic. S/P laparoscopic appendectomy (06/04/16) Performed at time of sterilization. Performed by Dr. Cota at [facility] in [place], [place] Family History Family/Other Thyroid disease paternal aunt Breast cancer maternal great aunt Grandmother Thyroid disease paternal Breast cancer maternal Ovarian cancer paternal Diabetes maternal, paternal Grandfather Diabetes maternal, paternal Unknown Hypertension family members in general Social History Smoking and tobacco status: former smoker Quit status (tobacco): has quit using tobacco Year quit tobacco: 2004 Alcohol intake: current Alcohol intake frequency: holidays/special occasions only Female Reproductive History: Date of last menstrual period: 11/30/20 Physical Exam Const: COMMON NORMALS: no acute distress, patient oriented x3 and alert GENERAL APPEARANCE: cooperative and comfortable HENMT: COMMON NORMALS: normocephalic HEAD & SCALP: normocephalic MOUTH: Normal oral and palatal mucosa present THROAT: posterior oropharynx normal and uvula midline Neck/C-Spine: COMMON NORMALS: supple GENERAL: Yes normal visual inspection Resp: COMMON NORMALS: normal respiratory effort, No retractions, No use of accessory muscles and clear to auscultation bilaterally AUSCULTATION: clear to auscultation bilaterally Cardio: COMMON NORMALS: regular rate, regular rhythm, S1 normal heart sound present, S2 normal heart sound present, No gallops present (Cardio), No clicks present (Cardio), No murmurs present (Cardio) and Peripheral pulses 2+ throughout RATE: regular rate RHYTHM: regular rhythm HEART SOUNDS: S1 normal heart sound present and S2 normal heart sound present PERIPHERAL PULSES: Peripheral pulses 2+ throughout GI: COMMON NORMALS: Normal to inspection, nondistended, normoactive bowel sounds present, Soft to palpation and no masses INSPECTION: Yes central obesity PALPATION: Yes Soft to palpation and Yes Tenderness to palpation present (GI) (Mild generalized tenderness throughout her abdomen in all 4 quadrants.) : COMMON NORMALS: Yes no CVA tenderness BLADDER/KIDNEY EXAM: Yes no CVA tenderness Back/Pelvis: COMMON NORMALS: no CVA tenderness Extremity: COMMON NORMALS: normal to inspection Neuro: COMMON NORMALS: patient oriented x3 and moves all extremities SENSORIUM/ORIENTATION: Yes alert Skin: GENERAL SKIN EXAM: dry skin Course Vital Signs: Vital signs: Vital Signs Temperature 98.1 F 11/30/20 16:09 Pulse Rate 74 11/30/20 20:41 Respiratory Rate 16 11/30/20 18:42 Blood Pressure 103/50 11/30/20 20:41 Pulse Oximetry 100 11/30/20 20:41 MDM - Dizziness MDM Narrative: Medical decision making narrative: Patient is a 35-year-old female comes to the ED with abdominal pain. Symptoms started just prior to arrival. Patient also just currently started her period and she says she is having cramping and her bleeding is heavy currently. Patient appears nontoxic and in no acute distress or pain. Her abdomen has mild generalized tenderness throughout. CBC and CMP were unremarkable. hCG negative. Lipase is 43. Patient was concerned about hepatitis C due to IV drug use and hepatitis C was normal. UA was unremarkable. CT of the abdomen showed no acute findings. Patient's symptoms were controlled with IV fluids and morphine. Patient was diagnosed with abdominal pain and discharged home. She is told to follow-up with PCP in 7 to 10 days for reevaluation. Return to ED precautions given. Patient understood and agree with plan. Lab Data: Attestation: I reviewed the patient's lab results. Labs: Lab Results 11/30/20 11/30/20 11/30/20 Range/Units 18:30 18:30 18:30 WBC 6.1 (4.0-10.0) 10^3/ uL RBC 4.54 (4.1-5.3) 10^6/u L Hgb 13.4 (11.5-15.3) g/dL Hct 40.5 (37.0-47.0) % MCV 89.2 (81-99) fL MCH 29.5 (28.0-34.0) pg MCHC 33.1 (30.0-36.0) g/dL RDW 13.6 (12.1-15.1) % Plt Count 278 (130-400) 10^3/c mm MPV 11.7 H (7.4-10.4) fL Neut % (Auto) 61.8 % Lymph % (Auto) 30.7 % Burt % (Auto) 5.3 % Eos % (Auto) 1.8 % Baso % (Auto) 0.2 % Neut # (Auto) 3.74 (1.8-7.7) 10^3/u L Lymph # (Auto) 1.9 (0.8-4.8) 10^3/u L Burt # (Auto) 0.3 (0.2-0.9) 10^3/u L Eos # (Auto) 0.1 (0.0-0.8) 10^3/u L Baso # (Auto) 0.0 (0.0-0.1) 10^3/u L Nucleated RBC % (a uto) 0 % Nucleated RBCs # 0.0 /100WBC Sodium 139 (136-145) mmol/L Potassium 3.7 (3.5-5.1) mmol/L Chloride 102 (98-107) mmol/L Carbon Dioxide 30 H (22-29) mmol/L Anion Gap 10.7 (5-19) BUN 10 (6-20) mg/dL Creatinine 0.8 (0.5-0.9) mg/dL GFR Calculation 80.7 L (90-130) mL/min Glucose 89 (65-115) mg/dL Calculated Osmolal ity 287 (285-295) mOsm/k g Calcium 9.3 (8.5-10.5) mg/dL Total Bilirubin 0.3 (0.15-1.2) mg/dL AST 16 (0-32) U/L ALT 15 (0-33) U/L Alkaline Phosphata se 81 (35-105) IU/L Total Protein 7.6 (6.6-8.7) g/dL Albumin 4.2 (3.5-5.2) g/dL Globulin 3.4 (1.3-4.6) g/dL Lipase 43 (13-60) U/L HCG, Qual Negative (Negative) Urine Color (Yellow) Urine Appearance (CLEAR) Urine pH (5-7) Ur Specific Gravit y (1.005-1.030) Urine Protein (Negative) Urine Glucose (UA) (Normal) Urine Ketones (Negative) Urine Blood (Negative) Urine Nitrate (Negative) Urine Bilirubin (Negative) Prot Sulfosalicyli c Acd (Negative) Urine Urobilinogen (Negative) mg/dL Ur Leukocyte Zeina ase (Negative) Urine RBC (0-2) /hpf Urine WBC (0-5) /hpf Ur Squamous Epith Cells (0-5) /hpf Amorphous Sediment Urine Bacteria (NONE) /hpf Hepatitis A IgM Ab (Nonreactive) Hep Bs Antigen (Nonreactive) Hep Bs Antibody (0-8.5) Hep B Core Total A b (Nonreactive) Hepatitis C Antibo dy (Nonreactive) 11/30/20 11/30/20 Range/Units 18:30 18:40 WBC (4.0-10.0) 10^3/ uL RBC (4.1-5.3) 10^6/u L Hgb (11.5-15.3) g/dL Hct (37.0-47.0) % MCV (81-99) fL MCH (28.0-34.0) pg MCHC (30.0-36.0) g/dL RDW (12.1-15.1) % Plt Count (130-400) 10^3/c mm MPV (7.4-10.4) fL Neut % (Auto) % Lymph % (Auto) % Burt % (Auto) % Eos % (Auto) % Baso % (Auto) % Neut # (Auto) (1.8-7.7) 10^3/u L Lymph # (Auto) (0.8-4.8) 10^3/u L Burt # (Auto) (0.2-0.9) 10^3/u L Eos # (Auto) (0.0-0.8) 10^3/u L Baso # (Auto) (0.0-0.1) 10^3/u L Nucleated RBC % (a uto) % Nucleated RBCs # /100WBC Sodium (136-145) mmol/L Potassium (3.5-5.1) mmol/L Chloride (98-107) mmol/L Carbon Dioxide (22-29) mmol/L Anion Gap (5-19) BUN (6-20) mg/dL Creatinine (0.5-0.9) mg/dL GFR Calculation (90-130) mL/min Glucose (65-115) mg/dL Calculated Osmolal ity (285-295) mOsm/k g Calcium (8.5-10.5) mg/dL Total Bilirubin (0.15-1.2) mg/dL AST (0-32) U/L ALT (0-33) U/L Alkaline Phosphata se (35-105) IU/L Total Protein (6.6-8.7) g/dL Albumin (3.5-5.2) g/dL Globulin (1.3-4.6) g/dL Lipase (13-60) U/L HCG, Qual (Negative) Urine Color Yellow (Yellow) Urine Appearance Clear (CLEAR) Urine pH 8 H (5-7) Ur Specific Gravit y 1.010 (1.005-1.030) Urine Protein Neg (Negative) Urine Glucose (UA) Norm (Normal) Urine Ketones Negative (Negative) Urine Blood 3+ H (Negative) Urine Nitrate Negative (Negative) Urine Bilirubin Neg (Negative) Prot Sulfosalicyli c Acd Negative (Negative) Urine Urobilinogen Norm (Negative) mg/dL Ur Leukocyte Zeina ase Negative (Negative) Urine RBC 40-50 H (0-2) /hpf Urine WBC 0-4 H (0-5) /hpf Ur Squamous Epith Cells 0-4 H (0-5) /hpf Amorphous Sediment Not Reportable Urine Bacteria Trace (NONE) /hpf Hepatitis A IgM Ab Non-reactive (Nonreactive) Hep Bs Antigen Non-reactive (Nonreactive) Hep Bs Antibody 3.5 (0-8.5) Hep B Core Total A b Non-reactive (Nonreactive) Hepatitis C Antibo dy Non-reactive (Nonreactive) Imaging Data^: CT Abd/Pel: Attestation: I personally reviewed and interpreted this imaging study as follows: Radiologist's impression: [address] [address] [address] Scan Report Signed Patient: Payton Galloway Rachel Unit #: [id number] : 1985 Age/Sex: 35 / F ADM Date: 11/30/20 Loc: ER Room/Bed: Attending Dr: Ordering Provider/Ordering MD: Chris Addison Date of Service: 11/30/20 Procedure(s): CT abdomen pelvis w con* [id number] Accession Number(s): [id number] Report Number: [id number] PROCEDURE INFORMATION: Exam: CT Abdomen And Pelvis With Contrast Exam date and time: 11/30/2020 7:35 PM Age: 35 years old Clinical indication: Abdominal pain; Generalized; Prior surgery; Surgery date: 6+ months; Surgery type: Gb, appy, tubal; Patient HX: C/O abd/back pain w heavier than usual period TECHNIQUE: Imaging protocol: Computed tomography of the abdomen and pelvis with contrast. Radiation optimization: All CT scans at this facility use at least one of these dose optimization techniques: automated exposure control; mA and/or kV adjustment per patient size (includes targeted exams where dose is matched to clinical indication); or iterative reconstruction. Contrast material: OMNI 300; Contrast volume: 95 ml; Contrast route: INTRAVENOUS (IV); COMPARISON: OB Limited [id number] 03/24/2016 12:08 PM RADIATION DOSE METRICS: Total DLP (mGy-cm): 1610.17 FINDINGS: Liver: Normal. No mass. Gallbladder and bile ducts: Cholecystectomy. Nondilated biliary system. Pancreas: Normal. No ductal dilation. Spleen: Normal. No splenomegaly. Adrenal glands: Normal. No mass. Kidneys and ureters: Normal. No hydronephrosis. Stomach and bowel: No inflammatory wall thickening of the bowel. No evidence of bowel obstruction or perforation. Moderate fecal volume. Appendix: Appendectomy. Intraperitoneal space: No intraperitoneal fluid collection. Vasculature: Unremarkable. No abdominal aortic aneurysm. Lymph nodes: Unremarkable. No enlarged lymph nodes. Urinary bladder: Unremarkable as visualized. Reproductive: Unremarkable as visualized. Bones/joints: Unremarkable. No acute fracture. Soft tissues: Unremarkable. CT/CT abdomen pelvis w con* [id number] IMPRESSION: No acute pathology in the abdomen or pelvis identified. Radiation Dose CTDIVOL = (mGy): DLP = 1610.17 (mGy-cm) Dictated By: Polo English Signed By: Polo English Signed Date/Time: 11/30/202003 DD/ 01 Discharge Plan Discharge Patient Disposition: Home Clinical Impression: Abdominal pain Qualifiers: Abdominal location: generalized Qualified Code(s): R10.84 - Generalized abdominal pain Condition: Stable Prescriptions: No Action buspirone 5 mg tablet 5 mg PO TID Qty: 90 RF: 2 multivitamin Tablet 1 tab PO DAILY RF: 0 ibuprofen 200 mg Tablet 400 mg PO PRN RF: 0 ProAir HFA 90 mcg/actuation Hfa Aerosol Inhaler 2 puff INHALATION Q4H PRN (Reason: Shortness Of Breath) RF: 0 Zofran 4 mg tablet 4 mg PO Q4H PRN (Reason: Nausea And Vomiting) RF: 0 Pepcid 20 mg tablet 20 mg PO BID PRN (Reason: Acid Reflux) RF: 0 duloxetine 30 mg capsule,delayed release(DR/EC) 30 mg PO QAM RF: 0 hydroxyzine HCl 25 mg tablet See Rx Instructions .ROUTE .COMPLEX RF: 0 Discharge Orders: Discharge ED (Routine); Ordered 11/30/20 Ordered By: Chris Addison Referrals: Jonna Brenner DO [Primary Care Provider] - Discharge Diet: Advance as tolerated Discharge Activity: Resume usual activity Patient Instructions: Abdominal Pain (ED) Activity Restrictions/Additional Instructions: Follow-up with medical provider as directed in 7 to 10 days for reevaluation. Continue taking all home medications as prescribed. Advance diet as tolerated and start with clear liquids. Return to the ER or your medical provider if condition worsens. Please read and understand discharge instructions. If any questions, please ask. 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
[2020-11-30 18:36] VITALS: BP 128/72; PULSE 75; O2SAT 100
[2020-11-30 18:42] VITALS: RESP 16; O2SAT 96
[2020-11-30] MEDS: sodium chloride 0.9% 1,000 ML 999 ML IV (18:42)
[2020-11-30] MEDS: ondansetron 2 mg/ML SDV 2 mL 4 MG IVP (18:42)
[2020-11-30] MEDS: morphine 4 mg/mL SDV 1 mL IVP (18:42)
[2020-11-30 18:49] LABS: Basophils % 0.2 %; Eosinophils # 0.1 10^3/uL (0.0-0.8); Eosinophils % 1.8 %; Hematocrit 40.5 % (37.0-47.0); Hemoglobin 13.4 g/dL (11.5-15.3); Lymphocytes # 1.9 10^3/uL (0.8-4.8); Lymphocytes % 30.7 %; Mean Corpuscular HGB Conc 33.1 g/dL (30.0-36.0); Mean Corpuscular Hemoglobin 29.5 pg (28.0-34.0); Mean Corpuscular Volume 89.2 fL (81-99); Mean Platelet Volume 11.7 fL (7.4-10.4); Monocytes # 0.3 10^3/uL (0.2-0.9); Monocytes % 5.3 %; Neutrophils # 3.74 10^3/uL (1.8-7.7); Neutrophils % 61.8 %; Nucleated Red Blood Cells % 0 %; Platelet Count 278 10^3/cmm (130-400); Red Blood Count 4.54 10^6/uL (4.1-5.3); Red Cell Distribution Width 13.6 % (12.1-15.1); White Blood Count 6.1 10^3/uL (4.0-10.0)
[2020-11-30 18:56] LABS: HCG, Serum Qual Negative (Negative)
[2020-11-30 19:09] LABS: Alanine Aminotransferase 15 U/L (0-33); Albumin Level 4.2 g/dL (3.5-5.2); Alkaline Phosphatase 81 IU/L (35-105); Anion Gap 10.7 (5-19); Aspartate Amino Transferase 16 U/L (0-32); Blood Urea Nitrogen 10 mg/dL (6-20); Calcium 9.3 mg/dL (8.5-10.5); Carbon Dioxide 30 mmol/L (22-29); Chloride 102 mmol/L (98-107); Globulin 3.4 g/dL (1.3-4.6); Glomerular Filtration Rate 80.7 mL/min (90-130); Glucose 89 mg/dL (65-115); Lipase 43 U/L (13-60); Osmolality Calculated 287 mOsm/kg (285-295); Potassium 3.7 mmol/L (3.5-5.1); Sodium 139 mmol/L (136-145); Total Bilirubin 0.3 mg/dL (0.15-1.2); Total Protein 7.6 g/dL (6.6-8.7)
[2020-11-30 19:24] LABS: Hepatitis A Antibody IgM Non-Reactive (Nonreactive); Hepatitis B Core AB, Total Non-Reactive (Nonreactive); Hepatitis B Surface AB 3.5 (0-8.5); Hepatitis B Surface Antigen Non-Reactive (Nonreactive); Hepatitis C Virus Antibody Non-Reactive (Nonreactive)
[2020-11-30 19:28] LABS: Bilirubin Urine Neg (Negative); Blood Urine 3+ (Negative); Glucose Urine UA Norm (Normal); Ketones Urine Negative (Negative); Leukocyte Esterase Urine Negative (Negative); Nitrate Urine Negative (Negative); Protein Urine Neg (Negative); Sulfosalicylic Acid Urine Negative (Negative); Urine Appearance Clear (CLEAR); Urine Color Yellow (Yellow); Urobilinogen Urine Norm (Negative); pH Urine 8 (5-7)
--- NOTE | 2020-11-30 19:30 | CTR_ITS ---
PROCEDURE INFORMATION: Exam: CT Abdomen And Pelvis With Contrast Exam date and time: 11/30/2020 7:35 PM Age: 35 years old Clinical indication: Abdominal pain; Generalized; Prior surgery; Surgery date: 6+ months; Surgery type: Gb, appy, tubal; Patient HX: C/O abd/back pain w heavier than usual period TECHNIQUE: Imaging protocol: Computed tomography of the abdomen and pelvis with contrast. Radiation optimization: All CT scans at this facility use at least one of these dose optimization techniques: automated exposure control; mA and/or kV adjustment per patient size (includes targeted exams where dose is matched to clinical indication); or iterative reconstruction. Contrast material: OMNI 300; Contrast volume: 95 ml; Contrast route: INTRAVENOUS (IV); COMPARISON: OB Limited [id number] 03/24/2016 12:08 PM RADIATION DOSE METRICS: Total DLP (mGy-cm): 1610.17 FINDINGS: Liver: Normal. No mass. Gallbladder and bile ducts: Cholecystectomy. Nondilated biliary system. Pancreas: Normal. No ductal dilation. Spleen: Normal. No splenomegaly. Adrenal glands: Normal. No mass. Kidneys and ureters: Normal. No hydronephrosis. Stomach and bowel: No inflammatory wall thickening of the bowel. No evidence of bowel obstruction or perforation. Moderate fecal volume. Appendix: Appendectomy. Intraperitoneal space: No intraperitoneal fluid collection. Vasculature: Unremarkable. No abdominal aortic aneurysm. Lymph nodes: Unremarkable. No enlarged lymph nodes. Urinary bladder: Unremarkable as visualized. Reproductive: Unremarkable as visualized. Bones/joints: Unremarkable. No acute fracture. Soft tissues: Unremarkable. CT/CT abdomen pelvis w con* [id number] IMPRESSION: No acute pathology in the abdomen or pelvis identified. Radiation Dose CTDIVOL = (mGy): DLP = 1610.17 (mGy-cm)
[2020-11-30 19:32] VITALS: BP 108/64; PULSE 78; O2SAT 99
[2020-11-30] MEDS: iohexol 300 mg/mL 100 mL Btl IV (19:48)
[2020-11-30 19:55] LABS: Add Urine Culture? Yes; Bacteria Urine TRACE /hpf; RBC Urine 40-50 /hpf (0-2); Squamous Epithelial Cell Urine 0-4 /hpf (0-5); WBC Urine 0-4 /hpf (0-5)
[2020-11-30 20:25] VITALS: BP 103/50; PULSE 68; O2SAT 99
[2020-11-30 20:41] VITALS: BP 103/50; PULSE 74; O2SAT 100
== END 2020-11-30 20:46 | disposition home or self-care (01) ==
PROVIDERS: Nurse Practitioner Family; Emergency Provider Physician Assistant; PCP Family Medicine
DX: R10.84 Generalized abdominal pain (principal); Z87.891 Personal history of nicotine dependence
CPT/HCPCS: 74177; 80053; 81001; 83690; 84703; 85025; 86705; 86706; 86709; 86803; 87077; 87086; 87186; 87340; 96361; 96374; 96375; 99283; J2270; J2405; J7030; Q9967

== ENCOUNTER → 2020-12-04 12:13 | Outpatient (BNVA) | payer BC, MEDICAID, SELFPAY | PROVIDERS: PCP Family Medicine; Visit Provider Psychiatry & Neurology Psychiatry | DX: F41.1 Generalized anxiety disorder (principal); F41.0 Panic disorder [episodic paroxysmal anxiety]; F43.12 Post-traumatic stress disorder, chronic | CPT/HCPCS: 99214 ==

== ENCOUNTER 2020-12-07 15:25 | Emergency (ER) | payer BC, MEDICAID, SELFPAY ==
[2020-12-07 15:28] VITALS: BP 117/81; PULSE 78; RESP 18; TEMP 37.1; O2SAT 100; BMI 43.0
--- NOTE | 2020-12-07 16:05 | ECG_ITS ---
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 Measurements Intervals [place] Rate: 79 P: 21 IN: 171 QRS: 15 QRSD: 77 T: 25 QT: 367 QTc: 422 Interpretive Statements SINUS RHYTHM POSSIBLE ANTERIOR MYOCARDIAL INFARCTION [30 ms Q WAVE IN V3/V4, OR R < 0.2 mV IN V4], OF INDETERMINATE AGE Compared to ECG 11/14/2020 22:53:39 Myocardial infarct finding now present Electronically Signed On 12-07-2020 18:22:59 UPTWISTER TENDER by Eyad Aly M.D. [id number] f
--- NOTE | 2020-12-07 16:05 | XRR_ITS ---
PROCEDURE INFORMATION: Exam: XR Chest Exam date and time: 12/07/2020 4:13 PM Age: 35 years old Clinical indication: Cough and shortness of breath; Additional info: Chest pain/pressure, SOB TECHNIQUE: Imaging protocol: XR of the chest Views: 2 views. COMPARISON: CR XR chest 1V portable [id number] 11/14/2020 9:16 PM FINDINGS: Lungs: Unremarkable. No consolidation. Pleural spaces: Unremarkable. No pleural effusion. No pneumothorax. Heart/Mediastinum: Unremarkable. No cardiomegaly. Bones/joints: Unremarkable. XR/XR chest 2V* [id number] IMPRESSION: No acute findings.
--- NOTE | 2020-12-07 16:07 | W.ED.CHESTPA ---
HPI - Chest Pain General: Chief Complaint: Chest Pain Stated Complaint: chest pressure, cough Time Seen by Provider: 12/07/20 15:40 Source: patient Mode of arrival: ambulatory Limitations: no limitations History of Present Illness: HPI narrative: Patient has been feeling unwell for a couple of weeks and with a cough, nasal congestion, head pressure, chest pressure. She has seen a primary care provider and was started on azithromycin for an otitis media. She states that she is not any better and would like to be seen. She has chest pressure that she sees feels like someone is sitting on her chest. complaint: chest pain and chest heaviness Pertinent past history: asthma Onset (ago): week(s) (1) Timing of current episode: constant Onset: during rest Pain radiation: none Severity: moderate Quality: heaviness Relieving factors: nothing Exacerbating factors: nothing Associated symptoms: Reports dyspnea; Deny abdominal pain, diaphoresis, fever(s), leg edema, nausea, palpitations, sense of impending doom, syncope or vomiting Treatment prior to arrival: none Review of Systems General: Reports: 10 or more systems reviewed and unremarkable except in HPI and below Const: Denies: fever(s) or diaphoresis Eyes: Denies: change in vision or blurry vision ENMT: Reports: nasal congestion, post nasal drip and sinus pain; Denies: throat pain, enlarged tonsils, odynophagia, hoarseness, mouth pain or swelling of lips/tongue Card: Denies: palpitations or syncope Resp: Reports: dyspnea GI: Denies: abdominal pain, nausea or vomiting : Denies: flank pain, difficulty voiding, dysuria, urinary frequency, urinary urgency or urinary hesitancy Musc: Denies: neck pain, back pain or extremity swelling Skin/Breast: Denies: rash, pruritus or erythema Neuro: Denies: headache(s), numbness in extremities or weakness in extremities Endo: Denies: polyuria, polydipsia or tired all the time [facility] ED PFSH: Medical History (Updated 12/07/20 @ 17:48 by Adrianne Mejia MD, [facility] [place]) Anxiety Depression History of migraine headaches History of seizure Obesity Surgical History History of bilateral tubal ligation (06/04/16) LTF, right salpingectomy. Performed by Dr. Jama at [facility] in [place], [place]. 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 Appendectomy performed by Dr. Cota. History of cholecystectomy (~2011) Laparoscopic. S/P laparoscopic appendectomy (06/04/16) Performed at time of sterilization. Performed by Dr. Cota at [facility] in [place], [place] Family History Family/Other Thyroid disease paternal aunt Breast cancer maternal great aunt Grandmother Thyroid disease paternal Breast cancer maternal Ovarian cancer paternal Diabetes maternal, paternal Grandfather Diabetes maternal, paternal Unknown Hypertension family members in general Social History Smoking and tobacco status: former smoker Quit status (tobacco): has quit using tobacco Year quit tobacco: 2004 Alcohol intake: current Alcohol intake frequency: holidays/special occasions only Female Reproductive History: Date of last menstrual period: 11/30/20 Physical Exam Const: COMMON NORMALS: no acute distress, average body habitus, patient oriented x3, no limitations, healthy appearing, alert and well nourished HENMT: COMMON NORMALS: normocephalic, atraumatic and moist oral mucous membranes HEAD & SCALP: normocephalic and atraumatic FACE & SINUS: sinus tenderness frontal and maxillary TYMPANIC MEMBRANE: TM abnormal TM laterality: bilateral with fluid behind the TM; not bulging and not bullous Neck/C-Spine: COMMON NORMALS: no meningeal signs and no JVD Resp: COMMON NORMALS: normal respiratory effort, No retractions, No use of accessory muscles, clear to auscultation bilaterally and percussion normal AUSCULTATION: clear to auscultation bilaterally PERCUSSION: percussion normal Cardio: COMMON NORMALS: no JVD, regular rate, regular rhythm, S1 normal heart sound present, S2 normal heart sound present, No gallops present (Cardio), No clicks present (Cardio), No murmurs present (Cardio), No rub (Cardio) and Peripheral pulses 2+ throughout RATE: regular rate RHYTHM: regular rhythm HEART SOUNDS: S1 normal heart sound present and S2 normal heart sound present PERIPHERAL PULSES: Peripheral pulses 2+ throughout GI: COMMON NORMALS: Normal to inspection, nondistended, normoactive bowel sounds present, Soft to palpation, non-tender, No hepatosplenomegaly present, no masses and no bruits PALPATION: Yes Soft to palpation and Yes No hepatosplenomegaly present Extremity: COMMON NORMALS: normal to inspection, full ROM, capillary refill normal, no calf tenderness and no pedal edema Neuro: COMMON NORMALS: patient oriented x3 SENSORIUM/ORIENTATION: Yes alert MENINGEAL SIGNS: Yes no meningeal signs Skin: COMMON NORMALS: no rashes or lesions noted, no wounds, turgor normal, no jaundice, no petechiae and no mottling GENERAL SKIN EXAM: no rashes or lesions noted and turgor normal Course Reevaluation(s): Reevaluation #1: Discussed her lab and imaging findings with her. Unremarkable. Chest pain is likely due to cough which is secondary to the postnasal drainage that has from the allergic rhinitis and sinusitis. We will discharge her home with a prescription for doxycycline, Claritin-D, and Flonase. She voiced understanding and is in agreement with the plan. Time: 17:46 Vital Signs: Vital signs: Vital Signs Temperature 98.7 F 12/07/20 15:28 Pulse Rate 78 12/07/20 15:28 Respiratory Rate 18 12/07/20 15:28 Blood Pressure 117/81 12/07/20 15:28 Pulse Oximetry 100 12/07/20 15:28 MDM - Chest Pain MDM Narrative: Medical decision making narrative: 35-year-old female patient who presents to the emergency department with symptoms consistent with allergic rhinitis and pansinusitis. She is discharged home with a prescription for doxycycline, Claritin-D, Flonase. She will follow-up with her primary care provider. Medical Records: Attestation: I reviewed the patient's medical records. Lab Data: Attestation: I reviewed the patient's lab results. Labs: Lab Results 12/07/20 12/07/20 12/07/20 Range/Units 16:44 16:44 16:44 WBC 6.2 (4.0-10.0) 10^3/ uL RBC 4.49 (4.1-5.3) 10^6/u L Hgb 13.1 (11.5-15.3) g/dL Hct 40.4 (37.0-47.0) % MCV 90.0 (81-99) fL MCH 29.2 (28.0-34.0) pg MCHC 32.4 (30.0-36.0) g/dL RDW 13.4 (12.1-15.1) % Plt Count 279 (130-400) 10^3/c mm MPV 11.4 H (7.4-10.4) fL Neut % (Auto) 58.4 % Lymph % (Auto) 33.7 % [place] % (Auto) 5.4 % Eos % (Auto) 1.9 % Baso % (Auto) 0.3 % Neut # (Auto) 3.64 (1.8-7.7) 10^3/u L Lymph # (Auto) 2.1 (0.8-4.8) 10^3/u L [place] # (Auto) 0.3 (0.2-0.9) 10^3/u L Eos # (Auto) 0.1 (0.0-0.8) 10^3/u L Baso # (Auto) 0.0 (0.0-0.1) 10^3/u L Nucleated RBC % (a uto) 0 % Nucleated RBCs # 0.0 /100WBC Sodium 139 (136-145) mmol/L Potassium 3.6 (3.5-5.1) mmol/L Chloride 100 (98-107) mmol/L Carbon Dioxide 29 (22-29) mmol/L Anion Gap 13.6 (5-19) BUN 12 (6-20) mg/dL Creatinine 0.8 (0.5-0.9) mg/dL GFR Calculation 80.7 L (90-130) mL/min Glucose 77 (65-115) mg/dL Calculated Osmolal ity 287 (285-295) mOsm/k g Calcium 9.0 (8.5-10.5) mg/dL Total Bilirubin 0.3 (0.15-1.2) mg/dL AST 16 (0-32) U/L ALT 16 (0-33) U/L Alkaline Phosphata se 83 (35-105) IU/L Troponin T Baselin e 6 (0-10) ng/L NT-Pro-B Natriuret Pep 75 (0-125) pg/mL Total Protein 7.5 (6.6-8.7) g/dL Albumin 4.1 (3.5-5.2) g/dL Globulin 3.4 (1.3-4.6) g/dL Lipase 52 (13-60) U/L Imaging Data^: CXR: Attestation: I personally reviewed and interpreted this imaging study as follows: My impression: No acute findings. No infiltrates noted. Discharge Plan Discharge Patient Disposition: Home Clinical Impression: Non-cardiac chest pain Acute pansinusitis Qualifiers: Recurrence: non-recurrent Qualified Code(s): J01.40 - Acute pansinusitis, unspecified Allergic rhinitis Qualifiers: Allergic rhinitis trigger: unspecified Allergic rhinitis seasonality: unspecified Qualified Code(s): J30.9 - Allergic rhinitis, unspecified Condition: Stable Prescriptions: New Claritin-D 12 Hour 5-120 mg tablet extended release 12 hr 1 tab PO BID Qty: 6 RF: 0 Flonase Allergy Relief 50 mcg/actuation spray,suspension 2 spray intranasal DAILY Qty: 16 RF: 0 doxycycline monohydrate 100 mg capsule 100 mg PO BID 7 Days Qty: 14 RF: 0 Continued duloxetine 20 mg capsule,delayed release(DR/EC) 20 mg PO DAILY Qty: 30 RF: 2 azithromycin 250 mg tablet See Rx Instructions PO .COMPLEX 5 Days Qty: 6 RF: 0 multivitamin Tablet 1 tab PO DAILY RF: 0 ibuprofen 200 mg Tablet 400 mg PO Q6H PRN (Reason: Pain) RF: 0 albuterol sulfate [ProAir HFA] 90 mcg/actuation Hfa Aerosol Inhaler 2 puff INHALATION Q4H PRN (Reason: Shortness Of Breath) RF: 0 famotidine [Pepcid] 20 mg tablet 20 mg PO BID PRN (Reason: Acid Reflux) RF: 0 hydroxyzine HCl 25 mg tablet See Rx Instructions .ROUTE .COMPLEX RF: 0 Discharge Orders: Discharge ED (Routine); Ordered 12/07/20 Ordered By: Adrianne Mejia Referrals: Jonna Brenner DO [Primary Care Provider] - 1-3 days Discharge Diet: Usual diet Discharge Activity: Increase activity as tolerated Patient Instructions: Sinusitis (ED), Allergic Rhinitis (ED), Noncardiac Chest Pain (ED) Activity Restrictions/Additional Instructions: Return for any new or worsening symptoms. Follow-up with your primary care provider within 3 days. Take the medications as prescribed. Coding Level of Care Code ED Medical Records Administrator for Chg Fwd Exam Comprehensive
[2020-12-07 16:52] LABS: Basophils % 0.3 %; Eosinophils # 0.1 10^3/uL (0.0-0.8); Eosinophils % 1.9 %; Hematocrit 40.4 % (37.0-47.0); Hemoglobin 13.1 g/dL (11.5-15.3); Lymphocytes # 2.1 10^3/uL (0.8-4.8); Lymphocytes % 33.7 %; Mean Corpuscular HGB Conc 32.4 g/dL (30.0-36.0); Mean Corpuscular Hemoglobin 29.2 pg (28.0-34.0); Mean Platelet Volume 11.4 fL (7.4-10.4); Monocytes # 0.3 10^3/uL (0.2-0.9); Monocytes % 5.4 %; Neutrophils # 3.64 10^3/uL (1.8-7.7); Neutrophils % 58.4 %; Nucleated Red Blood Cells % 0 %; Platelet Count 279 10^3/cmm (130-400); Red Blood Count 4.49 10^6/uL (4.1-5.3); Red Cell Distribution Width 13.4 % (12.1-15.1); White Blood Count 6.2 10^3/uL (4.0-10.0)
[2020-12-07 17:17] LABS: Troponin(5th) Baseline 6 ng/L (0-10)
[2020-12-07 17:23] LABS: Alanine Aminotransferase 16 U/L (0-33); Albumin Level 4.1 g/dL (3.5-5.2); Alkaline Phosphatase 83 IU/L (35-105); Anion Gap 13.6 (5-19); Aspartate Amino Transferase 16 U/L (0-32); Blood Urea Nitrogen 12 mg/dL (6-20); Carbon Dioxide 29 mmol/L (22-29); Chloride 100 mmol/L (98-107); Globulin 3.4 g/dL (1.3-4.6); Glomerular Filtration Rate 80.7 mL/min (90-130); Glucose 77 mg/dL (65-115); Lipase 52 U/L (13-60); NT Pro B Type Natriuretic Pept 75 pg/mL (0-125); Osmolality Calculated 287 mOsm/kg (285-295); Potassium 3.6 mmol/L (3.5-5.1); Sodium 139 mmol/L (136-145); Total Bilirubin 0.3 mg/dL (0.15-1.2); Total Protein 7.5 g/dL (6.6-8.7)
[2020-12-07 18:03] VITALS: BP 114/77; RESP 16
== END 2020-12-07 18:04 | disposition home or self-care (01) ==
PROVIDERS: Emergency Provider Family Medicine; PCP Family Medicine
DX: R07.89 Other chest pain (principal); J01.40 Acute pansinusitis, unspecified; J30.9 Allergic rhinitis, unspecified; Z87.891 Personal history of nicotine dependence
CPT/HCPCS: 36415; 71046; 80053; 83690; 83880; 84484; 85025; 93005; 99283

== ENCOUNTER 2020-12-12 13:38 | Outpatient (CLI) | payer BC, MEDICAID, SELFPAY ==
--- NOTE | 2020-12-12 13:42 | XR_ITS ---
WS: [id number] CERVICAL SPINE 3 VIEWS HISTORY: chronic neck pain COMPARISON: None available. Mild LEFT curvature cervical spine. Mild posterior straightening. Less than 2 mm anterolisthesis of C 5. Disc spaces and vertebral body heights are well-preserved. Lateral masses are aligned and the odontoid is intact. Soft tissues are normal. XR/XR cervical spine 3V* [id number] IMPRESSION: Mild straightening and LEFT curvature cervical spine may be due to spasm. No fracture.
== END 2020-12-12 13:39 | disposition home or self-care (01) ==
LOC: RADWPI 13:41
PROVIDERS: PCP Family Medicine; Visit Provider Family Medicine
DX: M54.2 Cervicalgia (principal); G89.29 Other chronic pain
CPT/HCPCS: 72040

== ENCOUNTER 2020-12-17 12:41 | Emergency (ER) | payer BC, MEDICAID, SELFPAY ==
[2020-12-17 12:43] VITALS: BP 111/81; PULSE 103; RESP 18; TEMP 36.7; O2SAT 99; BMI 43.6
[2020-12-17] MEDS: sodium chloride 0.9% 1,000 ML 999 ML IV (13:55)
[2020-12-17] MEDS: ondansetron 2 mg/ML SDV 2 mL 4 MG IVP (13:55)
[2020-12-17] MEDS: ketorolac 30 mg/mL INJ 15 MG IVP (13:56)
[2020-12-17 14:07] LABS: Basophils % 0.3 %; Eosinophils # 0.1 10^3/uL (0.0-0.8); Eosinophils % 1.2 %; Hematocrit 39.9 % (37.0-47.0); Hemoglobin 13.1 g/dL (11.5-15.3); Lymphocytes # 2.1 10^3/uL (0.8-4.8); Lymphocytes % 27.9 %; Mean Corpuscular HGB Conc 32.8 g/dL (30.0-36.0); Mean Corpuscular Hemoglobin 29.4 pg (28.0-34.0); Mean Corpuscular Volume 89.5 fL (81-99); Mean Platelet Volume 11.9 fL (7.4-10.4); Monocytes # 0.5 10^3/uL (0.2-0.9); Monocytes % 6.7 %; Neutrophils # 4.81 10^3/uL (1.8-7.7); Neutrophils % 63.5 %; Nucleated Red Blood Cells % 0 %; Platelet Count 279 10^3/cmm (130-400); Red Blood Count 4.46 10^6/uL (4.1-5.3); Red Cell Distribution Width 13.5 % (12.1-15.1); White Blood Count 7.6 10^3/uL (4.0-10.0)
[2020-12-17 14:31] LABS: HCG, Serum Qual Negative (Negative)
--- NOTE | 2020-12-17 14:31 | ED_ITS ---
HPI - Abdominal Pain General: Chief Complaint: Abdominal Pain Stated Complaint: ABD PAIN, N/V Time Seen by Provider: 12/17/20 13:18 History of Present Illness: HPI narrative: The patient is a 35-year-old female who comes to the ER complaining of diffuse abdominal pain after she eats for the past few days. She says she feels nauseous and bloated. Does not vomit or diarrhea. Also says she feels dizzy during these episodes and started noticing she felt that way during a car ride after she ate. MD elicited complaint: abdominal pain Pain Consistency: intermittent Location: None Severity: mild Quality: cramping Exacerbating factors: eating Relieving factors: nothing Associated Symptoms: Reports no associated symptoms and nausea; Denies GI cramping, diarrhea and vomiting Related Data: Date of Last Menstrual Period: 11/30/20 Review of Systems General: Reports: 10 or more systems reviewed and unremarkable except in HPI and below Const: Denies: fatigue Eyes: Denies: change in vision, blurry vision or eye redness ENMT: Denies: throat pain, swelling of lips/tongue, ear or mastoid pain or nasal congestion Card: Denies: chest pain, palpitations, irregular heart rhythm, edema, dyspnea on exertion or orthopnea Resp: Denies: dyspnea, productive cough or non-productive cough GI: Reports: abdominal pain and nausea; Denies: vomiting, diarrhea or GI cramping : Denies: flank pain, difficulty voiding, urinary frequency or urinary urgency Musc: Denies: neck pain, back pain, extremity pain, joint pain, joint redness, limited range of motion or muscle weakness Skin/Breast: Denies: rash, pruritus, erythema, skin pain or skin tenderness Neuro: Denies: headache(s), numbness in extremities, weakness in extremities, sensory changes, difficulty walking, dizziness, confusion or Slurred speech present Psych: Denies: anxiety or depression Endo: Denies: polyuria All/Imm: Denies: urticaria, throat swelling or tongue swelling [facility] ED PFSH: Medical History (Updated 12/17/20 @ 16:08 by Carlito Guido MD) Anxiety Depression History of migraine headaches History of seizure Obesity Surgical History History of bilateral tubal ligation (06/04/16) LTF, right salpingectomy. Performed by Dr. Jama at [facility] in [place], [place]. 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 Appendectomy performed by Dr. Cota. History of cholecystectomy (~2011) Laparoscopic. S/P laparoscopic appendectomy (06/04/16) Performed at time of sterilization. Performed by Dr. Cota at [facility] in [place], [place] Family History Family/Other Thyroid disease paternal aunt Breast cancer maternal great aunt Grandmother Thyroid disease paternal Breast cancer maternal Ovarian cancer paternal Diabetes maternal, paternal Grandfather Diabetes maternal, paternal Unknown Hypertension family members in general Social History Smoking and tobacco status: former smoker Quit status (tobacco): has quit using tobacco Year quit tobacco: 2004 Alcohol intake: current Alcohol intake frequency: holidays/special occasions only Female Reproductive History: Date of last menstrual period: 11/30/20 Physical Exam Const: COMMON NORMALS: no acute distress, average body habitus, patient oriented x3, no limitations, healthy appearing, alert and well nourished GENERAL APPEARANCE: cooperative, comfortable, well kempt and well developed ORIENTATION/CONSCIOUSNESS: Yes awake, Yes oriented to person, Yes oriented to place and Yes oriented to time HENMT: COMMON NORMALS: normocephalic, external ears normal and Normal external nose present HEAD & SCALP: normal to inspection and normocephalic NOSE: Normal external nose present EXTERNAL EAR: Yes external ears normal MOUTH: Normal oral and palatal mucosa present THROAT: posterior oropharynx normal Eye: COMMON NORMALS: Equal, round and reactive pupils present and EOMs intact bilaterally GENERAL EYE: appearance normal, both eyes and all related structures PUPIL: Yes Equal, round and reactive pupils present Neck/C-Spine: COMMON NORMALS: full ROM, no lymphadenopathy, no meningeal signs and no JVD GENERAL: Yes normal visual inspection Lymph: LYMPHATIC: no lymphadenopathy noted Chest: COMMONS NORMALS: normal inspection of the chest and normal palpation of entire chest wall Resp: COMMON NORMALS: normal respiratory effort, No retractions, No use of accessory muscles, clear to auscultation bilaterally and percussion normal EFFORT & INSPECTION: Yes able to speak in complete sentences AUSCULTATION: clear to auscultation bilaterally PERCUSSION: percussion normal Cardio: COMMON NORMALS: no JVD, regular rate, regular rhythm, S1 normal heart sound present, S2 normal heart sound present and Peripheral pulses 2+ throughout RATE: regular rate RHYTHM: regular rhythm HEART SOUNDS: S1 normal heart sound present and S2 normal heart sound present PERIPHERAL PULSES: Peripheral pulses 2+ throughout GI: COMMON NORMALS: Normal to inspection, nondistended, normoactive bowel sounds present, Soft to palpation, non-tender and no masses INSPECTION: Yes normal to inspection PALPATION: Yes Soft to palpation : COMMON NORMALS: Yes no CVA tenderness BLADDER/KIDNEY EXAM: Yes no CVA tenderness Back/Pelvis: COMMON NORMALS: no CVA tenderness, thoracic and lumbar spine normal to inspection, no thoracic nor lumbar tenderness and thoraco-lumbar ROM normal Extremity: COMMON NORMALS: normal to inspection, full ROM, capillary refill normal, no joint enlargement and no pedal edema GENERAL: Yes normal exam except as noted Neuro: COMMON NORMALS: patient oriented x3, CN's II-XII intact bilaterally, moves all extremities, no focal motor deficits, no sensory deficits noted and gait normal SENSORIUM/ORIENTATION: Yes alert, Yes oriented to person, Yes oriented to place and Yes oriented to time MENINGEAL SIGNS: Yes no meningeal signs Psych: COMMON NORMALS: mental status grossly normal, Normal thought process present, cooperative, normal affect and speech normal APPEARANCE: Yes well kempt ATTITUDE: Yes calm SPEECH: Yes normal speech THOUGHT PROCESS: Normal thought process present Skin: COMMON NORMALS: no rashes or lesions noted GENERAL SKIN EXAM: no rashes or lesions noted Course Vital Signs: Vital signs: Vital Signs Temperature 98.0 F 12/17/20 12:43 Pulse Rate 103 H 12/17/20 12:43 Respiratory Rate 18 12/17/20 12:43 Blood Pressure 111/81 12/17/20 12:43 Pulse Oximetry 99 12/17/20 12:43 MDM - Abdominal Pain MDM Narrative: Medical decision making narrative: The patient came to the ED complaining of abdominal pain. Labs were grossly normal and so was belly CT. Recommended she follow-up outpatient with her primary care in a week and GI in 1 to 2 weeks. ER with worsening symptoms. Discharged with omeprazole to see if that would help her pain. Lab Data: Labs: Lab Results 12/17/20 12/17/20 12/17/20 Range/Units 13:55 13:55 13:55 WBC 7.6 (4.0-10.0) 10^3/ uL RBC 4.46 (4.1-5.3) 10^6/u L Hgb 13.1 (11.5-15.3) g/dL Hct 39.9 (37.0-47.0) % MCV 89.5 (81-99) fL MCH 29.4 (28.0-34.0) pg MCHC 32.8 (30.0-36.0) g/dL RDW 13.5 (12.1-15.1) % Plt Count 279 (130-400) 10^3/c mm MPV 11.9 H (7.4-10.4) fL Neut % (Auto) 63.5 % Lymph % (Auto) 27.9 % [place] % (Auto) 6.7 % Eos % (Auto) 1.2 % Baso % (Auto) 0.3 % Neut # (Auto) 4.81 (1.8-7.7) 10^3/u L Lymph # (Auto) 2.1 (0.8-4.8) 10^3/u L [place] # (Auto) 0.5 (0.2-0.9) 10^3/u L Eos # (Auto) 0.1 (0.0-0.8) 10^3/u L Baso # (Auto) 0.0 (0.0-0.1) 10^3/u L Nucleated RBC % (a uto) 0 % Nucleated RBCs # 0.0 /100WBC Sodium 138 (136-145) mmol/L Potassium 3.8 (3.5-5.1) mmol/L Chloride 100 (98-107) mmol/L Carbon Dioxide 31 H (22-29) mmol/L Anion Gap 10.8 (5-19) BUN 10 (6-20) mg/dL Creatinine 0.7 (0.5-0.9) mg/dL GFR Calculation 94.2 (90-130) mL/min Glucose 83 (65-115) mg/dL Calculated Osmolal ity 284 L (285-295) mOsm/k g Lactate 1.0 (0.5-2.2) mmol/L Calcium 9.4 (8.5-10.5) mg/dL Total Bilirubin 0.5 (0.15-1.2) mg/dL AST 32 (0-32) U/L ALT 42 H (0-33) U/L Alkaline Phosphata se 88 (35-105) IU/L Total Protein 8.1 (6.6-8.7) g/dL Albumin 4.3 (3.5-5.2) g/dL Globulin 3.8 (1.3-4.6) g/dL Lipase 61 H (13-60) U/L HCG, Qual (Negative) Urine Color (Yellow) Urine Appearance (CLEAR) Urine pH (5-7) Ur Specific Gravit y (1.005-1.030) Urine Protein (Negative) Urine Glucose (UA) (Normal) Urine Ketones (Negative) Urine Blood (Negative) Urine Nitrate (Negative) Urine Bilirubin (Negative) Prot Sulfosalicyli c Acd (Negative) Urine Urobilinogen (Negative) mg/dL Ur Leukocyte Zeina ase (Negative) 12/17/20 12/17/20 Range/Units 13:55 14:34 WBC (4.0-10.0) 10^3/ uL RBC (4.1-5.3) 10^6/u L Hgb (11.5-15.3) g/dL Hct (37.0-47.0) % MCV (81-99) fL MCH (28.0-34.0) pg MCHC (30.0-36.0) g/dL RDW (12.1-15.1) % Plt Count (130-400) 10^3/c mm MPV (7.4-10.4) fL Neut % (Auto) % Lymph % (Auto) % [place] % (Auto) % Eos % (Auto) % Baso % (Auto) % Neut # (Auto) (1.8-7.7) 10^3/u L Lymph # (Auto) (0.8-4.8) 10^3/u L [place] # (Auto) (0.2-0.9) 10^3/u L Eos # (Auto) (0.0-0.8) 10^3/u L Baso # (Auto) (0.0-0.1) 10^3/u L Nucleated RBC % (a uto) % Nucleated RBCs # /100WBC Sodium (136-145) mmol/L Potassium (3.5-5.1) mmol/L Chloride (98-107) mmol/L Carbon Dioxide (22-29) mmol/L Anion Gap (5-19) BUN (6-20) mg/dL Creatinine (0.5-0.9) mg/dL GFR Calculation (90-130) mL/min Glucose (65-115) mg/dL Calculated Osmolal ity (285-295) mOsm/k g Lactate (0.5-2.2) mmol/L Calcium (8.5-10.5) mg/dL Total Bilirubin (0.15-1.2) mg/dL AST (0-32) U/L ALT (0-33) U/L Alkaline Phosphata se (35-105) IU/L Total Protein (6.6-8.7) g/dL Albumin (3.5-5.2) g/dL Globulin (1.3-4.6) g/dL Lipase (13-60) U/L HCG, Qual Negative (Negative) Urine Color Yellow (Yellow) Urine Appearance Clear (CLEAR) Urine pH 9 H (5-7) Ur Specific Gravit y 1.010 (1.005-1.030) Urine Protein Neg (Negative) Urine Glucose (UA) Norm (Normal) Urine Ketones Negative (Negative) Urine Blood Neg (Negative) Urine Nitrate Negative (Negative) Urine Bilirubin Neg (Negative) Prot Sulfosalicyli c Acd Negative (Negative) Urine Urobilinogen 1 H (Negative) mg/dL Ur Leukocyte Zeina ase Negative (Negative) Discharge Plan Discharge Patient Disposition: Home Clinical Impression: Abdominal pain Condition: Stable Prescriptions: New omeprazole 40 mg capsule,delayed release(DR/EC) 40 mg PO DAILY 14 Days RF: 0 No Action naproxen [Naprosyn] 500 mg tablet 500 mg PO BID PRN (Reason: pain) Qty: 60 RF: 0 tizanidine 2 mg tablet 2 mg PO BID PRN (Reason: muscle spasticity) Qty: 60 RF: 0 multivitamin Tablet 1 tab PO DAILY RF: 0 albuterol sulfate [ProAir HFA] 90 mcg/actuation Hfa Aerosol Inhaler 2 puff INHALATION Q4H PRN (Reason: Shortness Of Breath) RF: 0 famotidine [Pepcid] 20 mg tablet 20 mg PO BID@0800,1900 PRN (Reason: Acid Reflux) RF: 0 hydroxyzine HCl 25 mg tablet See Rx Instructions .ROUTE .COMPLEX RF: 0 Claritin-D 12 Hour 5-120 mg tablet extended release 12 hr 1 tab PO BID Qty: 6 RF: 0 fluticasone propionate [Flonase Allergy Relief] 50 mcg/actuation spray,suspension 2 spray intranasal DAILY Qty: 16 RF: 0 Cymbalta 20 mg capsule,delayed release(DR/EC) 20 mg PO DAILY@0900 RF: 0 Discharge Orders: Discharge ED (Routine); Ordered 12/17/20 Ordered By: Carlito Guido Referrals: Jonna Brenner DO [Primary Care Provider] - Patient Instructions: Abdominal Pain (ED), Opioid Safety Activity Restrictions/Additional Instructions: You have abdominal pain of unclear cause. I have prescribed you omeprazole to take for a couple weeks. Please get refills from the pharmacy as this could continue to help your belly pain if they are caused by gastritis or ulcers. It is important that you follow-up with a research quality assurance analyst in a week or 2. I have placed a case management referral to help you get a appointment with them. They should be calling tomorrow to assist with this. Return to the ER with worsening symptoms otherwise follow-up with your primary care physician next week. Coding Level of Care Code ED Watch Technician for Jamel [place]
[2020-12-17 14:41] LABS: Alanine Aminotransferase 42 U/L (0-33); Albumin Level 4.3 g/dL (3.5-5.2); Alkaline Phosphatase 88 IU/L (35-105); Anion Gap 10.8 (5-19); Aspartate Amino Transferase 32 U/L (0-32); Blood Urea Nitrogen 10 mg/dL (6-20); Calcium 9.4 mg/dL (8.5-10.5); Carbon Dioxide 31 mmol/L (22-29); Chloride 100 mmol/L (98-107); Creatinine Clr Calc Pharmacy 122.6256; Globulin 3.8 g/dL (1.3-4.6); Glomerular Filtration Rate 94.2 mL/min (90-130); Glucose 83 mg/dL (65-115); Lipase 61 U/L (13-60); Osmolality Calculated 284 mOsm/kg (285-295); Potassium 3.8 mmol/L (3.5-5.1); Sodium 138 mmol/L (136-145); Total Bilirubin 0.5 mg/dL (0.15-1.2); Total Protein 8.1 g/dL (6.6-8.7)
[2020-12-17 14:54] LABS: Add Urine Microscopic? NO
--- NOTE | 2020-12-17 15:11 | CT_ITS ---
WS: [id number] CT abdomen pelvis w con* [id number] REASON FOR EXAM: abdominal pain INTRAVENOUS CONTRAST ADMINISTERED: 95 mL of Omnipaque 300 FINDINGS: ABDOMEN: The liver, spleen, and pancreas are unremarkable. Status post cholecystectomy. The adrenal glands and kidneys are within normal limits. No abdominal mass or adenopathy is identified. No free fluid or focal fluid collection is identified. The abdominal aorta and its major branches are unremarkable. No bowel abnormality. Patient is status post appendectomy. 6 sigmoid diverticulosis without findings of diverticulitis. Unremarkable lumbar spine. PELVIS: Mildly enlarged uterus with no focal lesion. No mass, free fluid, or focal fluid collection. Unremarkable bony pelvis. Unremarkable urinary bladder. CT/CT abdomen pelvis w con* [id number] IMPRESSION: No acute abdominal or pelvic abnormality. TOTAL EXAM DLP: 1822.[address] scans at [facility] use at least one of these dose optimizati on techniques: automated exposure control; mA and/or kV adjustment per patient size (includes targeted exams where dose is matched to clinical indication); or iterative reconstruction.
[2020-12-17] MEDS: iohexol 300 mg/mL 100 mL Btl IV (15:26)
[2020-12-17 15:27] LABS: Urine Appearance Clear (CLEAR); Urine Color Yellow (Yellow); pH Urine 9 (5-7)
[2020-12-17 15:28] LABS: Bilirubin Urine Neg (Negative); Blood Urine Neg (Negative); Glucose Urine UA Norm (Normal); Ketones Urine Negative (Negative); Leukocyte Esterase Urine Negative (Negative); Nitrate Urine Negative (Negative); Protein Urine Neg (Negative); Sulfosalicylic Acid Urine Negative (Negative); Urobilinogen Urine 1 mg/dL (Negative)
[2020-12-17] MEDS: morphine 4 mg/mL SDV 1 mL 2 MG IVP (16:10)
[2020-12-17 16:11] VITALS: BP 118/80; PULSE 85; RESP 16; O2SAT 100
[2020-12-17 16:54] VITALS: BP 125/57; PULSE 79; RESP 16; O2SAT 100
--- NOTE | 2020-12-18 10:42 | DCPLANNER ---
funeral home manager received message to schedule appointment with GI for abd pain. funeral home manager emailed [facility] and they will contact patient with appt information.
--- NOTE | 2020-12-25 07:30 | DCPLANNER ---
Patient has a followup appointment scheduled for December at 12:[address] Avalos at [facility] General Surgery. Clinic will call patient with appointment information.
--- NOTE | 2020-12-25 07:32 | DCPLANNER ---
Patient has a follow up appointment scheduled for December at 12:[address] Avalos at [facility] General Surgery. Clinic will call patient with appointment information.
--- NOTE | 2021-01-31 09:35 | DCPLANNER ---
Patient had a follow up appointment scheduled for 12.26.[address] Avalos at [facility] General surgery - patient did attend appointment.
== END 2020-12-17 16:55 | disposition home or self-care (01) ==
PROVIDERS: Emergency Provider Family Medicine; PCP Family Medicine
DX: R10.9 Unspecified abdominal pain (principal); Z87.891 Personal history of nicotine dependence
CPT/HCPCS: 74177; 80053; 81003; 83605; 83690; 84703; 85025; 96361; 96374; 96375; 99283; J1885; J2270; J2405; J7030; Q9967

== ENCOUNTER → 2021-01-02 12:14 | Outpatient (BNVA) | payer BC, MEDICAID, SELFPAY | PROVIDERS: PCP Family Medicine; Visit Provider Psychiatry & Neurology Psychiatry | DX: F41.0 Panic disorder [episodic paroxysmal anxiety] (principal); F41.1 Generalized anxiety disorder; F43.12 Post-traumatic stress disorder, chronic | CPT/HCPCS: 99213 ==

== ENCOUNTER 2021-03-12 15:10 | Outpatient (CLI) | payer BC, MEDICAID, SELFPAY ==
--- NOTE | 2021-03-12 15:45 | USCV_ITS ---
Nilesh Payton Age: 35 Gender: F : 1985 Exam Date: 03/12/2021 15:19 Ordering Phys: Jonna Brenner DO Technologist: Armida Oseguera Exam Location: [facility] [place] Indication: Dyspnea on exertion BP: / HR: 64 Rhythm: Sinus Technical Quality: Adequate MEASUREMENTS (Male / Female) Normal Values 2D ECHO LV Diastolic Diameter PLAX 3.6 cm 4.2 - 5.9 / 3.9 - 5.3 cm LV Systolic Diameter PLAX 2.0 cm LV Chamber Size 3.6 cm IVS Diastolic Thickness 1.1 cm 0.6 - 1.0 / 0.6 - 0.9 cm IVS Systolic Thickness 1.2 cm LVPW Diastolic Thickness 1.1 cm 0.6 - 1.0 / 0.6 - 0.9 cm LVPW Systolic Thickness 1.2 cm RV Chamber Size 3.1 cm LVOT Diameter 2.0 cm LV Ejection Fraction 2D Teich 77.1 % LV Ejection Fraction MOD 2C 59.7 % LV Ejection Fraction 2C AL 63.1 % LA Diameter 3.5 cm LA Width 2.5 cm LA Height 4.0 cm RA Width 2.7 cm RA Height 3.3 cm Aorta at Sinotubular Diameter 2.2 cm M-MODE LV Diastolic Diameter MM 4.3 cm 4.2 - 5.9 / 3.9 - 5.3 cm LV Systolic Diameter MM 3.1 cm LV Ejection Fraction MM Teich 56.0 % IVS Diastolic Thickness MM 1.0 cm 0.6 - 1.0 / 0.6 - 0.9 cm IVS Systolic Thickness MM 1.1 cm LVPW Diastolic Thickness MM 0.9 cm 0.6 - 1.0 / 0.6 - 0.9 cm LVPW Systolic Thickness MM 1.2 cm RV Diastolic Diameter MM 1.7 cm Aortic Annulus Diameter 2.6 cm LA Ao Ratio MM 1.4 MV E Point Septal Separation 0.4 cm DOPPLER AV Peak Velocity 152.0 cm/s LVOT Peak Velocity 103.0 cm/s AV Area Cont Eq vti 2.1 cm squared AV Area Cont Eq pk 2.2 cm squared MV E' Velocity 13.0 cm/s TR Peak Velocity 195.9 cm/s TR Peak Gradient 15.4 mmHg TR Mean Velocity 150.1 cm/s TR Mean Gradient 10.0 mmHg TR Velocity Time Integral 54.5 cm TV Peak E Velocity 58.0 cm/s Right Atrial Pressure 3.0 mmHg Pulmonary Artery Systolic Pressu 18.4 mmHg PV Peak Velocity 79.7 cm/s RV Acceleration Time 0.1 s RV Ejection Time 0.4 s RV AcT/ET 0.4 FINDINGS Left Ventricle Normal left ventricular size, systolic function and wall thickness, with no regional wall motion abnormalities. Left ventricular ejection fraction is estimated at 65 %. Normal diastolic function. Right Ventricle Normal right ventricular size and systolic function. Right ventricular systolic pressure 18.4 mmHg. Right Atrium Normal right atrial size. Right atrial pressure estimated at 3 mmHg. Left Atrium Normal left atrial size. Mitral Valve Mildly thickened mitral valve. No mitral valve stenosis. Trace mitral valve regurgitation. Aortic Valve Structurally normal trileaflet aortic valve. No aortic valve stenosis. No aortic valve regurgitation. Tricuspid Valve Structurally normal tricuspid valve. No tricuspid valve stenosis. Trace to mild tricuspid valve regurgitation. Pulmonic Valve Structurally normal pulmonic valve. No pulmonary valve stenosis. Trace pulmonary valve regurgitation. Pericardium No pericardial effusion. Aorta Normal size aortic root and proximal ascending aorta. Normal- sized inferior vena cava. CONCLUSIONS 1. Normal left ventricular size, systolic function and wall thickness, with no regional wall motion abnormalities. Left ventricular ejection fraction is estimated at 65 %. Normal diastolic function. 2. Normal right ventricular size and systolic function. 3. Pulmonary artery pressure estimated at 18 mmHg. 4. No significant valvular abnormality. 5. No prior similar studies to compare. Amanda Eid MD (Electronically Signed) Final Date: 15 March 2021 11:50 S
== END 2021-03-12 15:11 | disposition home or self-care (01) ==
LOC: RAD 15:14
PROVIDERS: PCP Family Medicine; Visit Provider Family Medicine
DX: R06.09 Other forms of dyspnea (principal)
CPT/HCPCS: 84443; 93306

== ENCOUNTER 2021-03-14 16:38 | Outpatient (CLI) | payer BC, MEDICAID, SELFPAY ==
--- NOTE | 2021-03-14 17:06 | XR_ITS ---
WS: [id number] Chest 2 views, 03/14/2021 Clinical Data: cough Comparison: PA and lateral chest, 12/07/2020. Findings: No nodules, masses or effusions are seen. The heart is normal. The pulmonary vascularity is not increased. No pneumonia or pneumothorax is seen. There are clips in the abdomen from a cholecyst ectomy. XR/XR chest 2V* [id number] Impression: Negative chest.
== END 2021-03-14 16:39 | disposition home or self-care (01) ==
PROVIDERS: PCP Family Medicine; Visit Provider Registered Nurse Neonatal Intensive Care
DX: R05 Cough (principal)
CPT/HCPCS: 71046

== ENCOUNTER 2021-03-21 20:00 | Outpatient (CLI) | payer BC, MEDICAID, SELFPAY | END 2021-03-21 20:01 | disposition home or self-care (01) | LOC: SLEEP 03-22 08:29 | PROVIDERS: PCP Family Medicine; Visit Provider Family Medicine | DX: G47.33 Obstructive sleep apnea (adult) (pediatric) (principal) | CPT/HCPCS: 95810 ==

== ENCOUNTER 2021-04-02 06:37 | Outpatient (CLI) | payer BC, MEDICAID, SELFPAY ==
--- NOTE | 2021-04-02 14:27 | PFTS_ITS ---
Date of Study:04/02/21 Date of Dictation: MECHANICS: Forced vital capacity (FVC) is normal. Forced expiratory volume in one second (FEV1) is normal. FEV1/FVC is normal. FLOW VOLUME LOOP: Flattening of the inspiratory limb, suggestive of variable inspiratory flow obstruction LUNG VOLUMES: Total lung capacity (TLC) is normal. Residual volume (RV) is normal. DIFFUSING CAPACITY FOR CARBON MONOXIDE: Normal. INTERPRETATION: The pulmonary function tests are normal. The flow volume loop is suggestive of variable inspiratory flow obstruction, which can be seen with vocal cord dysfunction. Lung volumes are normal. Gas exchange (DLCO) is normal. MTDD
== END 2021-04-02 06:38 | disposition home or self-care (01) ==
PROVIDERS: PCP Family Medicine; Visit Provider Family Medicine
DX: R06.2 Wheezing (principal)
CPT/HCPCS: 94010; 94726; 94729

== ENCOUNTER → 2021-04-13 16:53 | Outpatient (BNVA) | payer BC, MEDICAID, SELFPAY | PROVIDERS: PCP Family Medicine; Visit Provider Nurse Practitioner Family | DX: Z20.822 Contact with and (suspected) exposure to COVID-19 (principal) | CPT/HCPCS: 87635 ==

== ENCOUNTER → 2021-04-24 18:45 | Outpatient (BNVA) | payer BC, MEDICAID, SELFPAY | PROVIDERS: PCP Family Medicine; Visit Provider Registered Nurse Neonatal Intensive Care | DX: R39.9 Unspecified symptoms and signs involving the genitourinary system (principal); N39.0 Urinary tract infection, site not specified | CPT/HCPCS: 81000 ==

== ENCOUNTER → 2021-04-30 11:27 | Outpatient (BNVA) | payer BC, MEDICAID, SELFPAY | PROVIDERS: PCP Family Medicine; Visit Provider Family Medicine | DX: R82.90 Unspecified abnormal findings in urine (principal) | CPT/HCPCS: 81003; 87086 ==

== ENCOUNTER → 2021-05-06 10:08 | Outpatient (BNVA) | payer BC, MEDICAID, SELFPAY | PROVIDERS: PCP Family Medicine; Visit Provider Nurse Practitioner Family | DX: Z20.822 Contact with and (suspected) exposure to COVID-19 (principal) | CPT/HCPCS: 87635 ==

== ENCOUNTER → 2021-05-09 10:28 | Outpatient (BNVA) | payer BC, MEDICAID, SELFPAY | PROVIDERS: PCP Family Medicine; Visit Provider Nurse Practitioner Family | DX: J06.9 Acute upper respiratory infection, unspecified (principal); Z20.822 Contact with and (suspected) exposure to COVID-19 | CPT/HCPCS: 87426 ==

== ENCOUNTER 2021-05-14 08:42 | Outpatient (CLI) | payer BC, MEDICAID, SELFPAY ==
--- NOTE | 2021-05-14 08:58 | FL_ITS ---
WS: [id number] DOUBLE CONTRAST UPPER GI EXAMINATION HISTORY: R14.0 - Abdominal distension (gaseous) COMPARISON: None available. FLUOROSCOPY TIME: 2.4 minutes. Barium mixture traversed normally throughout the esophagus. No filling defects within the stomach. Du odenal bulb was normally distensible and pliable. No gastroesophageal reflux No hiatal hernia was demonstrated on this exam. FL/FL upper GI w air* [id number] IMPRESSION: Normal upper GI examination.
== END 2021-05-14 08:43 | disposition home or self-care (01) ==
PROVIDERS: PCP Family Medicine; Visit Provider Surgery
DX: R14.0 Abdominal distension (gaseous) (principal)
CPT/HCPCS: 74246

== ENCOUNTER → 2021-06-03 15:18 | Outpatient (BNVA) | payer BC, MEDICAID, SELFPAY | PROVIDERS: PCP Family Medicine; Visit Provider Obstetrics & Gynecology | DX: R21 Rash and other nonspecific skin eruption (principal) | CPT/HCPCS: 88305 ==

== ENCOUNTER → 2021-06-07 18:45 | Outpatient (BNVA) | payer BC, MEDICAID, SELFPAY | PROVIDERS: PCP Family Medicine; Visit Provider Registered Nurse Neonatal Intensive Care | DX: Z20.822 Contact with and (suspected) exposure to COVID-19 (principal) | CPT/HCPCS: 87635 ==

== ENCOUNTER → 2021-06-18 13:15 | Outpatient (BNVA) | payer BC, MEDICAID, SELFPAY | PROVIDERS: PCP Family Medicine; Visit Provider Psychiatry & Neurology Psychiatry | DX: F43.12 Post-traumatic stress disorder, chronic (principal); F41.1 Generalized anxiety disorder | CPT/HCPCS: 99213 ==

== ENCOUNTER 2021-07-10 07:41 | Emergency (ER) | payer BC, MEDICAID, SELFPAY ==
[2021-07-10 07:54] VITALS: BP 120/77; PULSE 84; RESP 18; TEMP 36.7; O2SAT 94; BMI 45.7
--- NOTE | 2021-07-10 08:02 | ED_ITS ---
HPI - General Adult General: Stated complaint: PAIN/PRESSURE IN HEAD X 1 WK; NECK PAIN Time Seen by Provider: 07/10/21 07:57 History of Present Illness: HPI narrative: This patient is a 35-year-old female who presents to the emergency department with a complaint of sinus type headache. Patient describes pressure tightness to the right side of her head. Feels like it comes back up from the back that she has chronically but this tightness and throbbing in the front is different. Patient does have a long history of seasonal allergies and does take Arleen daily. Patient denies blurry vision. Will do medical evaluation treat as needed. Patient denies fev er. Onset (ago): week(s) Location: head Radiation: non-radiation Severity: moderate Severity scale (1-10): 6 Quality: constant Pain Consistency: constant Associated symptoms: Reports headache(s); Deny chest pain, dyspnea, nausea, rash, palpitations or vomiting Review of Systems General: Reports: 10 or more systems reviewed and unremarkable except in HPI and below Const: Denies: fever(s), chills, body aches or fatigue Eyes: Denies: change in vision or blurry vision ENMT: Denies: throat pain, hoarseness or mouth pain Card: Denies: chest pain, palpitations, irregular heart rhythm, edema, swelling of feet/ankles or lightheadedness Resp: Denies: dyspnea, productive cough, non-productive cough, wheezing or pain on inspiration GI: Denies: abdominal pain, nausea or vomiting : Denies: flank pain, difficulty voiding, dysuria, urinary frequency, urinary urgency or urinary hesitancy Musc: Denies: neck pain, back pain, extremity pain, extremity swelling, joint pain, joint swelling, joint redness, joint warmth or limited range of motion Skin/Breast: Denies: rash, pruritus, erythema or skin tenderness Neuro: Reports: headache(s); Denies: numbness in extremities or weakness in extremities Psych: Denies: anxiety or depression [facility] ED PFSH: Medical History Anxiety and depression PTSD---diagnosed in 2010---managed by [facility]-she sees Dr. Lu every 2 months. History of seizure Diagnosed in 2017 and per patient they were found to be new distress. Has not had any symptoms or seizures since 2019. No pertinent past medical history Denies diabetes, hypertension, DVT/PE PCP: Dr. Brenner Obesity, Class III, BMI 40-49.9 (morbid obesity) CRISELDA (obstructive sleep apnea) Diagnosed in 2020 and is getting fitted for CPAP in May 2021. Psychiatric care Surgical History History of bilateral tubal ligation (06/04/16) LTF, right salpingectomy. Performed by Dr. Jama at [facility] in [place], [place]. 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 Appendectomy performed by Dr. Cota. -----> pathology showed----> Infarcted leiomyoma with reactive changes. Adhe rent to distal end of fallopian tube; Benign appendix. History of cholecystectomy (~2011) Laparoscopic. S/P laparoscopic appendectomy (06/04/16) Performed at time of sterilization. Performed by Dr. Cota at [facility] in [place], [place] Family History Family/Other Thyroid disease paternal aunt Grandmother Thyroid disease paternal Breast cancer maternal, diagnosed in her 40s Ovarian cancer paternal, diagosed in her 40s Diabetes maternal, paternal Hypertension maternal and paternal Heart disease maternal Grandfather Diabetes maternal, paternal Hypertension maternal and paternal Stroke paternal Heart disease paternal Father Hypertension Stroke Mother Hypertension Denies family history of Colon cancer Hyperlipidemia Uterine cancer Social History Smoking and tobacco status: former smoker (QUIT 2004 ) Quit status (tobacco): has quit using tobacco Year quit tobacco: 2004 Second hand smoke exposure: No Alcohol intake: current Alcohol intake frequency: holidays/special occasions only Desire information about alcohol rehabilitation?: No Desire information about substance/drug rehabilitation?: No Physical Exam Const: COMMON NORMALS: no acute distress, average body habitus, patient oriented x3, no limitations, healthy appearing, alert and well nourished HENMT: COMMON NORMALS: normocephalic, atraumatic, hearing grossly normal bilaterally, external ears normal, EAC's normal, TM's normal bilaterally, Normal external nose present, Normal nasal mucous membranes and turbinates present, moist oral mucous membranes, oropharynx normal, dentition normal and gingiva normal HEAD & SCALP: normocephalic and atraumatic NOSE: Normal external nose present and Normal nasal mucous membranes and turbinates present EXTERNAL EAR: Yes external ears normal EXTERNAL AUDITORY CANAL: EAC's normal TYMPANIC MEMBRANE: TM's normal bilaterally Neck/C-Spine: COMMON NORMALS: full ROM, no lymphadenopathy, supple, no meningeal signs, no JVD, Thyroid normal and No carotid bruits THYROID: Thyroid normal Chest: COMMONS NORMALS: normal inspection of the chest, normal palpation of entire chest wall, normal inspection of the breasts and normal palpation of the breasts Breast/axilla inspection: Yes normal inspection of the breasts BREAST/AXILLA PALPATION: Yes normal palpation of the breasts Resp: COMMON NORMALS: normal respiratory effort, No retractions, No use of accessory muscles, clear to auscultation bilaterally and percussion normal AUSCULTATION: clear to auscultation bilaterally PERCUSSION: percussion normal Cardio: COMMON NORMALS: no JVD, regular rate, regular rhythm, S1 normal heart sound present, S2 normal heart sound present, No gallops present (Cardio), No clicks present (Cardio), No murmurs present (Cardio), No rub (Cardio) and Peripheral pulses 2+ throughout RATE: regular rate RHYTHM: regular rhythm HEART SOUNDS: S1 normal heart sound present and S2 normal heart sound present PERIPHERAL PULSES: Peripheral pulses 2+ throughout GI: COMMON NORMALS: Normal to inspection, nondistended, normoactive bowel sounds present, Soft to palpation, non-tender, No hepatosplenomegaly present, no masses and no bruits PALPATION: Yes Soft to palpation and Yes No hepatosplenomegaly present Back/Pelvis: COMMON NORMALS: thoracic and lumbar spine normal to inspection, no thoracic nor lumbar tenderness, thoraco-lumbar ROM normal and straight leg r aise negative bilaterally Extremity: COMMON NORMALS: normal to inspection, full ROM, capillary refill normal, no joint enlargement, no clubbing, cyanosis or edema, no calf tenderness and no pedal edema Neuro: COMMON NORMALS: patient oriented x3 SENSORIUM/ORIENTATION: Yes alert MENINGEAL SIGNS: Yes no meningeal signs MDM - General Adult MDM Narrative: Medical decision making narrative: This patient is a 35-year-old female who presents to the emergency department with a complaint of sinus type headache. Patient describes pressure tightness to the right side of her head. Feels like it comes back up from the back that she has chronically but this tightness and throbbing in the front is different. Patient does have a long history of seasonal allergies and does take Arleen daily. Patient denies blurry vision. Will do medical evaluation treat as needed. Patient denies fever. Patient given Toradol and Benadryl. Patient instructed to follow-up with primary care physician in 2 to 3 days. Continue all home medications. Discharge Plan Discharge Patient Disposition: Home Clinical Impression: Headache Condition: Stable Prescriptions: No Action naproxen [Naprosyn] 500 mg tablet 500 mg PO BID PRN (Reason: pain) Qty: 60 RF: 0 oxybutynin chloride 5 mg tablet 5 mg PO BID Qty: 60 RF: 0 fluticasone propionate [Flonase Allergy Relief] 50 mcg/actuation spray,suspension 2 spray intranasal DAILY PRNRF: 0 clobetasol 0.05 % cream 1 applic topical .COMPLEX Qty: 30 RF: 0 Arleen-D 24 Hour 180-240 mg tablet extended release 24 hr 1 tab PO DAILY PRN (Reason: sinus symptoms) Qty: 10 RF: 0 albuterol sulfate [Ventolin HFA] 90 mcg/actuation HFA aerosol inhaler 2 puff inhalation Q6H PRN (Reason: shortness of breath or wheezing) 30 Days Qty: 8.5 RF: 5 gabapentin 100 mg capsule 100 mg PO DAILY Qty: 30 RF: 2 (DME) AUTO-TITRATING CPAP See Rx Instructions .Route .MEDSUPPLY Qty: 1 RF: 0 duloxetine [Cymbalta] 30 mg capsule,delayed release(DR/EC) 30 mg PO DAILY Qty: 30 RF: 2 multivitamin Tablet 1 tab PO DAILY RF: 0 hydroxyzine HCl 25 mg tablet See Rx Instructions .ROUTE .COMPLEX RF: 0 Discharge Orders: Discharge ED (Routine); Ordered 07/10/21 Ordered By: Allan Lowry Referrals: Jonna Brenner DO [Primary Care Provider] - Discharge Diet: Advance as tolerated Patient Instructions: Opioid Safety Activity Restrictions/Additional Instructions: Encourage p.o. fluids. Get plenty rest. Continue all home medications. Follow-up with PCP in 2 to 3 days. Coding Level of Care Code ED Strap Cutter for Jamel Houston
[2021-07-10] MEDS: diphenhydrAMINE 50 mg/mL SDV 1mL IM (08:17)
[2021-07-10] MEDS: ketorolac 30 mg/mL INJ IM (08:20)
--- NOTE | 2021-07-10 08:23 | PC.NURSE ---
Pt is on shot time until 0835 l
[2021-07-10 09:15] VITALS: BP 115/71; PULSE 80; RESP 17; O2SAT 97
== END 2021-07-10 09:14 | disposition home or self-care (01) ==
LOC: ER 08:17
PROVIDERS: Emergency Provider Emergency Medicine; PCP Family Medicine
DX: R51.9 Headache, unspecified (principal); Z87.891 Personal history of nicotine dependence
CPT/HCPCS: 96372; 99283; J1200; J1885

== ENCOUNTER 2021-07-13 01:01 | Emergency (ER) | payer BC, MEDICAID, SELFPAY ==
[2021-07-13 01:18] VITALS: BP 133/95; PULSE 81; RESP 19; TEMP 36.6; O2SAT 98; BMI 45.7
--- NOTE | 2021-07-13 01:24 | PC.NURSE ---
pt started on sumatriptan on . thinks the medication is making her other symptoms worse but made her headache better.
[2021-07-13 01:25] VITALS: BP 133/95; PULSE 73; RESP 16; O2SAT 100
--- NOTE | 2021-07-13 01:36 | W.ED.HA ---
HPI - Headache General: Chief Complaint: Headache Stated Complaint: Headache\Dizzy\N\ABD Pain Time Seen by Provider: 07/13/21 01:25 History of Present Illness: HPI Narrative: Patient states she has felt weird since starting her sumatriptan. Patient said she started medication on and has taken the medication twice and each time that she is taking that she has felt nauseous, and felt dizzy, and legs hurt. Once medications wore off she felt better. Patient has history of chronic headaches MD elicited complaint: headache Onset (ago): day(s) Associated symptoms: Reports nausea; Deny chest pain, fever(s), rash or vomiting Review of Systems Const: Denies: fever(s), chills or body aches Eyes: Denies: change in vision or blurry vision ENMT: Denies: throat pain or nasal congestion Card: Denies: chest pain or dyspnea on exertion Resp: Denies: dyspnea, productive cough or non-productive cough GI: Reports: nausea; Denies: abdominal pain or vomiting Musc: Reports: extremity pain Skin/Breast: Denies: rash Neuro: Reports: headache(s) and dizziness Psych: Denies: anxiety or depression Kalyan/Lymph: Denies: easy bruising PFSH ED PFSH: Medical History Anxiety and depression PTSD---diagnosed in 2010---managed by [facility]-she sees Dr. Lu every 2 months. History of seizure Diagnosed in 2017 and per patient they were found to be new distress. Has not had any symptoms or seizures since 2019. No pertinent past medical history Denies diabetes, hypertension, DVT/PE PCP: Dr. Brenner Obesity, Class III, BMI 40-49.9 (morbid obesity) CRISELDA (obstructive sleep apnea) Diagnosed in 2020 and is getting fitted for CPAP in May 2021. Psychiatric care Surgical History History of bilateral tubal ligation (06/04/16) LTF, right salpingectomy. Performed by Dr. Jama at [facility] in [place], [place]. 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 Appendectomy performed by Dr. Cota. -----> pathology showed----> Infarcted leiomyoma with reactive changes. Adherent to distal end of fallopian tube; Benign appendix. History of cholecystectomy (~2011) Laparoscopic. S/P laparoscopic appendectomy (06/04/16) Performed at time of sterilization. Performed by Dr. Cota at [facility] in [place], [place] Family History Family/Other Thyroid disease paternal aunt Grandmother Thyroid disease paternal Breast cancer maternal, diagnosed in her 40s Ovarian cancer paternal, diagosed in her 40s Diabetes maternal, paternal Hypertension maternal and paternal Heart disease maternal Grandfather Diabetes maternal, paternal Hypertension maternal and paternal Stroke paternal Heart disease paternal Father Hypertension Stroke Mother Hypertension Denies family history of Colon cancer Hyperlipidemia Uterine cancer Social History Smoking and tobacco status: former smoker (QUIT 2004 ) Quit status (tobacco): has quit using tobacco Year quit tobacco: 2004 Second hand smoke exposure: No Alcohol intake: current Alcohol intake frequency: holidays/special occasions only Desire information about alcohol rehabilitation?: No Desire information about substance/drug rehabilitation?: No Female Reproductive History: Date of last menstrual period: 06/24/21 Physical Exam Const: COMMON NORMALS: no acute distress, average body habitus and patient oriented x3 HENMT: COMMON NORMALS: normocephalic HEAD & SCALP: normal to inspection and normocephalic FACE & SINUS: normal facial exam Eye: COMMON NORMALS: conjunctivae normal GENERAL EYE: appearance normal, both eyes and all related structures CONJUNCTIVA: Yes conjunctivae normal Neck/C-Spine: COMMON NORMALS: no JVD CERVICAL SPINE: Yes cervical ROM normal, No Cervical spine tenderness and Yes Paracervical muscle tenderness Chest: COMMONS NORMALS: normal inspection of the chest Resp: COMMON NORMALS: normal respiratory effort and clear to auscultation bilaterally AUSCULTATION: clear to auscultation bilaterally Cardio: COMMON NORMALS: no JVD, regular rate and regular rhythm RATE: regular rate RHYTHM: regular rhythm GI: COMMON NORMALS: Normal to inspection, nondistended, normoactive bowel sounds present Extremity: COMMON NORMALS: normal to inspection and full ROM Neuro: COMMON NORMALS: patient oriented x3, moves all extremities, no focal motor deficits and no sensory deficits noted Course Vital Signs: Vital signs: Vital Signs Temperature 97.8 F 07/13/21 01:18 Pulse Rate 73 07/13/21 01:25 Respiratory Rate 16 07/13/21 01:25 Blood Pressure 133/95 07/13/21 01:25 Pulse Oximetry 100 07/13/21 01:25 Discharge Plan Discharge Patient Disposition: Home Clinical Impression: Headache Qualifiers: Headache type: tension-type Headache chronicity pattern: chronic headache Intractability: intractable Qualified Code(s): G44.221 - Chronic tension-type headache, intractable Adverse effect of drug/medicinal Qualifiers: Encounter type: initial encounter Qualified Code(s): T50.905A - Adverse effect of unspecified drugs, medicaments and biological substances, initial encounter Condition: Stable Prescriptions: New Fioricet 50-300-40 mg capsule 1 cap PO Q6H PRN (Reason: tension headache) Qty: 14 RF: 0 Zofran 4 mg tablet 4 mg PO Q8H 3 Days Qty: 9 RF: 0 Discontinued sumatriptan succinate [Imitrex] 100 mg tablet See Rx Instructions PO .COMPLEX Qty: 9 RF: 0 No Action naproxen [Naprosyn] 500 mg tablet 500 mg PO BID PRN (Reason: pain) Qty: 60 RF: 0 oxybutynin chloride 5 mg tablet 5 mg PO BID Qty: 60 RF: 0 fluticasone propionate [Flonase Allergy Relief] 50 mcg/actuation spray,suspension 2 spray intranasal DAILY PRNRF: 0 clobetasol 0.05 % cream 1 applic topical .COMPLEX Qty: 30 RF: 0 Arleen-D 24 Hour 180-240 mg tablet extended release 24 hr 1 tab PO DAILY PRN (Reason: sinus symptoms) Qty: 10 RF: 0 albuterol sulfate [Ventolin HFA] 90 mcg/actuation HFA aerosol inhaler 2 puff inhalation Q6H PRN (Reason: shortness of breath or wheezing) 30 Days Qty: 8.5 RF: 5 gabapentin 100 mg capsule 100 mg PO DAILY Qty: 30 RF: 2 (DME) AUTO-TITRATING CPAP See Rx Instructions .Route .MEDSUPPLY Qty: 1 RF: 0 duloxetine [Cymbalta] 30 mg capsule,delayed release(DR/EC) 30 mg PO DAILY Qty: 30 RF: 2 multivitamin Tablet 1 tab PO DAILY RF: 0 hydroxyzine HCl 25 mg tablet See Rx Instructions .ROUTE .COMPLEX RF: 0 Discharge Orders: Discharge ED (Routine); Ordered 07/13/21 Ordered By: Parish Prince Referrals: Jonna Brenner DO [Primary Care Provider] - Discharge Diet: Usual diet Discharge Activity: Resume usual activity Patient Instructions: Tension Headache (ED), Adverse Drug Reaction (ED) Activity Restrictions/Additional Instructions: Follow-up with medical provider as directed. Take medications as prescribed. Return to the ER or your medical provider if condition worsens. Please read and understand discharge instructions. If any questions ask please. Stop taking sumatriptan and notify your provider on Thursday and see if they want to continue or start new medication. Coding Level of Care Code ED Electronics Mechanic Apprentice for Jamel Houston
[2021-07-13] MEDS: ondansetron 4 MG Tablet 8 MG PO (01:41)
[2021-07-13] MEDS: ketorolac 60 mg/2 mL INJ IM (01:41)
[2021-07-13] MEDS: diphenhydrAMINE 25 mg Capsule PO (01:41)
[2021-07-13 01:44] VITALS: BP 133/95; PULSE 89; RESP 16; TEMP 36.6; O2SAT 98
== END 2021-07-13 01:45 | disposition home or self-care (01) ==
PROVIDERS: Emergency Provider Nurse Practitioner Family; PCP Family Medicine
DX: G44.221 Chronic tension-type headache, intractable (principal); T50.905A Adverse effect of unspecified drugs, medicaments and biological substances, initial encounter; Z87.891 Personal history of nicotine dependence
CPT/HCPCS: 96372; 99283; J1885; Q0162

== ENCOUNTER 2021-07-19 07:31 | Emergency (ER) | payer BC, MEDICAID, SELFPAY ==
[2021-07-19] VITALS (65 sets, daily range): BP systolic 93–136; BP diastolic 67–101; PULSE 76; RESP 17–19; TEMP 37.1; O2SAT 98–100; BMI 48.6
--- NOTE | 2021-07-19 08:05 | ECG_ITS ---
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 Measurements Intervals [place] Rate: 78 P: 13 ID: [id number] QRS: 15 QRSD: 79 T: 12 QT: 355 QTc: 407 Interpretive Statements SINUS RHYTHM Compared to ECG 12/07/2020 15:35:34 Myocardial infarct finding no longer present Electronically Signed On 07-19-2021 18:35:48 CDT by Eyad Aly M.D. [id number]
--- NOTE | 2021-07-19 08:05 | XR_ITS ---
WS: [id number] XR chest 1V portable [id number] REASON FOR EXAM: dyspnea/cough FINDINGS: Chest is unchanged compared to 03/14/2021. The heart and mediastinum are within normal limits. Calcified granulomatous changes in both hemithoraces. No active pulmonary parenchymal or pleural disease noted. No significant abnormality of the bony thorax. XR/XR chest 1V portable [id number] IMPRESSION: No acute chest abnormality.
[2021-07-19] MEDS: sodium chloride 0.9% 1,000 ML 999 ML IV ×2 (08:11→10:49)
[2021-07-19 08:15] LABS: Basophils % 0.3 %; Eosinophils # 0.2 10^3/uL (0.0-0.8); Eosinophils % 2.3 %; Hematocrit 40.2 % (37.0-47.0); Lymphocytes # 2.5 10^3/uL (0.8-4.8); Lymphocytes % 37.6 %; Mean Corpuscular HGB Conc 32.3 g/dL (30.0-36.0); Mean Corpuscular Hemoglobin 28.5 pg (28.0-34.0); Mean Corpuscular Volume 88.2 fl (81-99); Mean Platelet Volume 11.9 fL (7.4-10.4); Monocytes # 0.4 10^3/uL (0.2-0.9); Neutrophils # 3.56 10^3/uL (1.8-7.7); Neutrophils % 53.5 %; Nucleated Red Blood Cells % 0 %; Platelet Count 234 10^3/cmm (130-400); Red Blood Count 4.56 10^6/uL (4.1-5.3); Red Cell Distribution Width 13.4 % (12.1-15.1); White Blood Count 6.7 10^3/uL (4.0-10.0)
[2021-07-19] MEDS: ondansetron 2 mg/ML SDV 2 mL 4 MG IVP (08:36)
[2021-07-19 08:40] LABS: Albumin Level 3.9 g/dL (3.5-5.2); Alkaline Phosphatase 91 IU/L (35-105); Blood Urea Nitrogen 11 mg/dL (6-20); Calcium 9.2 mg/dL (8.5-10.5); Carbon Dioxide 28 mmol/L (22-29); Chloride 99 mmol/L (98-107); Globulin 3.7 g/dL (1.3-4.6); Glomerular Filtration Rate 112.5 mL/min (90-130); Glucose 98 mg/dL (65-115); Osmolality Calculated 279 mOsm/kg (285-295); Sodium 135 mmol/L (136-145); Total Bilirubin 0.3 mg/dL (0.15-1.2); Total Protein 7.6 g/dL (6.6-8.7)
--- NOTE | 2021-07-19 08:41 | CT_ITS ---
WS: [id number] CT HEAD NONCONTRAST HISTORY: Dizziness and headache. TECHNIQUE: Contiguous axial imaging performed through the brain in 2.5 mm imaging. Bone and soft tiss ue windows. Sagittal and coronal reformats reviewed. All CT scans at [facility] use at least one of these dose optimization techniques: automated exposure control; mA and/or kV adjustment per pa tient size (includes targeted exams where dose is matched to clinical indication); or iterative recon struction. DLP: 818.57 mGy.cm COMPARISON: 06/29/2016 No acute intracranial hemorrhage, midline shift or mass effect. No atrophy or prior infarcts or herniation. Ventricles: Normal size with no hydrocephalus. Paranasal sinuses: As visualized are clear. Mastoid air cells: Well pneumatized. Calvarium and scalp: Skull is intact with no soft tissue edema or swelling. CT/CT head wo con* [id number] IMPRESSION: Negative head CT.
[2021-07-19 08:44] LABS: Anion Gap 12.5 (5-19); Potassium 4.5 mmol/L (3.5-5.1)
[2021-07-19 08:45] LABS: Alanine Aminotransferase 18 U/L (0-33); Aspartate Amino Transferase 25 U/L (0-32)
--- NOTE | 2021-07-19 09:13 | W.ED.DIZZY ---
HPI - Dizziness General: Chief Complaint: Dizziness Stated Complaint: DIZZY,SHARP PAIN BETWEEN SHOULDERS/ON R SIDES Time Seen by Provider: 07/19/21 07:45 History of Present Illness: HPI Narrative: 35-year-old female presents emergency room with complaint of abdominal pain lower back pain dizziness. She has had these symptoms since 1 week ago. She was seen previously in the ER but her primary complaint at that time was side effects to her headache medicine sumatriptan which was stopped. She states she is continue to have symptoms since then. She is complaining of a lot of left-sided abdominal pain, mid abdominal region. She denies any hematochezia melena hematemesis coffee-ground emesis no dysuria urgency or frequency no fevers. Denies any cough or respiratory symptoms. She has previously had a hysterectomy. MD elicited complaint: dizziness and lightheadedness Onset (ago): week(s) Timing: gradual onset Severity: moderate Description: lightheadedness History of similar symptoms: Yes Exacerbating factors: nothing Relieving factors: nothing Associated symptoms: Denies chest pain, chills, malaise or nasal congestion Associated neuro symptoms: Deny confusion, difficulty speaking, dysphagia, diplopia, extremity weakness, facial numbness, facial weakness, gait changes, numbness in extremities or visual changes Review of Systems Const: Denies: fever(s), chills, body aches, change in appetite, fatigue or malaise ENMT: Denies: throat pain, ear or mastoid pain, nasal discharge or nasal congestion Card: Denies: chest pain, edema, dyspnea on exertion or orthopnea Resp: Denies: dyspnea, productive cough or non-productive cough GI: Denies: dysphagia : Denies: flank pain, difficulty voiding, dysuria, urinary frequency or urinary urgency Skin/Breast: Denies: rash or pruritus Neuro: Denies: numbness in extremities or confusion PFS ED PFSH: Medical History Anxiety and depression PTSD---diagnosed in 2010---managed by [facility]-she sees Dr. Lu every 2 months. History of seizure Diagnosed in 2017 and per patient they were found to be new distress. Has not had any symptoms or seizures since 2019. No pertinent past medical history Denies diabetes, hypertension, DVT/PE PCP: Dr. Brenner Obesity, Class III, BMI 40-49.9 (morbid obesity) CRISELDA (obstructive sleep apnea) Diagnosed in 2020 and is getting fitted for CPAP in May 2021. Psychiatric care Surgical History History of bilateral tubal ligation (06/04/16) LTF, right salpingectomy. Performed by Dr. Jama at [facility] [place], [place]. 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 Appendectomy performed by Dr. Cota. -----> pathology showed----> Infarcted leiomyoma with reactive changes. Adherent to distal end of fallopian tube; Benign appendix. History of cholecystectomy (~2011) Laparoscopic. S/P laparoscopic appendectomy (06/04/16) Performed at time of sterilization. Performed by Dr. Cota at [facility] in [place], [place] Family History Family/Other Thyroid disease paternal aunt Grandmother Thyroid disease paternal Breast cancer maternal, diagnosed in her 40s Ovarian cancer paternal, diagosed in her 40s Diabetes maternal, paternal Hypertension maternal and paternal Heart disease maternal Grandfather Diabetes maternal, paternal Hypertension maternal and paternal Stroke paternal Heart disease paternal Father Hypertension Stroke Mother Hypertension Denies family history of Colon cancer Hyperlipidemia Uterine cancer Social History Smoking and tobacco status: former smoker Quit status (tobacco): has quit using tobacco Year quit tobacco: 2004 Second hand smoke exposure: No Alcohol intake: current Alcohol intake frequency: holidays/special occasions only Desire information about alcohol rehabilitation?: No Desire information about substance/drug rehabilitation?: No Female Reproductive History: Date of last menstrual period: 06/24/21 Physical Exam Const: COMMON NORMALS: no acute distress GENERAL APPEARANCE: cooperative and comfortable ORIENTATION/CONSCIOUSNESS: Yes awake, Yes oriented to person, Yes oriented to place and Yes oriented to time HENMT: COMMON NORMALS: normocephalic, atraumatic and hearing grossly normal bilaterally HEAD & SCALP: normocephalic and atraumatic Neck/C-Spine: COMMON NORMALS: no JVD Resp: COMMON NORMALS: normal respiratory effort, No retractions, No use of accessory muscles and clear to auscultation bilaterally AUSCULTATION: clear to auscultation bilaterally Cardio: COMMON NORMALS: no JVD, regular rate, regular rhythm and No murmurs present (Cardio) RATE: regular rate RHYTHM: regular rhythm GI: COMMON NORMALS: Soft to palpation and No hepatosplenomegaly present AUSCULTATION: Yes normoactive bowel sounds PALPATION: Yes Soft to palpation, Yes Tenderness to palpation present (GI) Details: LLQ and LUQ, No Guarding due to palpation present (GI) and Yes No hepatosplenomegaly present Extremity: COMMON NORMALS: normal to inspection, capillary refill normal, no clubbing, cyanosis or edema, no calf tenderness and no pedal edema Neuro: SENSORIUM/ORIENTATION: Yes oriented to person, Yes oriented to place and Yes oriented to time Skin: COMMON NORMALS: no rashes or lesions noted GENERAL SKIN EXAM: no rashes or lesions noted Course Vital Signs: Vital signs: Vital Signs Temperature 98.7 F 07/19/21 07:39 Pulse Rate 76 07/19/21 07:39 Respiratory Rate 17 07/19/21 12:37 Blood Pressure 117/93 07/19/21 14:00 Pulse Oximetry 99 07/19/21 13:55 MDM - Dizziness MDM Narrative: Medical decision making narrative: Labs and imaging reviewed. No significant findings patient's biggest issue is her back pain. Her dizziness for the most part is resolved we will go ahead and discharge her home and gave her hydrocodone prednisone promethazine for back pain encouraged to follow-up with primary care doctor vision worsening change symptoms return. Lab Data: Labs: Lab Results 07/19/21 07/19/21 07/19/21 07:50 07:50 09:45 WBC 6.7 10^3/uL 10^3/ uL (4.0-10.0) RBC 4.56 10^6/uL 10^6 /uL (4.1-5.3) Hgb 13.0 g/dL g/dL (11.5-15.3) Hct 40.2 % % (37.0-47.0) MCV 88.2 fl fl (81-99) MCH 28.5 pg pg (28.0-34.0) MCHC 32.3 g/dL g/dL (30.0-36.0) RDW 13.4 % % (12.1-15.1) Plt Count 234 10^3/cmm 10^3 /cmm (130-400) MPV 11.9 fL H fL (7.4-10.4) Neut % (Auto) 53.5 % % Lymph % (Auto) 37.6 % % [place] % (Auto) 6.0 % % Eos % (Auto) 2.3 % % Baso % (Auto) 0.3 % % Neut # (Auto) 3.56 10^3/uL 10^3 /uL (1.8-7.7) Lymph # (Auto) 2.5 10^3/uL 10^3/ uL (0.8-4.8) [place] # (Auto) 0.4 10^3/uL 10^3/ uL (0.2-0.9) Eos # (Auto) 0.2 10^3/uL 10^3/ uL (0.0-0.8) Baso # (Auto) 0.0 10^3/uL 10^3/ uL (0.0-0.1) Nucleated RBC % (a uto) 0 % % Nucleated RBCs # 0.0 /100WBC /100W BC Sodium 135 mmol/L L mmol /L (136-145) Potassium 4.5 mmol/L mmol/L (3.5-5.1) Chloride 99 mmol/L mmol/L (98-107) Carbon Dioxide 28 mmol/L mmol/L (22-29) Anion Gap 12.5 (5-19) BUN 11 mg/dL mg/dL (6-20) Creatinine 0.6 mg/dL mg/dL (0.5-0.9) GFR Calculation 112.5 mL/min mL/m in (90-130) Glucose 98 mg/dL mg/dL (65-115) Calculated Osmolal ity 279 mOsm/kg L mOs m/kg (285-295) Calcium 9.2 mg/dL mg/dL (8.5-10.5) Total Bilirubin 0.3 mg/dL mg/dL (0.15-1.2) AST 25 U/L U/L (0-32) ALT 18 U/L U/L (0-33) Alkaline Phosphata se 91 IU/L IU/L (35-105) Total Protein 7.6 g/dL g/dL (6.6-8.7) Albumin 3.9 g/dL g/dL (3.5-5.2) Globulin 3.7 g/dL g/dL (1.3-4.6) Urine Color Yellow (Yellow) Urine Appearance Clear (CLEAR) Urine pH 8 H (5-7) Ur Specific Gravit y 1.010 (1.005-1.030) Urine Protein Neg (Negative) Urine Glucose (UA) Norm (Normal) Urine Ketones Negative (Negative) Urine Blood Neg (Negative) Urine Nitrate Negative (Negative) Urine Bilirubin Neg (Negative) Prot Sulfosalicyli c Acd Negative (Negative) Urine Urobilinogen Norm mg/dL mg/dL (Negative) Ur Leukocyte Zeina ase Negative (Negative) Discharge Plan Discharge Patient Disposition: Home Clinical Impression: Back pain, Dizziness Condition: Stable Prescriptions: New hydrocodone-acetaminophen 5-325 mg tablet 1 tab PO Q6H PRN (Reason: pain) Qty: 10 RF: 0 prednisone 20 mg tablet 20 mg PO DAILY Qty: 15 RF: 0 promethazine 25 mg tablet 25 mg PO Q6H PRN (Reason: nausea and vomiting) Qty: 10 RF: 0 No Action oxybutynin chloride 5 mg tablet 5 mg PO BID Qty: 60 RF: 0 fluticasone propionate [Flonase Allergy Relief] 50 mcg/actuation spray,suspension 2 spray intranasal DAILY PRNRF: 0 clobetasol 0.05 % cream 1 applic topical .COMPLEX Qty: 30 RF: 0 promethazine 12.5 mg tablet 12.5 mg PO TID Qty: 20 RF: 0 ketorolac 10 mg tablet 10 mg PO TID PRN (Reason: pain) 5 Days Qty: 20 RF: 0 Arleen-D 24 Hour 180-240 mg tablet extended release 24 hr 1 tab PO DAILY PRN (Reason: sinus symptoms) Qty: 10 RF: 0 albuterol sulfate [Ventolin HFA] 90 mcg/actuation HFA aerosol inhaler 2 puff inhalation Q6H PRN (Reason: shortness of breath or wheezing) 30 Days Qty: 8.5 RF: 5 gabapentin 100 mg capsule 100 mg PO DAILY Qty: 30 RF: 2 (DME) AUTO-TITRATING CPAP See Rx Instructions .Route .MEDSUPPLY Qty: 1 RF: 0 duloxetine [Cymbalta] 30 mg capsule,delayed release(DR/EC) 30 mg PO DAILY Qty: 30 RF: 2 tizanidine 2 mg tablet 2 mg PO BID PRN (Reason: muscle spasticity) Qty: 30 RF: 0 multivitamin Tablet 1 tab PO DAILY RF: 0 hydroxyzine HCl 25 mg tablet See Rx Instructions .ROUTE .COMPLEX RF: 0 Fioricet 50-300-40 mg capsule 1 cap PO Q6H PRN (Reason: tension headache) Qty: 14 RF: 0 Discharge Orders: Discharge ED (Routine); Ordered 07/19/21 Ordered By: Juan Wang Referrals: Jonna Brenner DO [Primary Care Provider] - Discharge Diet: Usual diet Discharge Activity: Increase activity as tolerated Patient Instructions: Opioid Safety Coding Level of Care Code ED Incoming Freight Clerk for Jamel Houston
[2021-07-19 10:05] LABS: Add Urine Microscopic? NO; Charge for UA Resulting for Rev
[2021-07-19 10:09] LABS: Bilirubin Urine Neg (Negative); Blood Urine Neg (Negative); Glucose Urine UA Norm (Normal); Ketones Urine Negative (Negative); Leukocyte Esterase Urine Negative (Negative); Nitrate Urine Negative (Negative); Protein Urine Neg (Negative); Sulfosalicylic Acid Urine Negative (Negative); Urine Appearance Clear (CLEAR); Urine Color Yellow (Yellow); Urobilinogen Urine Norm (Negative); pH Urine 8 (5-7)
[2021-07-19] MEDS: morphine 4 mg/mL SDV 1 mL IVP (10:49)
[2021-07-19] MEDS: promethazine 25 mg/mL SDV 1 mL IM (10:50)
--- NOTE | 2021-07-19 11:51 | CT_ITS ---
WS: [id number] CT ABDOMEN AND PELVIS WITH CONTRAST HISTORY: Abdominal and epigastric pain. TECHNIQUE: Imaging performed of the abdomen and pelvis with IV contrast. Single phase imaging of the abdomen. Coronal and sagittal reformats are submitted. All CT scans at [facility] use at [address] one of these dose optimization techniques: automated exposure control; mA and/or kV adjustment per patient size (includes targeted exams where dose is matched to clinical indication); or iterative re construction. IV CONTRAST: Omnipaque 300; 95 mL IV. Oral contrast: No DLP: 1804.42 mGy.cm COMPARISON: 12/17/2020 Lower thorax: Lung bases are clear. Heart is normal size. Small hiatal hernia. Liver/biliary system: Normal size with no intrahepatic dilatation. Gallbladder: Status post cholecystectomy. Pancreas: Normal size pancreas and pancreatic duct. No adjacent inflammation. Spleen: Normal size spleen. No mass or infarct. Adrenal glands: Normal. Right kidney: Normal. Left kidney: Normal. Aorta: Normal. Lymphadenopathy: None. Free fluid: None. GI tract: Unremarkable. Prior appendectomy. No obstruction. Abdominal wall: Unremarkable abdominal wall. No hernia. Pelvis: No free fluid or adenopathy within the pelvis. Bones: Unremarkable. CT/CT abdomen pelvis w con* [id number] IMPRESSION: 1. Prior cholecystectomy. 2. Small hiatal hernia. 3. No acute abdominal or pelvic abnormalities. 4. Prior appendectomy.
[2021-07-19] MEDS: iohexol 300 mg/mL 100 mL Btl IV (12:02)
[2021-07-19] MEDS: morphine 4 mg/mL SDV 1 mL 2 MG IVP (12:37)
== END 2021-07-19 14:03 | disposition home or self-care (01) ==
PROVIDERS: Emergency Provider Family Medicine; PCP Family Medicine
DX: M54.50 Low back pain, unspecified (principal); R42 Dizziness and giddiness
CPT/HCPCS: 70450; 71045; 74177; 80053; 81003; 85025; 93005; 96361; 96372; 96374; 96375; 96376; 99284; J2270; J2405; J2550; J7030; Q9967

== ENCOUNTER → 2021-09-12 12:37 | Outpatient (BNVA) | payer BC, MEDICAID, SELFPAY | PROVIDERS: PCP Family Medicine; Visit Provider Psychiatry & Neurology Psychiatry | DX: F41.1 Generalized anxiety disorder (principal); F43.12 Post-traumatic stress disorder, chronic | CPT/HCPCS: 99213 ==

== ENCOUNTER 2021-09-30 10:34 | Outpatient (CLI) | payer BC, MEDICAID, SELFPAY ==
--- NOTE | 2021-09-30 11:42 | MR_ITS ---
WS: [id number] MRI CERVICAL SPINE NONCONTRAST TECHNIQUE: Sagittal T1, T2 and STIR imaging. Axial T2, gradient, and fiesta imaging. CLINICAL INFORMATION: chronic neck pain with headaches COMPARISON: None. FINDINGS: Straightening of the normal cervical lordosis. Cord signal is normal. No high-grade central canal melvin rowing. C2-C3: Normal. C3-C4: No significant disc bulging. Mild facet arthropathy. Spinal canal and foramen are patent. C4-C5: Mild facet arthropathy. Spinal canal and foramen are patent C5-C6: No significant disc bulging. Mild facet arthropathy. Spinal canal and foramen are patent. C6-C7: No significant disc bulging. Spinal canal and foramen are patent. Mild facet arthropathy. C7-T1: Normal. Visualized brain stem structures: Normal. Prevertebral soft tissues: Normal. MR/MR cervical spin wo con* [id number] IMPRESSION: 1. Straightening of the normal cervical lordosis. Cord signal is normal. No hi gh-grade central canal narrowing. 2. Mild facet arthropathy C3-C4 C4-C5 and C5-C6. 3. No significant spinal canal or foraminal narrowing.
== END 2021-09-30 10:35 | disposition home or self-care (01) ==
LOC: RADSHAW 10:38
PROVIDERS: PCP Family Medicine; Visit Provider Family Medicine
DX: G89.29 Other chronic pain (principal); R51.9 Headache, unspecified; M47.812 Spondylosis without myelopathy or radiculopathy, cervical region
CPT/HCPCS: 72141

== ENCOUNTER → 2021-10-14 10:20 | Outpatient (BNVA) | payer BC, MEDICAID, SELFPAY | PROVIDERS: PCP Family Medicine; Referring Provider Family Medicine; Visit Provider Anesthesiology Pain Medicine | DX: G89.29 Other chronic pain (principal); M79.18 Myalgia, other site; M54.2 Cervicalgia | CPT/HCPCS: 20553; 99205; J1030; J3490 ==

== ENCOUNTER 2021-11-06 12:11 | Emergency (ER) | payer BC, MEDICAID, SELFPAY ==
[2021-11-06 12:22] VITALS: BP 116/76; PULSE 94; RESP 16; TEMP 36.6; O2SAT 95; BMI 47.7
[2021-11-06 14:37] LABS: Basophils % 0.4 %; Eosinophils # 0.2 10^3/uL (0.0-0.8); Eosinophils % 2.2 %; Hematocrit 41.5 % (37.0-47.0); Hemoglobin 13.5 g/dL (11.5-15.3); Lymphocytes # 2.2 10^3/uL (0.8-4.8); Lymphocytes % 29.9 %; Mean Corpuscular HGB Conc 32.5 g/dL (30.0-36.0); Mean Corpuscular Hemoglobin 28.4 pg (28.0-34.0); Mean Corpuscular Volume 87.2 fl (81-99); Mean Platelet Volume 11.8 fL (7.4-10.4); Monocytes # 0.3 10^3/uL (0.2-0.9); Monocytes % 4.6 %; Neutrophils # 4.66 10^3/uL (1.8-7.7); Neutrophils % 62.6 %; Nucleated Red Blood Cells % 0 %; Platelet Count 291 10^3/cmm (130-400); Red Blood Count 4.76 10^6/uL (4.1-5.3); Red Cell Distribution Width 13.6 % (12.1-15.1); White Blood Count 7.4 10^3/uL (4.0-10.0)
[2021-11-06 14:50] LABS: HCG, Serum Qual Negative (Negative)
[2021-11-06 14:58] LABS: Alanine Aminotransferase 20 U/L (0-33); Alkaline Phosphatase 109 IU/L (35-105); Anion Gap 12.9 (5-19); Aspartate Amino Transferase 19 U/L (0-32); Blood Urea Nitrogen 9 mg/dL (6-20); Carbon Dioxide 30 mmol/L (22-29); Chloride 98 mmol/L (98-107); Globulin 3.2 g/dL (1.3-4.6); Glomerular Filtration Rate 94.2 mL/min (90-130); Glucose 92 mg/dL (65-115); Lipase 35 U/L (13-60); Osmolality Calculated 282 mOsm/kg (285-295); Potassium 3.9 mmol/L (3.5-5.1); Sodium 137 mmol/L (136-145); Total Bilirubin 0.4 mg/dL (0.15-1.2); Total Protein 7.2 g/dL (6.6-8.7)
--- NOTE | 2021-11-06 15:14 | W.ED.GENADLT ---
HPI - General Adult General: Chief complaint: General Medical Stated complaint: ACID REFLUX, PAIN IN LEFT SIDE OF RIBS Time Seen by Provider: 11/06/21 14:52 Source: patient Mode of arrival: ambulatory Limitations: no limitations History of Present Illness: Patient is a 35-year-old female who presents to ED today with a complaint of intermittent epigastric pains that radiates up into her chest over the past 2 days. Patient initially thought her symptoms were related to acid reflux so has been taking Tums, Pepto, and Prilosec without much relief. She does not believe her symptoms are exacerbated by eating. No provoking factors are noted by patient. She states she has started fasting recently and does not know if that could be contributing to her symptoms. Pain radiates substernally. She does not complain of any shortness of breath or difficulty breathing. She is not having any nausea or vomiting. Normal bowel habits Onset (ago): day(s) Severity: moderate Severity scale (1-10): 7 Pain Consistency: intermittent Relieving factors: none Exacerbating factors: none Associated symptoms: Reports chest pain; Deny dyspnea, malaise, nausea, rash, palpitations, syncope or vomiting Review of Systems Const: Denies: fever(s), chills, body aches, fatigue or malaise ENMT: Denies: throat pain or odynophagia Card: Reports: chest pain; Denies: palpitations, irregular heart rhythm, edema, swelling of feet/ankles, lightheadedness, syncope, pre-syncope, dyspnea on exertion, orthopnea, leg pain with exertion or acrocyanosis Resp: Denies: dyspnea, productive cough, non-productive cough, wheezing, hemoptysis or chest congestion GI: Reports: abdominal pain; Denies: nausea, vomiting, hematemesis, coffee ground emesis, diarrhea, GI cramping or change in bowel habits : Denies: flank pain Musc: Denies: neck pain, back pain, extremity pain or joint pain Skin/Breast: Denies: rash PFSH ED PFSH: Medical History Anxiety and depression PTSD---diagnosed in 2010---managed by [facility]-she sees Dr. Lu every 2 months. History of seizure Diagnosed in 2017 and per patient they were found to be new distress. Has not had any symptoms or seizures since 2019. No pertinent past medical history Denies diabetes, hypertension, DVT/PE PCP: Dr. Brenner CRISELDA (obstructive sleep apnea) Diagnosed in 2020 and is getting fitted for CPAP in May 2021. Surgical History History of bilateral tubal ligation (06/04/16) LTF, right salpingectomy. [place]. Jama [place] [facility] [place], [place]. 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 Appendectomy performed by Dr. Cota. -----> pathology showed----> Infarcted leiomyoma with reactive changes. Adherent to distal end of fallopian tube; Benign appendix. History of cholecystectomy (~2011) Laparoscopic. S/P laparoscopic appendectomy (06/04/16) Performed at time of sterilization. Per[place] by Dr. Cota at [facility] [place], [place] Family History Family/Other Thyroid disease paternal aunt Grandmother Thyroid disease paternal Breast cancer maternal, diagnosed in her 40s Ovarian cancer paternal, diagosed in her 40s Diabetes maternal, paternal Hypertension maternal and paternal Heart disease maternal Grandfather Diabetes maternal, paternal Hypertension maternal and paternal Stroke paternal Heart disease paternal Father Hypertension Stroke Mother Hypertension Denies family history of Colon cancer Hyperlipidemia Uterine cancer Social History Second hand smoke exposure: No Alcohol intake: never Female Reproductive History: Date of last menstrual period: 06/24/21 Physical Exam Const: COMMON NORMALS: no acute distress, patient oriented x3, no limitations and alert GENERAL APPEARANCE: cooperative NUTRITIONAL APPEARANCE: obese morbidly obese ORIENTATION/CONSCIOUSNESS: Yes awake, Yes oriented to person, Yes oriented to place and Yes oriented to time HENMT: COMMON NORMALS: normocephalic and atraumatic HEAD & SCALP: normocephalic and atraumatic Chest: COMMONS NORMALS: normal inspection of the chest OTHER: patient has reproducible chest pain with palpation of her sternum/anterior chest wall Resp: COMMON NORMALS: normal respiratory effort and clear to auscultation bilaterally AUSCULTATION: clear to auscultation bilaterally Cardio: COMMON NORMALS: regular rate and regular rhythm RATE: regular rate RHYTHM: regular rhythm GI: COMMON NORMALS: Normal to inspection, nondistended, normoactive bowel sounds present, Soft to palpation, No hepatosplenomegaly present and no masses PALPATION: Yes Soft to palpation, Yes Tenderness to palpation present (GI) (epigastric-non surgical exam; no other abdominal tenderness noted) and Yes No hepatosplenomegaly present : COMMON NORMALS: Yes no CVA tenderness BLADDER/KIDNEY EXAM: Yes no CVA tenderness Back/Pelvis: COMMON NORMALS: no CVA tenderness Extremity: COMMON NORMALS: no calf tenderness and no pedal edema Neuro: COMMON NORMALS: patient oriented x3, moves all extremities, no focal motor deficits and no sensory deficits noted SENSORIUM/ORIENTATION: Yes alert, Yes oriented to person, Yes oriented to place and Yes oriented to time Skin: COMMON NORMALS: no rashes or lesions noted GENERAL SKIN EXAM: no rashes or lesions noted Course Vital Signs: Vital signs: Vital Signs Temperature 98 F 11/06/21 12: Pulse Rate 94 11/06/21 12:22 Respiratory Rate 16 11/06/21 12:22 Blood Pressure 116/76 11/06/21 12:22 Pulse Oximetry 95 11/06/21 12:22 [facility] - General Adult Medical Decision Making Patient here with intermittent epigastric pains with radiation up into her chest over the past 3 days. She has not found any alleviating or worsening factors to her discomfort. On exam she is directly tender to her epigastric region and also tender to her sternum/anterior chest wall. Work-up including CBC, CMP, lipase, troponin, CXR, and EKG all negative. States GI cocktail maybe helped a little with symptoms. At this point I think she is stable for discharge from the emergency department with follow-up with primary care. Return to ED precautions verbally given to patient. Lab Data : 11/06/21 14:26 11/06/21 14:26 Radiology Impressions Chest X-Ray 11/06/21 15:15 IMPRESSION: No acute chest abnormality. Laboratory Results WBC 7.4 10^3/uL (4.0-10.0) 11/06/21 14: RBC 4.76 10^6/uL (4.1-5.3) 11/06/21 14:26 Hgb 13.5 g/dL (11.5-15.3) 11/06/21 14: Hct 41.5 % (37.0-47.0) 11/06/21 14: MCV 87.2 fl (81-99) 11/06/21 14:26 MCH 28.4 pg (28.0-34.0) 11/06/21 14: MCHC 32.5 g/dL (30.0-36.0) 11/06/21 14: RDW 13.6 % (12.1-15.1) 11/06/21 14: Plt Count 291 10^3/cmm (130-400) 11/06/21 14: MPV 11.8 fL (7.4-10.4) H 11/06/21 14:26 Neut % (Auto) 62.6 % 11/06/21 14:26 Lymph % (Auto) 29.9 % 11/06/21 14:26 [place] % (Auto) 4.6 % 11/06/21 14:26 Eos % (Auto) 2.2 % 11/06/21 14:26 Baso % (Auto) 0.4 % 11/06/21 14: Neut # (Auto) 4.66 10^3/uL (1.8-7.7) 11/06/21 14: Lymph # (Auto) 2.2 10^3/uL (0.8-4.8) 11/06/21 14:26 [place] # (Auto) 0.3 10^3/uL (0.2-0.9) 11/06/21 14: Eos # (Auto) 0.2 10^3/uL (0.0-0.8) 11/06/21 14:26 Baso # (Auto) 0.0 10^3/uL (0.0-0.1) 11/06/21 14: Nucleated RBC % (auto) 0 % 11/06/21 14: Nucleated RBCs # 0.0 /100WBC 11/06/21 14:26 Sodium 137 mmol/L (136-145) 11/06/21 14: Potassium 3.9 mmol/L (3.5-5.1) 11/06/21 14: Chloride 98 mmol/L (98-107) 11/06/21 14:26 Carbon Dioxide 30 mmol/L (22-29) H 11/06/21 14:26 Anion Gap 12.9 (5-19) 11/06/21 14:26 BUN 9 mg/dL (6-20) 11/06/21 14:26 Creatinine 0.7 mg/dL (0.5-0.9) 11/06/21 14:26 GFR Calculation 94.2 mL/min (90-130) 11/06/21 14:26 Glucose 92 mg/dL (65-115) 11/06/21 14:26 Calculated Osmolality 282 mOsm/kg (285-295) L 11/06/21 14:26 Calcium 9.0 mg/dL (8.5-10.5) 11/06/21 14:26 Total Bilirubin 0.4 mg/dL (0.15-1.2) 11/06/21 14:26 AST 19 U/L (0-32) 11/06/21 14:26 ALT 20 U/L (0-33) 11/06/21 14:26 Alkaline Phosphatase 109 IU/L (35-105) H 11/06/21 14:26 Troponin T Gen 5 ng/L 6 ng/L (0-10) 11/06/21 14:26 Total Protein 7.2 g/dL (6.6-8.7) 11/06/21 14:26 Albumin 4.0 g/dL (3.5-5.2) 11/06/21 14:26 Globulin 3.2 g/dL (1.3-4.6) 11/06/21 14:26 Lipase 35 U/L (13-60) 11/06/21 14:26 HCG, Qual Negative (Negative) 11/06/21 14:26 EKG Data EKG 1: EKG interpretation date: 11/06/21 EKG interpretation time: 15:23 Interpretation: Sinus rhythm Rate [address] elevation or depression changes noted Computer generated interpretation: Chest X-Ray 11/06/21 15:15 IMPRESSION: No acute chest abnormality. Discharge Plan Discharge Patient Disposition: Home Clinical Impression: Epigastric pain Condition: Stable Prescriptions: No Action duloxetine [Cymbalta] 30 mg capsule,delayed release(DR/EC) 30 mg PO DAILY Qty: 30 2RF meloxicam [Mobic] 15 mg tablet 15 mg PO DAILY 0RF clobetasol 0.05 % cream 1 applic topical .three times weekly PRN (Reason: vulva lesion) Qty: 15 0RF (DME) AUTO-TITRATING CPAP See Rx Instructions .Route .MEDSUPPLY Qty: 1 0RF Rx Instructions: SETTING IS 8-12CM tizanidine 2 mg tablet 2 mg PO BID PRN (Reason: muscle spasticity) 30 Days Qty: 60 2RF multivitamin Tablet 1 tab PO DAILY 0RF hydroxyzine HCl 25 mg tablet See Rx Instructions .ROUTE .COMPLEX 0RF Rx Instructions: 25MG PO QID PRN ANXIETY/PANIC ATTACKS Discharge Orders: Discharge ED (Routine); Ordered 11/06/21 Ordered By: Peace Otero Referrals: Jonna Brenner DO [Primary Care Provider] - Patient Instructions: Abdominal Pain (ED) Coding Level of Care Code ED Neon Sign Erector for Chg Fwd Exam Comprehensive
--- NOTE | 2021-11-06 15:15 | XR_ITS ---
WS: [id number] XR chest 1V portable [id number] REASON FOR EXAM: chest pain FINDINGS: The chest is unchanged compared to 07/19/2021. The heart and mediastinum are within normal limits. No acute pulmonary parenchymal or pleural disease. Bony thorax is intact. XR/XR chest 1V portable [id number] IMPRESSION: No acute chest abnormality.
--- NOTE | 2021-11-06 15:15 | ECG_ITS ---
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 Measurements Intervals [place] Rate: 69 P: 15 MD: 169 QRS: 5 QRSD: 82 T: 4 QT: 386 QTc: 414 Interpretive Statements SINUS RHYTHM POSSIBLE ANTERIOR MYOCARDIAL INFARCTION , PROBABLY OLD [30 ms Q WAVE IN V3/V4, OR R < 0.2 mV IN V4] Compared to ECG 07/19/2021 07:49:12 Myocardial infarct finding now present Electronically Signed On 11-06-2021 18:32:33 SETTLEMENT AGENT by Eyad Aly M.D. [id number]
[2021-11-06] MEDS: lidocaine 2% viscous 15 ML, aluminum-mag hydrox-simethicon 30 ML, sucralfate oral liq 1 GM PO (15:38)
[2021-11-06 15:40] LABS: Troponin T (5th) Once 6 ng/L (0-10)
[2021-11-06 16:27] VITALS: BP 122/80; PULSE 87; RESP 20; O2SAT 99
== END 2021-11-06 16:28 | disposition home or self-care (01) ==
PROVIDERS: Emergency Provider Physician Assistant; PCP Family Medicine
DX: R10.13 Epigastric pain (principal)
CPT/HCPCS: 71045; 80053; 83690; 84484; 84703; 85025; 93005; 99283

== ENCOUNTER → 2021-11-11 10:51 | Outpatient (BNVA) | payer BC, MEDICAID, SELFPAY | PROVIDERS: PCP Family Medicine; Visit Provider Anesthesiology Pain Medicine | DX: G89.29 Other chronic pain (principal); M54.2 Cervicalgia; Z87.891 Personal history of nicotine dependence | CPT/HCPCS: 99214 ==

== ENCOUNTER → 2021-11-13 08:37 | Outpatient (BNVA) | payer BC, MEDICAID, SELFPAY | PROVIDERS: PCP Family Medicine; Visit Provider Surgery | DX: Z11.52 Encounter for screening for COVID-19 (principal); R10.13 Epigastric pain | CPT/HCPCS: 87635 ==

== ENCOUNTER 2021-11-14 06:33 | Day surgery (SDC) | payer BC, MEDICAID, SELFPAY ==
[2021-11-13 11:26] VITALS: BMI 47.9
[2021-11-14 06:51] VITALS: BP 110/86; PULSE 84; RESP 16; TEMP 36.3; O2SAT 99
--- NOTE | 2021-11-14 06:58 | W.PM.OPSUD ---
Surgery/Procedure H&P Update DATE OF PROCEDURE: November 14, 2021 DATE H&P PERFORMED: 11/13/20 CHANGES TO PREVIOUS DOCUMENTATION: None PREOP DIAGNOSIS: Epigastric pain PRIMARY INDICATION FOR PROCEDURE: Abdominal pain PLANNED PROCEDURE: Operation Date: 11/14/21 07:30 Proposed Procedures p EGD [id number](Not Applicable) - Akira Avalos MD
[2021-11-14] MEDS: sodium chloride 0.9% 1,000 ML 30 ML IV (06:59)
[2021-11-14 07:02] LABS: OR HCG Qualitative Urine Negative (Negative)
--- NOTE | 2021-11-14 07:05 | P.ANESASSM_ITS ---
Pre-Anesthetic Assessment Height/Weight: Height 1.55 m Weight 115.212 kg Temp Pulse Resp BP Pulse Ox 97.4 F L 84 16 110/86 99 11/14/21 06:51 11/14/21 06:51 11/14/21 06:51 11/14/21 06:51 11/14/21 06:51 Preop Diagnosis: Epigastric pain Operation Date: 11/14/21 07:30 Proposed Procedures p EGD 39463/r10.13(Not Applicable) - Akira Avalos MD Familial anesthetic complications: none Last intake: Intake Last Liquid Date 11/13/21 Last Liquid Time 19:30 Last Solid Date 11/13/21 Last Solid Time 18:00 Social No alcohol and No tobacco Airway Submandibular: within normal limits Cervical ROM: within normal limits Mallampati: Class II Dentition: full Pulmonary Sleep Apnea CV/HEM None reported None reported Hepatic None reported GI Gastroesophageal Reflux Disease Metabolic Morbid Obesity [facility] [place] None reported Neuropsych Anxiety, Depression and Seizure (stress induced 2018) Anesthetic Plan ASA status: 3 Medications/Allergies Home Medications Medication Instructions Recorded Confirmed Last Taken Type hydroxyzine HCl 25 mg tablet See Rx Instructions .ROUTE .COMPLEX 11/30/20 11/14/21 11/13/21 History multivitamin 1 tab PO DAILY 11/30/20 11/14/21 11/13/21 History AUTO-TITRATING CPAP #1 ea 05/27/21 11/14/21 Unknown Rx duloxetine 30 mg capsule,delayed 30 mg PO DAILY #30 cap 09/12/21 11/14/21 11/13/21 Rx release (Cymbalta) tizanidine 2 mg tablet 2 mg PO BID PRN 30 Days #60 tab 11/04/21 11/14/21 11/13/21 Rx clobetasol 0.05 % topical cream 1 applic TOPICAL .three times 11/05/21 11/13/21 Unknown Rx weekly PRN #15 g meloxicam 15 mg tablet (Mobic) 15 mg PO DAILY 11/05/21 11/14/21 11/13/21 History Allergies Allergy/AdvReac Type Severity Reaction Status Date / Time sumatriptan [From Imitrex] Allergy Intermediate ADR-Muscle Verified 11/14/21 06:44 Pain amoxicillin AdvReac Intermediate nausea and Verified 11/14/21 06:44 vomiting---can take Penicillin, Keflex lithium AdvReac Intermediate Nausea,Confusion, Verified 11/14/21 06:44 Headache Current Medications Generic Name Dose Route Start Last Admin Trade Name Avni PRN Reason Stop Dose Admin Sodium Chloride 1,000 mls @ 30 mls/hr 11/14/21 06:45 11/14/21 06:59 Sodium Chloride 0.9% IV 30 mls/hr .Q24H JESUS Administration PFSH Anesthesia Medical History Anxiety and depression PTSD---diagnosed in 2010---managed by [facility]-she sees Dr. Lu every 2 months. History of seizure Diagnosed in 2017 and per patient they were found to be new distress. Has not had any symptoms or seizures since 2019. No pertinent past medical history Denies diabetes, hypertension, DVT/PE PCP: Dr. Brenner CRISELDA (obstructive sleep apnea) Diagnosed in 2020 and is getting fitted for CPAP in May 2021. Surgical History History of bilateral tubal ligation (06/04/16) LTF, right salpingectomy. Performed by Dr. Jama at [facility] in [place], [place]. 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 Appendectomy performed by Dr. Cota. -----> pathology showed----> Infarcted leiomyoma with reactive changes. Adherent to distal end of fallopian tube; Benign appendix. History of cholecystectomy (~2011) Laparoscopic. S/P laparoscopic appendectomy (06/04/16) Performed at time of sterilization. Performed by Dr. Cota at [facility] in [place], [place] Family History Family/Other Thyroid disease paternal aunt Grandmother Thyroid disease paternal Breast cancer maternal, diagnosed in her 40s Ovarian cancer paternal, diagosed in her 40s Diabetes maternal, paternal Hypertension maternal and paternal Heart disease maternal Grandfather Diabetes maternal, paternal Hypertension maternal and paternal Stroke paternal Heart disease paternal Father Hypertension Stroke Mother Hypertension Denies family history of Colon cancer Hyperlipidemia Uterine cancer Social History Smoking and tobacco status: former smoker (QUIT 2004 ) Second hand smoke exposure: No Alcohol intake: never Female Reproductive History Date of last menstrual period: 11/06/21 Data Anesthesia Cardiac Studies: Echocardiogram Ultrasound 03/12/21 Cardiac Event Monitor 09/25/20
[2021-11-14 07:26] VITALS: BP 120/89; PULSE 85; RESP 16; TEMP 36.1; O2SAT 99
[2021-11-14 07:51] VITALS: BP 117/75; PULSE 79; RESP 18; O2SAT 95
--- NOTE | 2021-11-14 14:11 | ANE.PACU2 ---
Inpatient post-anesthesia follow up: Airway intact: Yes Vital signs: Temperature 97.0 F Pulse Rate 79 Respiratory Rate 18 Blood Pressure 117/75 Pulse Oximetry 95 Oxygen Delivery Me thod Room Air Oxygen Flow Rate Fraction of Inspir ed Oxygen Hydration adequate: Yes Nausea and vomiting: Yes Pain level: 2 Mental status: Baseline
[2021-11-15 06:03] LABS: H. Pylori / CLO Test Negative
== END 2021-11-14 07:54 | disposition home or self-care (01) ==
PROVIDERS: Anesthesiology; PCP Family Medicine; Visit Provider Surgery
PROC: 0DJ08ZZ Inspection of Upper Intestinal Tract, Via Natural or Artificial Opening Endoscopic (ICD-10-PCS; CPT 43235; principal; 2021-11-14 07:30)
DX: R10.13 Epigastric pain (principal); K21.00 Gastro-esophageal reflux disease with esophagitis, without bleeding; K29.70 Gastritis, unspecified, without bleeding; E66.01 Morbid (severe) obesity due to excess calories; Z68.42 Body mass index [BMI] 45.0-49.9, adult; F41.9 Anxiety disorder, unspecified; F32.9 Major depressive disorder, single episode, unspecified; G47.33 Obstructive sleep apnea (adult) (pediatric); Z87.891 Personal history of nicotine dependence
CPT/HCPCS: 43239; 81025; 84703; 87077; J2704; J7030

== ENCOUNTER 2021-12-27 21:09 | Emergency (ER) | payer BC, MEDICAID, SELFPAY ==
[2021-12-27 21:22] VITALS: BP 127/87; PULSE 84; RESP 20; TEMP 36.7; O2SAT 100; BMI 47.0
--- NOTE | 2021-12-27 21:44 | W.ED.FEMALGU ---
Documented by User: GEMMA Bagley 12/28/21 00:48 HPI - Female Genitourinary General: Chief complaint: Urogenital-Female Stated complaint: L side sore Time Seen by Provider: 12/27/21 21:42 History of Present Illness: 36-year-old female comes in today with complaints of left flank pain radiating to the left groin starting about 2 days ago. Patient reports that there has been a viral syndrome going through their house which at first she thought she might be ill with but the pain has persistently gotten worse. Patient denies any vomiting, diarrhea, or constipation. Patient reports no fever. Patient does report pain with nausea. Patient has a history of obesity, GERD, anxiety with depression, and PTSD which she takes medications for. Associated symptoms: Reports nausea Date of Last Menstrual Period: 06/24/21 Review of Systems General: Reports: 10 or more systems reviewed and unremarkable except in HPI and below Const: Denies: fever(s) Card: Reports: palpitations Resp: Denies: dyspnea GI: Reports: nausea; Denies: vomiting, diarrhea or constipation : Reports: flank pain Musc: Reports: back pain PFSH ED PFSH: Medical History Anxiety and depression PTSD---diagnosed in 2010---managed by [facility]-she sees Dr. Lu every 2 months. History of seizure Diagnosed in 2017 and per patient they were found to be new distress. Has not had any symptoms or seizures since 2019. No pertinent past medical history Denies diabetes, hypertension, DVT/PE PCP: Dr. Brenner CRISELDA (obstructive sleep apnea) Diagnosed in 2020 and is getting fitted for CPAP in May 2021. Surgical History History of bilateral tubal ligation (06/04/16) LTF, right salpingectomy. Performed by Dr. Jama at [facility] in [place], [place]. 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 Appendectomy performed by Dr. Cota. -----> pathology showed----> Infarcted leiomyoma with reactive changes. Adherent to distal end of fallopian tube; Benign appendix. History of cholecystectomy (~2011) Laparoscopic. S/P laparoscopic appendectomy (06/04/16) Performed at time of sterilization. Performed by Dr. Cota at [facility] in [place], [place] Family History Family/Other Thyroid disease paternal aunt Grandmother Thyroid disease paternal Breast cancer maternal, diagnosed in her 40s Ovarian cancer paternal, diagosed in her 40s Diabetes maternal, paternal Hypertension maternal and paternal Heart disease maternal Grandfather Diabetes maternal, paternal Hypertension maternal and paternal Stroke paternal Heart disease paternal Father Hypertension Stroke Mother Hypertension Denies family history of Colon cancer Hyperlipidemia Uterine cancer Social History Smoking and tobacco status: former smoker Second hand smoke exposure: No Alcohol intake: never Female Reproductive History: Date of last menstrual period: 06/24/21 Physical Exam Const: COMMON NORMALS: alert HENMT: COMMON NORMALS: normocephalic HEAD & SCALP: normocephalic Neck/C-Spine: COMMON NORMALS: full ROM Resp: COMMON NORMALS: normal respiratory effort and clear to auscultation bilaterally AUSCULTATION: clear to auscultation bilaterally Cardio: COMMON NORMALS: regular rate and regular rhythm RATE: regular rate RHYTHM: regular rhythm GI: COMMON NORMALS: Soft to palpation AUSCULTATION: Yes normoactive bowel sounds PALPATION: Yes Soft to palpation and Yes Tenderness to palpation present (GI) Details: LLQ : BLADDER/KIDNEY EXAM: Yes CVA tenderness on the left Back/Pelvis: GENERAL BACK: Yes CVA tenderness Extremity: COMMON NORMALS: no pedal edema Neuro: SENSORIUM/ORIENTATION: Yes alert Psych: COMMON NORMALS: cooperative Skin: COMMON NORMALS: no rashes or lesions noted GENERAL SKIN EXAM: no rashes or lesions noted Course Vital Signs: Vital signs: Vital Signs Temperature 98.1 F 12/27/21 21:22 Pulse Rate 84 12/27/21 21:22 Respiratory Rate 18 12/28/21 00:27 Blood Pressure 127/87 12/27/21 21:22 Pulse Oximetry 100 12/27/21 21:22 MDM - Female Medical Decision Making 36-year-old female comes in today with complaints of left flank pain radiating to the left abdomen. On exam patient has some left lower abdominal tenderness on palpation and left flank tenderness on percussion. Respirations are even lungs are clear to auscultation. No edema is noted in the extremities. Vital signs are normal. Differential diagnosis includes but not limited to diverticulitis, renal calculi, urinary tract infection. Laboratory values were unremarkable. Urinalysis did not show any significant abnormalities. CT of the abdomen and pelvis showed no acute abnormalities. Patient was given 4 mg of morphine IV and 4 mg of Zofran IV for nausea and abdominal pain. Patient was encouraged to drink plenty of fluids and stay on the clear liquid diet for the next 24 hours then increase as tolerated. Recommended patient monitoring for worsening symptoms and return as needed. Patient stated understanding and agreed to plan. Lab Data : 12/27/21 22:40 12/27/21:40 Radiology Impressions Abdomen/Pelvis CT 12/27/21:07 IMPRESSION: No acute abnormality demonstrated in the abdomen and pelvis. Laboratory Results WBC 8.7 10^3/uL (4.0-10.0) 12/27/21:40 RBC 4.60 10^6/uL (4.1-5.3) 12/27/21 22:40 Hgb 13.5 g/dL (11.5-15.3) 12/27/21 22:40 Hct 39.3 % (37.0-47.0) 12/27/21:40 MCV 85.4 fl (81-99) 12/27/21 22:40 MCH 29.3 pg (28.0-34.0) 12/27/21:40 MCHC 34.4 g/dL (30.0-36.0) 12/27/21:40 RDW 13.8 % (12.1-15.1) 12/27/21 22:40 Plt Count 286 10^3/cmm (130-400) 12/27/21 22:40 MPV 11.9 fL (7.4-10.4) H 12/27/21 22:40 Neut % (Auto) 57.5 % 12/27/21:40 Lymph % (Auto) 34.6 % 12/27/21 22:40 [place] % (Auto) 5.9 % 12/27/21 22:40 Eos % (Auto) 1.5 % 12/27/21:40 Baso % (Auto) 0.3 % 03/25/22 22:40 Neut # (Auto) 4.98 10^3/uL (1.8-7.7) 12/27/21:40 Lymph # (Auto) 3.0 10^3/uL (0.8-4.8) 12/27/21:40 [place] # (Auto) 0.5 10^3/uL (0.2-0.9) 12/27/21:40 Eos # (Auto) 0.1 10^3/uL (0.0-0.8) 12/27/21:40 Baso # (Auto) 0.0 10^3/uL (0.0-0.1) 12/27/21:40 Nucleated RBC % (auto) 0 % 12/27/21:40 Nucleated RBCs # 0.0 /100WBC 12/27/21:40 Sodium 138 mmol/L (136-145) 12/27/21:40 Potassium 3.4 mmol/L (3.5-5.1) L 12/27/21:40 Chloride 99 mmol/L (98-107) 12/27/21:40 Carbon Dioxide 28 mmol/L (22-29) 12/27/21:40 Anion Gap 14.4 (5-19) 12/27/21:40 BUN 13 mg/dL (6-20) 12/27/21:40 Creatinine 0.8 mg/dL (0.5-0.9) 12/27/21 22:40 GFR Calculation 80.3 mL/min (90-130) L 12/27/21:40 Glucose 104 mg/dL (65-115) 12/27/21 22:40 Calculated Osmolality 286 mOsm/kg (285-295) 12/27/21:40 Calcium 10.1 mg/dL (8.5-10.5) 12/27/21:40 Total Bilirubin 0.3 mg/dL (0.15-1.2) 12/27/21:40 AST 22 U/L (0-32) 12/27/21:40 ALT 30 U/L (0-33) 12/27/21:40 Alkaline Phosphatase 85 IU/L (35-105) 12/27/21:40 Total Protein 7.6 g/dL (6.6-8.7) 12/27/21 22:40 Albumin 4.4 g/dL (3.5-5.2) 12/27/21 22:40 Globulin 3.2 g/dL (1.3-4.6) 12/27/21 22:40 HCG, Qual Negative (Negative) 12/27/21 22:40 Urine Color Yellow (Yellow) 12/27/21 22:30 Urine Appearance Sl cloudy (CLEAR) A 12/27/21 22:30 Urine pH 5 (5-7) 12/27/21 22:30 Ur Specific [place] 1.025 (1.005-1.030) 12/27/21 22:30 Urine Protein Neg (Negative) 12/27/21 22: Urine Glucose (UA) Norm (Normal) 12/27/21 22:30 Urine Ketones 1+ (Negative) H 12/27/21 22:30 Urine Blood Neg (Negative) 12/27/21 22:30 Urine Nitrate Negative (Negative) 12/27/21 22: Urine Bilirubin Neg (Negative) 12/27/21 22:30 Urine Urobilinogen Norm mg/dL (Negative) 12/27/21 22:30 Ur Leukocyte Esterase Trace (Negative) H 12/27/21 22:30 Urine RBC 0-4 /hpf (0-2) H 12/27/21 22:30 Urine WBC 0-4 /hpf (0-5) H 12/27/21 22:30 Ur Squamous Epith Cells 25-40 /hpf (0-5) H 12/27/21 22:30 Amorphous Sediment Not Reportable 12/27/21 22:30 Urine Bacteria 4+ /hpf (NONE) H 12/27/21 22:30 Discharge Plan Discharge Patient Disposition: Home Clinical Impression: Abdominal pain Qualifiers: Abdominal location: left lower quadrant Qualified Code(s): R10.32 - Left lower quadrant pain Condition: Stable Prescriptions: No Action duloxetine [Cymbalta] 30 mg capsule,delayed release(DR/EC) 30 mg PO DAILY Qty: 30 2RF meloxicam [Mobic] 15 mg tablet 15 mg PO DAILY 0RF Hold Instructions: Resume on 11/19/21. clobetasol 0.05 % cream 1 applic topical .three times weekly PRN (Reason: vulva lesion) Qty: 15 0RF Victoza 2-Kai 0.6 mg/0.1 mL (18 mg/3 mL) pen injector 0.6 mg SUBCUT DAILY Qty: 6 0RF Rx Instructions: 340 B Please dispense needle tips as well (DME) AUTO-TITRATING CPAP See Rx Instructions .Route .MEDSUPPLY Qty: 1 0RF Rx Instructions: SETTING IS 8-12CM tizanidine 2 mg tablet 2 mg PO BID PRN (Reason: muscle spasticity) 30 Days Qty: 60 2RF hydroxyzine HCl 25 mg tablet 25 mg PO QID PRN (Reason: anxiety) Qty: 120 0RF multivitamin Tablet 1 tab PO DAILY 0RF Protonix 40 mg tablet,delayed release (DR/EC) 40 mg PO DAILY 30 Days Qty: 30 3RF Discharge Orders: Discharge ED (Routine); Ordered 12/28/21 Ordered By: Raleigh Loera Referrals: Jonna Brenner DO [Primary Care Provider] - Discharge Diet: Advance as tolerated Discharge Activity: Increase activity as tolerated Patient Instructions: Abdominal Pain (ED) Activity Restrictions/Additional Instructions: Home and rest. Drink plenty of fluids. Use acetaminophen or ibuprofen as needed for pain. Activity as tolerated. Start with a clear liquid diet and advance slowly until the abdominal pain resolves. Follow-up with primary care in 3 days for recheck. Return to ER for high fever greater than 100.4, blood in vomit or stool, or new concerns. Coding Level of Care Code ED Casino Floor Supervisor for Chg Fwd Exam Comprehensive Documented by User: Gamal Thomas DO 12/28/21 01:26 HPI - Female Genitourinary General: Chief complaint: Urogenital-Female Stated complaint: L side sore Time Seen by Provider: 12/27/21 21:42 PFSH ED PFSH: Medical History Anxiety and depression PTSD---diagnosed in 2010---managed by [facility]-she sees Dr. Lu every 2 months. History of seizure Diagnosed in 2017 and per patient they were found to be new distress. Has not had any symptoms or seizures since 2019. No pertinent past medical history Denies diabetes, hypertension, DVT/PE PCP: Dr. Brenner CRISELDA (obstructive sleep apnea) Diagnosed in 2020 and is getting fitted for CPAP in May 2021. Surgical History History of bilateral tubal ligation (06/04/16) LTF, right salpingectomy. Performed by Dr. Jama at [facility] in [place], [place]. 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 Appendectomy performed by Dr. Cota. -----> pathology showed----> Infarcted leiomyoma with reactive changes. Adherent to distal end of fallopian tube; Benign appendix. History of cholecystectomy (~2011) Laparoscopic. S/P laparoscopic appendectomy (06/04/16) Performed at time of sterilization. Performed by Dr. Cota at [facility] in [place], [place] Family History Family/Other Thyroid disease paternal aunt Grandmother Thyroid disease paternal Breast cancer maternal, diagnosed in her 40s Ovarian cancer paternal, diagosed in her 40s Diabetes maternal, paternal Hypertension maternal and paternal Heart disease maternal Grandfather Diabetes maternal, paternal Hypertension maternal and paternal Stroke paternal Heart disease paternal Father Hypertension Stroke Mother Hypertension Denies family history of Colon cancer Hyperlipidemia Uterine cancer Social History Smoking and tobacco status: former smoker Second hand smoke exposure: No Alcohol intake: never Course Vital Signs: Vital signs: Vital Signs Temperature 98.1 F 12/27/21 21:22 Pulse Rate 84 12/27/21 21:22 Respiratory Rate 18 12/28/21 00:27 Blood Pressure 127/87 12/27/21 21:22 Pulse Oximetry 100 12/27/21 21:22 MDM - Female Medical Decision Making 36-year-old female comes in today with complaints of left flank pain radiating to the left abdomen. On exam patient has some left lower abdominal tenderness on palpation and left flank tenderness on percussion. Respirations are even lungs are clear to auscultation. No edema is noted in the extremities. Vital signs are normal. Differential diagnosis includes but not limited to diverticulitis, renal calculi, urinary tract infection. Laboratory values were unremarkable. Urinalysis did not show any significant abnormalities. CT of the abdomen and pelvis showed no acute abnormalities. Patient was given 4 mg of morphine IV and 4 mg of Zofran IV for nausea and abdominal pain. Patient was encouraged to drink plenty of fluids and stay on the clear liquid diet for the next 24 hours then increase as tolerated. Recommended patient monitoring for worsening symptoms and return as needed. Patient stated understanding and agreed to plan. This patient was originally seen by GEMMA Cooper.? I agree with his history, evaluation, and treatment. Lab Data : 12/27/21 22:40 12/27/21 22:40 Radiology Impressions Abdomen/Pelvis CT 12/27/21 22:07 IMPRESSION: No acute abnormality demonstrated in the abdomen and pelvis. Laboratory Results WBC 8.7 10^3/uL (4.0-10.0) 12/27/21 22:40 RBC 4.60 10^6/uL (4.1-5.3) 12/27/21 22:40 Hgb 13.5 g/dL (11.5-15.3) 12/27/21:40 Hct 39.3 % (37.0-47.0) 12/27/21:40 MCV 85.4 fl (81-99) 12/27/21:40 MCH 29.3 pg (28.0-34.0) 12/27/21:40 MCHC 34.4 g/dL (30.0-36.0) 12/27/21 22:40 RDW 13.8 % (12.1-15.1) 12/27/21:40 Plt Count 286 10^3/cmm (130-400) 12/27/21:40 MPV 11.9 fL (7.4-10.4) H 12/27/21 22:40 Neut % (Auto) 57.5 % 12/27/21 22:40 Lymph % (Auto) 34.6 % 12/27/21:40 [place] % (Auto) 5.9 % 12/27/21 22:40 Eos % (Auto) 1.5 % 12/27/21 22:40 Baso % (Auto) 0.3 % 12/27/21:40 Neut # (Auto) 4.98 10^3/uL (1.8-7.7) 12/27/21 22:40 Lymph # (Auto) 3.0 10^3/uL (0.8-4.8) 12/27/21:40 [place] # (Auto) 0.5 10^3/uL (0.2-0.9) 12/27/21 22:40 Eos # (Auto) 0.1 10^3/uL (0.0-0.8) 12/27/21:40 Baso # (Auto) 0.0 10^3/uL (0.0-0.1) 12/27/21:40 Nucleated RBC % (auto) 0 % 12/27/21:40 Nucleated RBCs # 0.0 /100WBC 12/27/21:40 Sodium 138 mmol/L (136-145) 12/27/21:40 Potassium 3.4 mmol/L (3.5-5.1) L 12/27/21:40 Chloride 99 mmol/L (98-107) 12/27/21:40 Carbon Dioxide 28 mmol/L (22-29) 12/27/21:40 Anion Gap 14.4 (5-19) 12/27/21:40 BUN 13 mg/dL (6-20) 12/27/21:40 Creatinine 0.8 mg/dL (0.5-0.9) 12/27/21:40 GFR Calculation 80.3 mL/min (90-130) L 12/27/21:40 Glucose 104 mg/dL (65-115) 12/27/21 22:40 Calculated Osmolality 286 mOsm/kg (285-295) 12/27/21:40 Calcium 10.1 mg/dL (8.5-10.5) 12/27/21 22:40 Total Bilirubin 0.3 mg/dL (0.15-1.2) 12/27/21 22:40 AST 22 U/L (0-32) 12/27/21:40 ALT 30 U/L (0-33) 12/27/21 22:40 Alkaline Phosphatase 85 IU/L (35-105) 12/27/21 22:40 Total Protein 7.6 g/dL (6.6-8.7) 12/27/21 22:40 Albumin 4.4 g/dL (3.5-5.2) 12/27/21 22:40 Globulin 3.2 g/dL (1.3-4.6) 12/27/21 22:40 HCG, Qual Negative (Negative) 12/27/21:40 Urine Color Yellow (Yellow) 12/27/21 22:30 Urine Appearance Sl cloudy (CLEAR) A 12/27/21 22: Urine pH 5 (5-7) 12/27/21 22:30 Ur Specific [place] 1.025 (1.005-1.030) 12/27/21 22:30 Urine Protein Neg (Negative) 12/27/21 22:30 Urine Glucose (UA) Norm (Normal) 12/27/21 22:30 Urine Ketones 1+ (Negative) H 12/27/21 22:30 Urine Blood Neg (Negative) 12/27/21 22:30 Urine Nitrate Negative (Negative) 12/27/21 22:30 Urine Bilirubin Neg (Negative) 12/27/21 22:30 Urine Urobilinogen Norm mg/dL (Negative) 12/27/21 22:30 Ur Leukocyte Esterase Trace (Negative) H 12/27/21 22:30 Urine RBC 0-4 /hpf (0-2) H 12/27/21 22:30 Urine WBC 0-4 /hpf (0-5) H 12/27/21 22:30 Ur Squamous Epith Cells 25-40 /hpf (0-5) H 12/27/21 22:30 Amorphous Sediment Not Reportable 12/27/21:30 Urine Bacteria 4+ /hpf (NONE) H 12/27/21 22:30 Discharge Plan Discharge Patient Disposition: Home Clinical Impression: Abdominal pain Qualifiers: Abdominal location: left lower quadrant Qualified Code(s): R10.32 - Left lower quadrant pain Condition: Stable Prescriptions: No Action duloxetine [Cymbalta] 30 mg capsule,delayed release(DR/EC) 30 mg PO DAILY Qty: 30 2RF meloxicam [Mobic] 15 mg tablet 15 mg PO DAILY 0RF Hold Instructions: Resume on 11/19/21. clobetasol 0.05 % cream 1 applic topical .three times weekly PRN (Reason: vulva lesion) Qty: 15 0RF Victoza 2-Kai 0.6 mg/0.1 mL (18 mg/3 mL) pen injector 0.6 mg SUBCUT DAILY Qty: 6 0RF Rx Instructions: 340 B Please dispense needle tips as well (DME) AUTO-TITRATING CPAP See Rx Instructions .Route .MEDSUPPLY Qty: 1 0RF Rx Instructions: SETTING IS 8-12CM tizanidine 2 mg tablet 2 mg PO BID PRN (Reason: muscle spasticity) 30 Days Qty: 60 2RF hydroxyzine HCl 25 mg tablet 25 mg PO QID PRN (Reason: anxiety) Qty: 120 0RF multivitamin Tablet 1 tab PO DAILY 0RF Protonix 40 mg tablet,delayed release (DR/EC) 40 mg PO DAILY 30 Days Qty: 30 3RF Discharge Orders: Discharge ED (Routine); Ordered 12/28/21 Ordered By: Raleigh Loera Referrals: Jonna Brenner DO [Primary Care Provider] - Discharge Diet: Advance as tolerated Discharge Activity: Increase activity as tolerated Patient Instructions: Abdominal Pain (ED) Activity Restrictions/Additional Instructions: Home and rest. Drink plenty of fluids. Use acetaminophen or ibuprofen as needed for pain. Activity as tolerated. Start with a clear liquid diet and advance slowly until the abdominal pain resolves. Follow-up with primary care in 3 days for recheck. Return to ER for high fever greater than 100.4, blood in vomit or stool, or new concerns. Coding Level of Care Code ED Casino Floor Supervisor for Génesisg Fwd Exam Comprehensive
--- NOTE | 2021-12-27 22:07 | CTR_ITS ---
PROCEDURE INFORMATION: Exam: CT Abdomen And Pelvis With Contrast Exam date and time: 12/27/2021 11:18 PM Age: 36 years old Clinical indication: Abdominal pain; Left; Prior surgery; Surgery date: 6+ months; Surgery type: Gb, appy, tubal; Patient HX: C/O L flank pain radiating around to abd; Additional info: Left flank pain radiating to abd TECHNIQUE: Imaging protocol: Computed tomography of the abdomen and pelvis with contrast. Radiation optimization: All CT scans at this facility use at least one of these dose optimization techniques: automated exposure control; mA and/or kV adjustment per patient size (includes targeted exams where dose is matched to clinical indication); or iterative reconstruction. Contrast material: OMNI 300; Contrast volume: 95 ml; Contrast route: INTRAVENOUS (IV); COMPARISON: CT abdomen pelvis w con* [id number] 07/19/2021 11:59 AM RADIATION DOSE METRICS: Total DLP (mGy-cm): 1786.72 FINDINGS: Lungs: The lung bases appear unremarkable. Liver: The liver is unremarkable in appearance. Gallbladder and bile ducts: No calcified gallstones in the gallbladder. No gallbladder wall thickening. No pericholecystic fluid. No biliary dilatation. Pancreas: The pancreas is normal in appearance. No pancreatic duct dilatation. Spleen: The spleen is normal in size and appearance. Adrenal glands: The adrenal glands appear within normal limits. Kidneys and ureters: The kidneys are normal in morphology. No hydronephrosis. No solid mass. Stomach and bowel: No acute gastric abnormality demonstrated. The small bowel is unremarkable as demonstrated. No acute abnormality/inflammatory change of the colon. Appendix: Postop changes near the cecum, consistent with appendectomy. Intraperitoneal space: No pneumoperitoneum. No significant fluid collection. Vasculature: No abdominal aortic aneurysm. Lymph nodes: No pathologically enlarged lymph nodes. Urinary bladder: Unremarkable as visualized. Reproductive: Uterus and adnexa are unremarkable. Bones/joints: No fracture or other acute osseous abnormality. Soft tissues: Unremarkable. CT/CT abdomen pelvis w con* [id number] IMPRESSION: No acute abnormality demonstrated in the abdomen and pelvis.
[2021-12-27 22:57] LABS: Basophils % 0.3 %; Eosinophils # 0.1 10^3/uL (0.0-0.8); Eosinophils % 1.5 %; Hematocrit 39.3 % (37.0-47.0); Hemoglobin 13.5 g/dL (11.5-15.3); Lymphocytes % 34.6 %; Mean Corpuscular HGB Conc 34.4 g/dL (30.0-36.0); Mean Corpuscular Hemoglobin 29.3 pg (28.0-34.0); Mean Corpuscular Volume 85.4 fl (81-99); Mean Platelet Volume 11.9 fL (7.4-10.4); Monocytes # 0.5 10^3/uL (0.2-0.9); Monocytes % 5.9 %; Neutrophils # 4.98 10^3/uL (1.8-7.7); Neutrophils % 57.5 %; Nucleated Red Blood Cells % 0 %; Platelet Count 286 10^3/cmm (130-400); Red Cell Distribution Width 13.8 % (12.1-15.1); White Blood Count 8.7 10^3/uL (4.0-10.0)
[2021-12-27 23:05] LABS: HCG, Serum Qual Negative (Negative)
[2021-12-27 23:14] LABS: Alanine Aminotransferase 30 U/L (0-33); Albumin Level 4.4 g/dL (3.5-5.2); Alkaline Phosphatase 85 IU/L (35-105); Anion Gap 14.4 (5-19); Aspartate Amino Transferase 22 U/L (0-32); Blood Urea Nitrogen 13 mg/dL (6-20); Calcium 10.1 mg/dL (8.5-10.5); Carbon Dioxide 28 mmol/L (22-29); Chloride 99 mmol/L (98-107); Globulin 3.2 g/dL (1.3-4.6); Glomerular Filtration Rate 80.3 mL/min (90-130); Glucose 104 mg/dL (65-115); Osmolality Calculated 286 mOsm/kg (285-295); Potassium 3.4 mmol/L (3.5-5.1); Sodium 138 mmol/L (136-145); Total Bilirubin 0.3 mg/dL (0.15-1.2); Total Protein 7.6 g/dL (6.6-8.7)
[2021-12-27] MEDS: iohexol 300 mg/mL 100 mL Btl IV (23:16)
[2021-12-27 23:42] LABS: Add Urine Microscopic? YES; Bilirubin Urine Neg (Negative); Blood Urine Neg (Negative); Glucose Urine UA Norm (Normal); Ketones Urine 1+ (Negative); Leukocyte Esterase Urine Trace (Negative); Nitrate Urine Negative (Negative); Protein Urine Neg (Negative); Specific Gravity, Urine 1.025 (1.005-1.030); Urine Color Yellow (Yellow); Urobilinogen Urine Norm (Negative); pH Urine 5 (5-7)
[2021-12-27 23:43] LABS: Add Urine Culture? No; Bacteria Urine 4+ /hpf; RBC Urine 0-4 /hpf (0-2); Squamous Epithelial Cell Urine 25-40 /hpf (0-5); WBC Urine 0-4 /hpf (0-5)
[2021-12-28 00:27] VITALS: RESP 18
[2021-12-28] MEDS: morphine 4 mg/mL SDV 1 mL IVP (00:27)
[2021-12-28] MEDS: ondansetron 2 mg/ML SDV 2 mL 4 MG IVP (00:28)
[2021-12-28] MEDS: sodium chloride 0.9% 500 ML 999 ML IV (00:35)
[2021-12-28] MEDS: lidocaine 2% viscous 15 ML, aluminum-mag hydrox-simethicon 30 ML, sucralfate oral liq 1 GM PO (01:09)
[2021-12-28 01:50] VITALS: BP 124/78; PULSE 74; RESP 16; O2SAT 94
== END 2021-12-28 01:51 | disposition home or self-care (01) ==
PROVIDERS: Emergency Provider Nurse Practitioner Family; PCP Family Medicine
DX: R10.32 Left lower quadrant pain (principal); Z87.891 Personal history of nicotine dependence
CPT/HCPCS: 74177; 80053; 81001; 84703; 85025; 96361; 96374; 96375; 99283; J2270; J2405; J7040; Q9967

== ENCOUNTER → 2022-01-01 11:00 | Outpatient (BNVA) | payer BC, MEDICAID, SELFPAY | PROVIDERS: PCP Family Medicine; Visit Provider Psychiatry & Neurology Psychiatry | DX: F41.1 Generalized anxiety disorder (principal); F43.12 Post-traumatic stress disorder, chronic; J10.1 Influenza due to other identified influenza virus with other respiratory manifestations | CPT/HCPCS: 99214 ==

== ENCOUNTER → 2022-01-10 13:47 | Outpatient (BNVA) | payer BC, MEDICAID, SELFPAY | PROVIDERS: PCP Family Medicine; Visit Provider Family Medicine | DX: Z13.6 Encounter for screening for cardiovascular disorders (principal); Z01.89 Encounter for other specified special examinations; Z79.899 Other long term (current) drug therapy | CPT/HCPCS: 80061; 83036 ==

== ENCOUNTER → 2022-01-14 14:39 | Outpatient (BNVA) | payer BC, MEDICAID, SELFPAY | PROVIDERS: PCP Family Medicine; Referring Provider Obstetrics & Gynecology; Visit Provider Obstetrics & Gynecology | DX: N39.3 Stress incontinence (female) (male) (principal) | CPT/HCPCS: 81000 ==

== ENCOUNTER 2022-01-30 22:02 | Emergency (ER) | payer BC, MEDICAID, SELFPAY ==
[2022-01-30 22:29] VITALS: BP 116/79; PULSE 76; RESP 14; TEMP 36.7; O2SAT 99; BMI 47.7
--- NOTE | 2022-01-30 22:36 | W.ED.ANIMALB ---
HPI - Animal Bite General: Chief Complaint: Animal Bite Stated Complaint: dog bite Time Seen by Provider: 01/30/22 22:36 History of Present Illness: 36-year-old female comes in today for injury to the right inner wrist. Patient reports she was walking with her son on the sidewalk about an hour prior to arrival. I dog came out of the brush jumping up on her son when she pushed it away the dog bit at her coming into contact and biting her right wrist. Patient has a superficial puncture wound to the right wrist. No significant depth was noted to the wound. Patient cannot recall her last tetanus. The dog was a stray or unknown to the patient. Associated symptoms: Deny fever(s) Review of Systems General: Reports: 10 or more systems reviewed and unremarkable except in HPI and below Const: Denies: fever(s) Card: Denies: chest pain Resp: Denies: dyspnea Skin/Breast: Reports: new lesions [facility] ED PFSH: Medical History Anxiety and depression PTSD---diagnosed in 2010---managed by [facility]-she sees Dr. Lu every 2 months. History of seizure Diagnosed in 2017 and per patient they were found to be new distress. Has not had any symptoms or seizures since 2019. No pertinent past medical history Denies diabetes, hypertension, DVT/PE PCP: Dr. Brenner CRISELDA (obstructive sleep apnea) Diagnosed in 2020 and is getting fitted for CPAP in May 2021. Surgical History History of bilateral tubal ligation (06/04/16) LTF, right salpingectomy. Performed by Dr. Jama at [facility] in [place], [place]. 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 Appendectomy performed by Dr. Cota. -----> pathology showed----> Infarcted leiomyoma with reactive changes. Adherent to distal end of fallopian tube; Benign appendix. History of cholecystectomy (~2011) Laparoscopic. S/P laparoscopic appendectomy (06/04/16) Performed at time of sterilization. Performed by Dr. Cota at [facility] in [place], [place] Family History Family/Other Thyroid disease paternal aunt Grandmother Thyroid disease paternal Breast cancer maternal, diagnosed in her 40s Ovarian cancer paternal, diagosed in her 40s Diabetes maternal, paternal Hypertension maternal and paternal Heart disease maternal Grandfather Diabetes maternal, paternal Hypertension maternal and paternal Stroke paternal Heart disease paternal Father Hypertension Stroke Mother Hypertension Denies family history of Colon cancer Hyperlipidemia Uterine cancer Social History Smoking and tobacco status: former smoker Second hand smoke exposure: No Alcohol intake: never Female Reproductive History: Date of last menstrual period: 06/24/21 Physical Exam Const: COMMON NORMALS: no acute distress Neck/C-Spine: COMMON NORMALS: full ROM Resp: COMMON NORMALS: normal respiratory effort Cardio: COMMON NORMALS: regular rate RATE: regular rate Extremity: COMMON NORMALS: full ROM Skin: TRAUMA: abrasion (Abrasion to the right inner wrist.) Course Vital Signs: Vital signs: Vital Signs Temperature 98.0 F 01/30/22 22:29 Pulse Rate 76 01/30/22 22:29 Respiratory Rate 14 01/30/22 22:29 Blood Pressure 116/79 01/30/22 22:29 Pulse Oximetry 99 01/30/22 22:29 MDM - Animal Bite Medical Decision Making 36-year-old female comes in with dog bite to the right inner wrist. On exam there is an abrasion to the right inner wrist with no significant depth. Dog was unknown to patient and ran off after biting the patient. Differential diagnosis is need for prophylaxis antibiotic, need for prophylaxis tetanus, need for postexposure prophylaxis rabies vaccine. Patient be given Keflex due to skin injury and history of amoxicillin intolerance. Tetanus was updated. Patient was started on regimen of vaccine for prophylaxis rabies along with dosing of immunoglobulin. X-ray of the wrist indicated no foreign body or bony abnormality. Discharge Plan Discharge Patient Disposition: Home Clinical Impression: Dog bite Condition: Stable Prescriptions: New cephalexin 500 mg capsule 500 mg PO BID 7 Days Qty: 14 0RF No Action clobetasol 0.05 % cream 1 applic topical .three times weekly PRN (Reason: vulva lesion) Qty: 15 0RF oxybutynin chloride 5 mg tablet extended release 24hr 5 mg PO DAILY Qty: 30 0RF duloxetine [Cymbalta] 30 mg capsule,delayed release(DR/EC) 30 mg PO DAILY Qty: 30 2RF hydroxyzine HCl 25 mg tablet 25 mg PO QID PRN (Reason: anxiety) Qty: 120 2RF (DME) AUTO-TITRATING CPAP See Rx Instructions .Route .MEDSUPPLY Qty: 1 0RF Rx Instructions: SETTING IS 8-12CM tizanidine 2 mg tablet 2 mg PO BID PRN (Reason: muscle spasticity) 30 Days Qty: 60 2RF meloxicam 15 mg tablet 15 mg PO DAILY Qty: 30 0RF Victoza 2-Kai 0.6 mg/0.1 mL (18 mg/3 mL) pen injector 0.6 mg SUBCUT DAILY Qty: 6 0RF Rx Instructions: 340 B Please dispense needle tips as well multivitamin Tablet 1 tab PO DAILY 0RF Protonix 40 mg tablet,delayed release (DR/EC) 40 mg PO DAILY 30 Days Qty: 30 3RF Discharge Orders: Discharge ED (Routine); Ordered 01/30/22 Ordered By: Raleigh Loera Referrals: Jonna Brenner DO [Primary Care Provider] - Discharge Diet: Usual diet Discharge Activity: Increase activity as tolerated Patient Instructions: Animal Bite (ED), Rabies (ED) Activity Restrictions/Additional Instructions: Follow the instructions given by nurse for completion of the rabies postexposure prophylaxis vaccine plan. You will need to have all 4 injections of the vaccine to be covered from getting rabies. Use acetaminophen and ibuprofen for pain and fever. Drink plenty of water. Take antibiotics as directed. Follow-up with primary care as needed. Return to ER for new concerns. Coding Level of Care Code ED Vmware Administrator for Jamel Fwd Exam Detailed
--- NOTE | 2022-01-30 22:40 | XRR_ITS ---
PROCEDURE INFORMATION: Exam: XR Right Wrist Exam date and time: 01/30/2022 10:53 PM Age: 36 years old Clinical indication: Injury or trauma; Puncture; Right; Patient HX: Dog bite to anterior side of wrist centrally located around carpals. TECHNIQUE: Imaging protocol: XR Right wrist. Views: 3 or more views. COMPARISON: No relevant prior studies available. FINDINGS: Bones/joints: Normal. Soft tissues: Normal. XR/XR wrist RT min 3V* [id number] IMPRESSION: No acute findings.
--- NOTE | 2022-01-30 23:36 | PC.NURSE ---
[place] police dept notified of dog attack. Officer is being sent to ER for report
[2022-01-31] MEDS: cephALEXin 500 mg Capsule PO (00:29)
[2022-01-31] MEDS: tetanus-dipt-pertussis 0.5 mL SDV IM (00:30)
[2022-01-31] MEDS: rabies IG 300 unit/mL SDV 1 mL 900 UNIT XX (00:37)
[2022-01-31] MEDS: rabies vaccine 2.5 unit SDV IM (00:52)
[2022-01-31 01:36] VITALS: BP 117/84; PULSE 67; RESP 18; O2SAT 100
[2022-01-31 01:40] VITALS: BP 117/84; PULSE 67; RESP 18; O2SAT 100
--- NOTE | 2022-01-31 02:45 | PC.NURSE ---
0005 cleansed dog bite site to right inner wrist. Bleeding controlled
--- NOTE | 2022-01-31 02:46 | PC.NURSE ---
[id number] called for report of dog attack. Officer will be sent to ER
== END 2022-01-31 01:42 | disposition home or self-care (01) ==
PROVIDERS: Emergency Provider Nurse Practitioner Family; PCP Family Medicine
DX: S60.871A Other superficial bite of right wrist, initial encounter (principal); W54.0XXA Bitten by dog, initial encounter; Y92.480 Sidewalk as the place of occurrence of the external cause; Z23 Encounter for immunization
CPT/HCPCS: 73110; 90375; 90471; 90675; 90715; 96372; 99283

== ENCOUNTER → 2022-02-10 09:26 | Outpatient (BNVA) | payer BC, MEDICAID, SELFPAY | PROVIDERS: PCP Family Medicine; Visit Provider Obstetrics & Gynecology | DX: Z01.812 Encounter for preprocedural laboratory examination (principal); N39.46 Mixed incontinence | CPT/HCPCS: 36415; 80053; 81000; 81025; 85025; 86850; 86900 ==

== ENCOUNTER 2022-02-12 12:26 | Observation (INO) | payer BC, MEDICAID, SELFPAY ==
[2022-02-11 10:30] VITALS: BMI 47.6
--- NOTE | 2022-02-11 13:40 | P.ANESASSM_ITS ---
Pre-Anesthetic Assessment Height/Weight: Height 1.55 m Weight 114.305 kg Preop Diagnosis: Epigastric pain Operation Date: 02/12/22 09:45 Proposed Procedures p Sling incision sling 21923/mixed incontinence N39.46(Not Applicable) - José Luis Obando MD Familial anesthetic complications: none Was Beta Alexis taken within 24 hours: N/A Was Clonidine taken within 24 hours: N/A Social No alcohol and No tobacco Exam alert, oriented x 3, clear to auscultation bilaterally and regular rate & rhythm Airway Submandibular: within normal limits Cervical ROM: within normal limits Mallampati: Class II Dentition: chipped History/ROS No significant complaints Pulmonary Exertional Dyspnea and Sleep Apnea (USES CPAP) CV/HEM None reported METS = 4 Stress incontinence Hepatic None reported GI Gastroesophageal Reflux Disease Gastritis Metabolic Morbid Obesity [facility] TMJ Neuropsych Anxiety and Depression PTSD Anesthetic Plan ASA status: 3 (36 year old morbidly obese female with hx of CRISELDA using CPAP, GERD) Anesthesia: Anesthesia Evaluation Other: We discussed risk and benefits of general anesthesia including PONV, sore throat (sometimes severe), corneal abrasion, positioning and peripheral nerve injuries, life threatening allergic reaction, post operative ICU admission requiring prolonged intubation, stroke, heart attack, , and rare incidences of recall. Patient consents to proceed with general anesthesia. Risk of > 500 ml blood loss (7ml/kg in children): No Medications/Allergies Home Medications Medication Instructions Recorded Confirmed Last Taken Type multivitamin 1 tab PO DAILY 11/30/20 02/11/22 11/13/21 History AUTO-TITRATING CPAP #1 ea 05/27/21 02/10/22 Unknown Rx tizanidine 2 mg tablet 2 mg PO BID PRN 30 Days #60 tab 11/04/21 02/11/22 0 11/13/21 Rx clobetasol 0.05 % topical cream 1 applic TOPICAL .three times 11/05/21 02/11/22 Unknown Rx weekly PRN #15 g pantoprazole 40 mg tablet,delayed 40 mg PO DAILY 30 Days #30 tab 11/14/21 02/11/22 Unknown Rx release (Protonix) hydroxyzine HCl 25 mg tablet 25 mg PO QID PRN #120 tab 01/01/22 02/11/22 Unknown Rx oxybutynin chloride 5 mg 5 mg PO DAILY #30 tab 01/14/22 02/11/22 Unknown Rx tablet,extended release 24 hr liraglutide 0.6 mg/0.1 mL (18 mg/3 0.6 mg (0.1 mL) SUBCUT DAILY #6 ml 02/04/22 02/11/22 Unknown Rx mL) subcutaneous pen injector (Victoza 2-Kai) duloxetine 30 mg capsule,delayed 30 mg PO BEDTIME 02/11/22 02/11/22 Unknown History release (Cymbalta) meloxicam 15 mg tablet 15 mg PO DAILY PRN 02/11/22 02/11/22 Unknown History Allergies Allergy/AdvReac Type Severity Reaction Status Date / Time sumatriptan [From Imitrex] Allergy Intermediate ADR-Muscle Verified 02/10/22 08:49 Pain amoxicillin AdvReac Intermediate nausea and Verified 02/10/22 08:49 vomiting---can take Penicillin, Keflex lithium AdvReac Intermediate Nausea,Confusion, Verified 02/10/22 08:49 Headache [facility] Anesthesia Medical History Anxiety and depression PTSD---diagnosed in 2010---managed by [facility]-she sees Dr. Lu every 2 months. History of seizure Diagnosed in 2017 and per patient they were found to be new distress. Has not had any symptoms or seizures since 2019. No pertinent past medical history Denies diabetes, hypertension, DVT/PE PCP: Dr. Brenner CRISELDA (obstructive sleep apnea) Diagnosed in 2020 and is getting fitted for CPAP in May 2021. Surgical History History of bilateral tubal ligation (06/04/16) LTF, right salpingectomy. Performed by Dr. Jama at [facility] in [place], [place]. 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 Appendectomy performed by Dr. Cota. -----> pathology showed----> Infarcted leiomyoma with reactive changes. Adherent to distal end of fallopian tube; Benign appendix. History of cholecystectomy (~2011) Laparoscopic. S/P laparoscopic appendectomy (06/04/16) Performed at time of sterilization. Performed by Dr. Cota at [facility] in [place], [place] Family History Family/Other Thyroid disease paternal aunt Grandmother Thyroid disease paternal Breast cancer maternal, diagnosed in her 40s Ovarian cancer paternal, diagosed in her 40s Diabetes maternal, paternal Hypertension maternal and paternal Heart disease maternal Grandfather Diabetes maternal, paternal Hypertension maternal and paternal Stroke paternal Heart disease paternal Father Hypertension Stroke Mother Hypertension Denies family history of Colon cancer Hyperlipidemia Uterine cancer Social History Smoking and tobacco status: former smoker Second hand smoke exposure: No Alcohol intake: never Female Reproductive History Date of last menstrual period: 01/21/22 Data Anesthesia Cardiac Studies: Echocardiogram Ultrasound 03/12/21 Cardiac Event Monitor 09/25/20
[2022-02-12] VITALS (13 sets, daily range): BP systolic 98–132; BP diastolic 62–79; PULSE 56–97; RESP 15–25; TEMP 36.2–36.8; O2SAT 90–100
[2022-02-12] MEDS: sodium chloride 0.9% 500 ML IV (10:41)
[2022-02-12] MEDS: scopolamine 1.5 Patch 1 PATCH TRANSDERMA (10:42)
--- NOTE | 2022-02-12 10:49 | P.ANESUD_ITS ---
Pre-Anesthetic Update Pre-Anesthetic Assessment: Date of Surgery/Procedure: 02/12/22 Preop Trudy gnosis: Epigastric pain Proposed Procedure: Operation Date: 02/12/22 11:35 Proposed Procedures p Sling incision sling 05132/mixed incontinence N39.46(Not Applicable) - José Luis Obando MD Any changes to Pre-Anesthetic Assessment?: No Last Intake: Intake Last Liquid Date 02/11/22 Last Liquid Time 20:00 Last Solid Date 02/11/22 Last Solid Time 19:00 Vitals: Temperature 97.1 F L 02/12/22 10:14 Temperature Source Temporal Artery S can 02/12/22 10:14 Pulse Rate 65 02/12/22 10:14 Respiratory Rate 18 02/12/22 10:14 Blood Pressure 126/76 02/12/22 10:14 Blood Pressure Neisha n 92 02/12/22 10:14 Pulse Oximetry 96 02/12/22 10:14 Oxygen Delivery Me thod 02/12/22 10:24 Exam: Pre-Anes Outpt Exam: alert, oriented x 3, clear to auscultation bilaterally and regular rate & rhythm Cardiac Studies: Echocardiogram Ultrasound 03/12/21 Cardiac Event Monitor 09/25/20
[2022-02-12] MEDS: sodium chloride 0.9% 1,000 ML 30 ML IV (11:05)
[2022-02-12 11:34] LABS: OR HCG Qualitative Urine Negative (Negative)
--- NOTE | 2022-02-12 11:42 | W.PM.OPSUD ---
Surgery/Procedure H&P Update DATE OF PROCEDURE: February 12, 2022 DATE H&P PERFORMED: 02/10/22 H&P UPDATE INFORMATION: I have reviewed H&P completed within last 30 days, I have examined patient prior to procedure and No changes to prior documentation PREOP DIAGNOSIS: Epigastric pain PLANNED PROCEDURE: Operation Date: 02/12/22 11:35 Proposed Procedures p Sling incision sling 26878/mixed incontinence N39.46(Not Applicable) - José Luis Obando MD
--- NOTE | 2022-02-12 12:29 | PM.OP ---
Operative Report Date of procedure: February 12, 2022 Pre-op diagnosis: Preop Diagnosis urinary stress incontinence Post-op diagnosis: Same as above Post-op findings: Urethral hypermobility Procedure done: Single incision mid urethral sling Implants: Coloplast Altis sling Specimens removed/disposition: None Pathology: None Surgeon: José Luis Obando MD Estimated blood loss (mL): 5 IV fluids (mL): 500 Urine output (mL): 300 Complications: None Brief History: Mrs. Galloway 36-year-old female with stress urinary incontinence. Procedure: After obtaining informed consent, the patient was taken to the operating room and placed in the supine position, given general anesthesia, and prepped and draped in sterile fashion. The abdomen, vulva and vagina were prepped and draped in a sterile manner. A time out procedure was performed. The anterior vaginal mucosa beneath the midurethra was infiltrated with 0.5% Marcaine with epinephrine. A vertical midline incision was made beneath the midurethra, nearly 1.5 cm length. Careful submucosal dissection was performed bilaterally up to the interior portion of the inferior pubic ramus. The insertion of adductor longus tendon on the patient?s pubic ramus was identified as reference land gayle. Palpated the notch along the internal edge of ischiopubic ramus where the adductor longus tendon and the inferior pubic ramus meet. The Altis single incision sling (SIS) was selected. Then the needle of the SIS inserted aiming at the location of this notch. One of the integrated self-fixating tips place onto the needle by sliding it over the end of the needle. The needle/sling assembly was inserted toward the location of identified reference notch making sure that the flat of the handle is perpendicular to the desired path. The needle was tracked along the posterior surface of the ischiopubic ramus until the midline gayle on the mesh is approximately at the midline position under the urethra. The needle was removed and the same was repeated on the contralateral side until the appropriate sling tension under the urethra was achieved ensuring that the mesh lays flat. The needle was removed and vaginal incision was closed in a running interlocking fashion with 2-0 Vicryl. The Ybarra catheter was noted with clear yellow urine. Excellent hemostasis was obtained. Sponge, lap, needle, and instrument counts were correct times three. The patient was taken to the recovery room, awake and in stable condition.
--- NOTE | 2022-02-12 12:45 | SUR.PHASEI ---
1238 PT TO PACU 5 , PT AWAKES FROWNS, MOANS, PT VERBALLY STATES ( IT HURTS) SEE PAIN MED GIVEN BY FACULTY RESEARCH ASSISTANT AT BEDSIDE. IV TO RT HAND #20 WITH NS 300ML UP AT MOD RATE PER GRAVITY, PT WITH CORONA CATHETER ,STAT LOCK TO RT INNER THIGH, CLEAR YELLOW URINE NOTED TO TUBING AND BAG, ID BRACELET TO LT WRIST, PT ID'D WITH 2 IDENTIFIERS, WARM BLANKETS TO PT. ABDOMEN SOFT ,IZZY PAD D/I , BILAT SCDS ON AND WORKING.
--- NOTE | 2022-02-12 13:07 | SUR.PHASEI ---
PT AWAKES TO VOICE, DENIES PAIN, PT TAKING OCC ICE CHIPS, SATS 90-91% ON RA PT NOW ON 3LNC SATS 1005
[2022-02-12] MEDS: dextrose 5%-lactated ringers 1,000 ML 125 ML IV ×2 (14:35→22:38)
[2022-02-12] MEDS: ketorolac 30 mg/mL INJ IVP ×2 (14:35→20:15)
--- NOTE | 2022-02-12 17:06 | ANE.PACU2 ---
Inpatient post-anesthesia follow up: Airway intact: Yes Vital signs: Temperature 97.8 F Pulse Rate 69 Respiratory Rate 17 Blood Pressure 120/66 Pulse Oximetry 100 Oxygen Delivery Me thod Room Air Oxygen Flow Rate 3 Fraction of Inspir ed Oxygen Hydration adequate: Yes Nausea and vomiting: No Pain level: 2 Mental status: Baseline
[2022-02-12] MEDS: docusate sodium 100 mg Capsule PO (17:46)
[2022-02-12] MEDS: duloxetine 30 mg Capsule PO (21:39)
[2022-02-12] MEDS: hyDROXYzine 25 mg Capsule PO (21:39)
[2022-02-13] VITALS: BP 129/83; PULSE 80; RESP 17; TEMP 36.7; O2SAT 97
[2022-02-13] MEDS: ketorolac 30 mg/mL INJ IVP ×2 (02:36→08:26)
[2022-02-13 05:00] VITALS: BP 114/75; PULSE 74; TEMP 36.7; O2SAT 96
[2022-02-13 05:35] LABS: Hematocrit 34.7 % (37.0-47.0); Hemoglobin 11.5 g/dL (11.5-15.3); Mean Corpuscular HGB Conc 33.1 g/dL (30.0-36.0); Mean Corpuscular Hemoglobin 29.3 pg (28.0-34.0); Mean Corpuscular Volume 88.3 fl (81-99); Mean Platelet Volume 11.7 fL (7.4-10.4); Platelet Count 255 10^3/cmm (130-400); Red Blood Count 3.93 10^6/uL (4.1-5.3); Red Cell Distribution Width 13.8 % (12.1-15.1); White Blood Count 10.4 10^3/uL (4.0-10.0)
--- NOTE | 2022-02-13 07:30 | PC.NURSE ---
Patient has 300 ml out of clear yellow urine. Residual scan of 98 ml.
--- NOTE | 2022-02-13 07:37 | PM.OBGYDC ---
Discharge Providers CHANGE MANAGEMENT ANALYST Date of Admission: 02/12/22 12:26 Date of Discharge: 02/13/22 Attending Provider at Admission: José Luis Obando MD Attending Provider at Discharge: José Luis Obando MD Primary CHANGE MANAGEMENT ANALYST: José Luis Obando MD Primary Care Provider: Jonna Brenner DO Diagnoses at Discharge Discharge Diagnosis (1) Mixed incontinence urge and stress: Status: Acute Reason for Visit Reason for Visit: mixed incontinence N39.46 Brief History: Mrs. Powell 36-year-old female with a history of mixed urinary incontinence treated with oxybutynin for the urge component of incontinence. Hospital Course Hospital Course Mrs. Powell 36-year-old female with a history of urge incontinence admitted for single incision mid urethral sling. That mid urethral sling procedure was performed without complications. Postop overnight observation uneventful. She is afebrile and hemodynamically stable postoperative day 1. Tolerating diet well. Ambulating without difficulty. Pain well under control. Physical Exam Narrative: GA: Alert and oriented ?3. HEENT: WNL. Heart: Regular rate and rhythm. Lungs: Clear to auscultation bilaterally. Abdomen: Bowel sounds present, nontender HEAVY DUTY CUSTODIAN: spotting bleeding. Extremities: No edema, no cyanosis, no calves pain. Urinary Catheter Management: Ybarra: Cath Placed During This Visit: yes, but has since been removed by the nurse Reason for Continuing Indwelling Catheter: Decision to DC Catheter Urinary Catheter Date of Insertion: 02/12/22 Urinary Catheter Time of Insertion: 12:08 Date Urinary Catheter Removed: 02/13/22 Time Urinary Catheter Discontinued: 05:15 History History History 3 Term 3 Miscarriages/Ectopic 0 0 Living Children 3 Discharge Data Studies Completed and Pending Laboratory Results WBC 10.4 10^3/uL (4.0-10.0) H 02/13/22 05:23 RBC 3.93 10^6/uL (4.1-5.3) L 02/13/22 05:23 Hgb 11.5 g/dL (11.5-15.3) 02/13/22 05:23 Hct 34.7 % (37.0-47.0) L 02/13/22 05:23 MCV 88.3 fl (81-99) 02/13/22 05:23 MCH 29.3 pg (28.0-34.0) 02/13/22 05:23 MCHC 33.1 g/dL (30.0-36.0) 02/13/22 05:23 RDW 13.8 % (12.1-15.1) 02/13/22 05:23 Plt Count 255 10^3/cmm (130-400) 02/13/22 05:23 MPV 11.7 fL (7.4-10.4) H 02/13/22 05:23 Urine HCG, Qual Negative (Negative) 02/12/22 11:31 Vitals Last Vital Signs Temp 98.0 F 02/13/22 05:00 Pulse 74 02/13/22 05:00 Resp 17 02/13/22 00:00 BP 114/75 02/13/22 05:00 Pulse Ox 96 02/13/22 05:00 Discharge Plan Discharge Patient Disposition: Home Condition: Stable Prescriptions: New hydrocodone-acetaminophen 5-325 mg tablet 1 tab PO Q4H PRN (Reason: pain) Qty: 10 0RF acetaminophen 325 mg capsule 325 mg PO Q4H PRN (Reason: fever or pain) Qty: 60 0RF ibuprofen 800 mg tablet 800 mg PO TID PRN (Reason: pain) Qty: 60 0RF Continued clobetasol 0.05 % cream 1 applic topical .three times weekly PRN (Reason: vulva lesion) Qty: 15 0RF oxybutynin chloride 5 mg tablet extended release 24hr 5 mg PO DAILY Qty: 30 0RF hydroxyzine HCl 25 mg tablet 25 mg PO QID PRN (Reason: anxiety) Qty: 120 2RF Victoza 2-Kai 0.6 mg/0.1 mL (18 mg/3 mL) pen injector 0.6 mg SUBCUT DAILY Qty: 6 0RF Rx Instructions: 340 B Please dispense needle tips as well (DME) AUTO-TITRATING CPAP See Rx Instructions .Route .MEDSUPPLY Qty: 1 0RF Rx Instructions: SETTING IS 8-12CM tizanidine 2 mg tablet 2 mg PO BID PRN (Reason: muscle spasticity) 30 Days Qty: 60 2RF multivitamin Tablet 1 tab PO DAILY 0RF pantoprazole [Protonix] 40 mg tablet,delayed release (DR/EC) 40 mg PO DAILY 30 Days Qty: 30 3RF meloxicam 15 mg tablet 15 mg PO DAILY PRN (Reason: Inflammation) 0RF duloxetine [Cymbalta] 30 mg capsule,delayed release(DR/EC) 30 mg PO BEDTIME 0RF Discharge Orders: Discharge Order (Routine); Ordered 02/13/22 Ordered By: José Luis Obando Referrals: José Luis Obando MD [Physician] - 2 weeks Discharge Diet: Advance as tolerated and Usual diet Discharge Activity: Limit activity as instructed Patient Instructions: Opioid Safety, Bladder Sling for Women (GEN) Stand Alone Forms: Work/School Release Discharge Attestations CHANGE MANAGEMENT ANALYST Time Spent in Discharge Care*: greater than 30 min Specific Discharge Activities: Specific discharge activities: educating patient Coding Level of Care Code Acute Certified Low Vision Therapist for g Fwd Diagnoses Mixed incontinence urge and stress N39.46
[2022-02-13] MEDS: pantoprazole DR 40 mg Tablet PO (08:23)
[2022-02-13] MEDS: oxybutynin chloride XL 5 MG TABLET PO (08:23)
[2022-02-13] MEDS: docusate sodium 100 mg Capsule PO (08:23)
--- NOTE | 2022-02-13 09:00 | PC.NURSE ---
Dr. Obando notified of patient voiding 200 with bladder scan residual of 82. Orders received for patient to discharge. SANDEEP BINGHAM
[2022-02-13 10:16] VITALS: BP 105/63; PULSE 68; RESP 17; TEMP 36.4; O2SAT 100
== END 2022-02-13 10:17 | disposition home or self-care (01) ==
LOC: OBGYN 12:27
PROVIDERS: Anesthesiology; Admitting Provider Obstetrics & Gynecology; PCP Family Medicine; Visit Provider Obstetrics & Gynecology
PROC: (CPT 57288; principal; 2022-02-12 11:25)
DX: N39.3 Stress incontinence (female) (male) (principal); G47.30 Sleep apnea, unspecified; E66.01 Morbid (severe) obesity due to excess calories; Z68.42 Body mass index [BMI] 45.0-49.9, adult; F41.9 Anxiety disorder, unspecified; F32.9 Major depressive disorder, single episode, unspecified; Z87.891 Personal history of nicotine dependence
CPT/HCPCS: 57288; 36415; 84703; 85027; 86900; C1713; G0378; J0690; J1100; J1200; J1885; J2405; J2704; J2710; J3010; J3490; J7030; J7040; Q9968

== ENCOUNTER 2022-02-17 11:32 | Emergency (ER) | payer BC, MEDICAID, SELFPAY ==
[2022-02-17] VITALS (10 sets, daily range): BP systolic 115–138; BP diastolic 70–100; PULSE 65–90; RESP 14–18; TEMP 36.4; O2SAT 96–100; BMI 50.3
[2022-02-17 12:15] LABS: Basophils % 0.3 %; Eosinophils # 0.2 10^3/uL (0.0-0.8); Hemoglobin 14.4 g/dL (11.5-15.3); Lymphocytes % 23.4 %; Mean Corpuscular HGB Conc 33.5 g/dL (30.0-36.0); Mean Corpuscular Hemoglobin 29.3 pg (28.0-34.0); Mean Corpuscular Volume 87.4 fl (81-99); Mean Platelet Volume 11.5 fL (7.4-10.4); Monocytes # 0.4 10^3/uL (0.2-0.9); Monocytes % 4.9 %; Neutrophils # 5.97 10^3/uL (1.8-7.7); Neutrophils % 69.1 %; Nucleated Red Blood Cells % 0 %; Platelet Count 275 10^3/cmm (130-400); Red Blood Count 4.92 10^6/uL (4.1-5.3); White Blood Count 8.6 10^3/uL (4.0-10.0)
--- NOTE | 2022-02-17 12:24 | XRR_ITS ---
PROCEDURE INFORMATION: Exam: XR Chest Exam date and time: 02/17/2022 12:41 PM Age: 36 years old Clinical indication: Chest pain/pressure since yesterday. TECHNIQUE: Imaging protocol: XR of the chest. Views: 1 view. COMPARISON: CR XR chest 1V portable [id number] 11/06/2021 3:34 PM FINDINGS: Lungs: Low lung volumes. Nodular density at the right base measuring 1 cm. No pulmonary consolidation. Pleural spaces: No pleural effusion. No pneumothorax. Heart/Mediastinum: The cardiac silhouette is grossly unchanged. No gross evidence of pneumomediastinum. Bones/joints: No gross fracture. XR/XR chest 1V portable [id number] IMPRESSION: 1. Nodular density at the right base measuring [address] chest to further assess. 2. Low lung volumes.
--- NOTE | 2022-02-17 12:24 | ECG_ITS ---
[facility] Test Date: 2022-02-17 Pat Name: Payton Galloway Department: Room: Gender: Female Unclaimed Property Manager: : 1985 Requested By: Mae Crooks Order Number: [id number] Caryl MD: Amanda Eid M.D. Measurements Intervals [place] Rate: 66 P: 13 OR: 159 QRS: 14 QRSD: 82 T: 9 QT: 386 QTc: 406 Interpretive Statements SINUS RHYTHM POSSIBLE ANTERIOR MYOCARDIAL INFARCTION , PROBABLY OLD [30 ms Q WAVE IN V3/V4, OR R < 0.2 mV IN V4] Compared to ECG 11/06/2021 15:23:57 No significant changes Electronically Signed On 02-17-2022 17:36:40 CDT by Amanda Eid M.D. [email or web address]
--- NOTE | 2022-02-17 12:28 | ED_ITS ---
HPI - General Adult General: Chief complaint: Abdominal Pain Stated complaint: Post surgery ABD Pain, Arm numbness, dizziness Time Seen by Provider: 02/17/22 11:59 History of Present Illness: Patient is a 36-year-old female who underwent recent single incision sling on 02/11/[address] Obando presenting to the emergency room 1 days of diffuse abdominal pain, nausea/vomiting and diarrhea, chest pain headache and blurriness of vision. Patient tells me that around 7 PM yesterday, she began experiencing all the symptoms. Patient denies any sick contacts around her. Patient denies any recent antibiotics use. Since 7pm yesterday night, patient has multiple episodes of liquid stool. Patient denies melena/hematochezia or urinary complaints since surgery. Patient is noted to have increased urinary output as expected she says from her surgery. Patient has yet to follow-up with Dr. Obando. Since 7 PM, patient also reports headache and visual blurriness. In addition, patient also reports left chest pressure with numbness going to the left arm which also started on 7 PM. Onset:1 day Duration:1 day Location:home Severity:moderate Associated symptoms: Reports chest pain, headache(s), nausea and vomiting; Deny dyspnea, rash or palpitations Review of Systems Const: Denies: fever(s) or chills Eyes: Denies: change in vision ENMT: Denies: mouth pain Card: Reports: chest pain and other; Denies: palpitations Resp: Denies: dyspnea or non-productive cough GI: Reports: abdominal pain, nausea, vomiting and diarrhea : Denies: dysuria Musc: Reports: other (+L arm numbness); Denies: extremity pain Skin/Breast: Denies: rash or new lesions Neuro: Reports: headache(s) and other (+bluriness of vision); Denies: weakness in extremities Psych: Reports: other (Normal mood) Kalyan/Lymph: Denies: easy bruising PFSH ED PFSH: Medical History Anxiety and depression PTSD---diagnosed in 2010---managed by [facility]-she sees Dr. Lu every 2 months. History of seizure Diagnosed in 2017 and per patient they were found to be new distress. Has not had any symptoms or seizures since 2019. No pertinent past medical history Denies diabetes, hypertension, DVT/PE PCP: Dr. Brenner CRISELDA (obstructive sleep apnea) Diagnosed in 2020 and is getting fitted for CPAP in May 2021. Surgical History History of bilateral tubal ligation (06/04/16) LTF, right salpingectomy. Per[place] by [place]. Jama at [facility] [place], [place]. 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 Appendectomy performed by Dr. Cota. -----> pathology showed----> Infarcted leiomyoma with reactive changes. Adherent to distal end of fallopian tube; Benign appendix. History of cholecystectomy (~2011) Laparoscopic. S/P laparoscopic appendectomy (06/04/16) Performed at time of sterilization. Performed by Dr. Cota at [facility] [place] in [place], [place] Family History Family/Other Thyroid disease paternal aunt Grandmother Thyroid disease paternal Breast cancer maternal, diagnosed in her 40s Ovarian cancer paternal, diagosed in her 40s Diabetes maternal, paternal Hypertension maternal and paternal Heart disease maternal Grandfather Diabetes maternal, paternal Hypertension maternal and paternal Stroke paternal Heart disease paternal Father Hypertension Stroke Mother Hypertension Denies family history of Colon cancer Hyperlipidemia Uterine cancer Social History Smoking and tobacco status: former smoker Second hand smoke exposure: No Alcohol intake: never Physical Exam Const: COMMON NORMALS: alert HENMT: COMMON NORMALS: atraumatic HEAD & SCALP: atraumatic MOUTH: moist mucous membranes not abnormal Eye: COMMON NORMALS: EOMs intact bilaterally and conjunctivae normal CONJUNCTIVA: Yes conjunctivae normal Neck/C-Spine: COMMON NORMALS: full ROM and supple Resp: COMMON NORMALS: normal respiratory effort and clear to auscultation bilaterally AUSCULTATION: clear to auscultation bilaterally Cardio: COMMON NORMALS: regular rate RATE: regular rate GI: COMMON NORMALS: Soft to palpation PALPATION: Yes Soft to palpation OTHER: + Mild upper abdominal tenderness to palpation. NO guarding rebound, guarding, rigidity. No CVA tenderness to percussion. Neg Solitario/Neg McBurney's point tenderness, no suprabupic tenderness to palpation. Extremity: COMMON NORMALS: full ROM Neuro: SENSORIUM/ORIENTATION: Yes alert MOTOR EXAM: No Abnormal motor strength present and Other motor observations present (no focal motor deficits) Psych: COMMON NORMALS: speech normal SPEECH: Yes normal speech MOOD & AFFECT: Yes euthymic mood Course Vital Signs: Vital signs: Vital Signs Temperature 97.5 F L 02/17/22 11:51 Pulse Rate 75 02/17/22 16:30 Respiratory Rate 14 02/17/22 13:30 Blood Pressure 120/100 02/17/22 16:30 Pulse Oximetry 97 02/17/22 16:30 MDM - General Adult Medical Decision Making 36-year-old female w/ recent single incision sling presenting to the emergency room with multiple complaints including diarrhea, generalized abdominal pain, nausea/vomiting, chest pain, headache and blurriness of vision. On physical exam, patient is hemodynamically stable. No upper abdominal tenderness palpation. No Solitario sign/guarding or rebound tenderness. Lab work showed white count 8.6. Patient has 20/30 vision in the left eye and 20/40 vision in the right eye. Do not suspect UTI based on lab work-up. CTA chest negative for any signs of PE. CT abdomen pelvis showed h epatosplenomegaly. Patient is noted to have enteritis. Patient received GI cocktail is now able to tolerate p.o. without any difficulty. Patient complained of headache however, patient reports symptoms of headache are improved with medications including Reglan, IVF. Given findings, do not suspect subarachnoid bleed, acute intracranial pathologies including IIH. Incidental findings of pulmonary nodule discussed extensively with patient. Patient received a copy of the CT report with the documented findings. Patient is instructed to follow up urgently PCP for repeat assessment in the near fu ture. Given new onset of vision changes, decision was made in conjunction patient to follow-up with ophthalmology for seen the morning. Patient has appointment with Dr. Williamson office first thing the morning for fundoscopic exam and further acuity evaluation. Rx tylenol PRN abd pain, maalox/pepcid PRN dyspepsia, and zofran PRN nausea/vomiting Disposition: Discharge. Patient counseled regarding diagnostic impression, treatment plan. Patient given ED strict return precautions to return for lindsey nuation, worsening, or development of new symptoms. Instructed to f/u w/ PCP regarding symptoms today. Patient verbalized understanding. Patient is given strict return precaution for any signs of dehydration, nausea vomiting, abdominal pain, worsening visual changes, diplopia, amaurosis fugax, or other new or concerning complaints. Lab Data : 02/17/22 12:10 02/17/22 12:10 Radiology Impressions Chest X-Ray 02/17/22 12:24 IMPRESSION: 1. Nodular density at the right base measuring [address] chest to further assess. 2. Low lung volumes. Chest CTA 02/17/22 13:39 IMPRESSION: 1. No evidence of pulmonary embolus. 2. No acute pulmonary infiltrates. 3. Partially visualized hepatomegaly and splenomegaly. Abdomen/Pelvis CT 02/17/22 15:35 IMPRESSION: 1. Mildly prominent fluid in the small bowel without dilation may reflect an enteritis. 2. Small amount of air in the urinary bladder may be iatrogenic. 3. Spleen enlarged to 15.5 cm, similar to prior exam. 4. Cholecystectomy. 5. Right ovary 4.5 cm cyst, likely follicular in nature. 6. Left ureter demonstrates several areas of non opacification without dilation, suggestive of peristalsis, if clinically indicated consider further evaluation with ureteroscopy. 7. Minimal diverticulosis without diverticulitis. Laboratory Results WBC 8.6 10^3/uL (4.0-10.0) 02/17/22 12:10 RBC 4.92 10^6/uL (4.1-5.3) 02/17/22 12:10 Hgb 14.4 g/dL (11.5-15.3) 02/17/22 12:10 Hct 43.0 % (37.0-47.0) 02/17/22 12:10 MCV 87.4 fl (81-99) 02/17/22 12:10 MCH 29.3 pg (28.0-34.0) 02/17/22 12:10 MCHC 33.5 g/dL (30.0-36.0) 02/17/22 12:10 RDW 14.0 % (12.1-15.1) 02/17/22 12:10 Plt Count 275 10^3/cmm (130-400) 02/17/22 12:10 MPV 11.5 fL (7.4-10.4) H 02/17/22 12:10 Neut % (Auto) 69.1 % 02/17/22 12:10 Lymph % (Auto) 23.4 % 02/17/22 12:10 [place] % (Auto) 4.9 % 02/17/22 12:10 Eos % (Auto) 2.0 % 02/17/22 12:10 Baso % (Auto) 0.3 % 02/17/22 12:10 Neut # (Auto) 5.97 10^3/uL (1.8-7.7) 02/17/22 12:10 Lymph # (Auto) 2.0 10^3/uL (0.8-4.8) 02/17/22 12:10 [place] # (Auto) 0.4 10^3/uL (0.2-0.9) 02/17/22 12:10 Eos # (Auto) 0.2 10^3/uL (0.0-0.8) 02/17/22 12:10 Baso # (Auto) 0.0 10^3/uL (0.0-0.1) 02/17/22 12:10 Nucleated RBC % (auto) 0 % 02/17/22 12:10 Nucleated RBCs # 0.0 /100WBC 02/17/22 12:10 D-Dimer 1.23 ug/mIFEU (0-0.59) H 02/17/22 12:45 Sodium 135 mmol/L (136-145) L 02/17/22 12:10 Potassium 3.8 mmol/L (3.5-5.1) 02/17/22 12:10 Chloride 95 mmol/L (98-107) L 02/17/22 12:10 Carbon Dioxide 28 mmol/L (22-29) 02/17/22 12:10 Anion Gap 15.8 (5-19) 02/17/22 12:10 BUN 9 mg/dL (6-20) 02/17/22 12:10 Creatinine 0.8 mg/dL (0.5-0.9) 02/17/22 12:10 GFR Calculation 80.3 mL/min (90-130) L 02/17/22 12:10 Glucose 97 mg/dL (65-115) 02/17/22 12:10 Calculated Osmolality 279 mOsm/kg (285-295) L 02/17/22 12:10 Calcium 10.3 mg/dL (8.5-10.5) 02/17/22 12:10 Total Bilirubin 0.8 mg/dL (0.15-1.2) 02/17/22 12:10 AST 29 U/L (0-32) 02/17/22 12:10 ALT 46 U/L (0-33) H 02/17/22 12:10 Alkaline Phosphatase 98 IU/L (35-105) 02/17/22 12:10 Troponin T Baseline 6 ng/L (0-10) 02/17/22 12:10 Troponin T 120 Minute 6.00 ng/L (0-10) 02/17/22 14:44 Delta Troponin T Not Reportable 02/17/22 14:44 Total Protein 8.6 g/dL (6.6-8.7) 02/17/22 12:10 Albumin 4.5 g/dL (3.5-5.2) 02/17/22 12:10 Globulin 4.1 g/dL (1.3-4.6) 02/17/22 12:10 Lipase 20 U/L (13-60) 02/17/22 12:10 Urine Color Yellow (Yellow) 02/17/22 13:10 Urine Appearance Cloudy (CLEAR) 02/17/22 13:10 Urine pH 6 (5-7) 02/17/22 13:10 Ur Specific [place] 1.015 (1.005-1.030) 02/17/22 13:10 Urine Protein Neg (Negative) 02/17/22 13:10 Urine Glucose (UA) Norm (Normal) 02/17/22 13:10 Urine Ketones Negative (Negative) 02/17/22 13:10 Urine Blood 3+ (Negative) H 02/17/22 13:10 Urine Nitrate Negative (Negative) 02/17/22 13:10 Urine Bilirubin Neg (Negative) 02/17/22 13:10 Urine Urobilinogen 1 mg/dL (Negative) H 02/17/22 13:10 Ur Leukocyte Esterase 2+ (Negative) H 02/17/22 13:10 Urine RBC 10-15 /hpf (0-2) H 02/17/22 13:10 Urine WBC 15-25 /hpf (0-5) H 02/17/22 13:10 Ur Squamous Epith Cells 5-10 /hpf (0-5) H 02/17/22 13:10 Amorphous Sediment Not Reportable 02/17/22 13:10 Urine Bacteria 3+ /hpf (NONE) H 02/17/22 13:10 Imaging Data Other Imaging: Radiologist's impression: [employer] [address] [place] [address] XRay Report Signed Patient: Payton Galloway Unit #: [id number] : 1985 Age/Sex: 36 / F ADM Date: 02/17/22 Loc: ER Room/Bed: Attending Dr: Ordering Provider/Ordering MD: Mae Crooks MD Date of Service: 02/17/22 Procedure(s): XR chest 1V portable [id number] Accession Number(s): [id number] Report Number: [id number] PROCEDURE INFORMATION: Exam: XR Chest Exam date and time: 02/17/2022 12:41 PM Age: 36 years old Clinical indication: Chest pain/pressure since yesterday. TECHNIQUE: Imaging protocol: XR of the chest. Views: 1 view. COMPARISON: CR XR chest 1V portable [id number] 11/06/2021 3:34 PM FINDINGS: Lungs: Low lung volumes. Nodular density at the right base measuring 1 cm. No pulmonary consolidation. Pleural spaces: No pleural effusion. No pneumothorax. Heart/Mediastinum: The cardiac silhouette is grossly unchanged. No gross evidence of pneumomediastinum. Bones/joints: No gross fracture. XR/XR chest 1V portable [id number] IMPRESSION: 1. Nodular density at the right base measuring [address] chest to further assess. 2. Low lung volumes. ? Dictated By: Raleigh Gant Signed By: Raleigh Gant Signed Date/Time: 02/17/22 1251 DD/ [address] [employer] [address] [address] [address] Scan Report Signed Patient: Payton Galloway Unit #: [id number] : 1985 Age/Sex: 36 / F ADM Date: 02/17/22 Loc: ER Room/Bed: Attending Dr: Ordering Provider/Ordering MD: Mae Crooks MD Date of Service: 02/17/22 Procedure(s): CT abdomen pelvis wo con [id number] Accession Number(s): [id number] Report Number: [id number] PROCEDURE INFORMATION: Exam: CT Abdomen And Pelvis Without Contrast Exam date and time: 02/17/2022 4:04 PM Age: 36 years old Clinical indication: Condition or disease; Spleen condition; Prior surgery; Surgery date: 3-7 days post-operative; Surgery type: [place]/appy/bilat tubal/ bladder swing; Patient HX: Splenomegaly S/P surgery last week for bladder sling. Abdominal pain, headaches, chills, hot flashes, right leg numbness, and left arm numbness. Dizzyness and blurred vision, diarrhea and vomiting; Additional info: Splenomegaly, recent surgery TECHNIQUE: Imaging protocol: Computed tomography of the abdomen and pelvis without contrast. Radiation optimization: All CT scans at this facility use at least one of these dose optimization techniques: automated exposure control; mA and/or kV adjustment per patient size (includes targeted exams where dose is matched to clinical indication); or iterative reconstruction. COMPARISON: CT abdomen pelvis w con* [id number] 12/27/2021 11:18 PM RADIATION DOSE METRICS: Total DLP (mGy-cm): 1715.91 FINDINGS: Liver: Normal. No mass. Gallbladder and bile ducts: Cholecystectomy. Pancreas: Normal. No ductal dilation. Spleen: Spleen enlarged to 15.5 cm, similar to prior exam. Adrenal glands: Normal. No mass. Kidneys and ureters:? Left ureter demonstrates several areas of non opacification without dilation, suggestive of peristalsis, if clinically indicated consider further evaluation with ureteroscopy. Stomach and bowel: Mildly prominent fluid in the small bowel without dilation may reflect an enteritis.? Minimal diverticulosis without diverticulitis. Appendix: No evidence of appendicitis. Intraperitoneal space: Unremarkable. No free air. No significant fluid collection. Vasculature: Unremarkable. No abdominal aortic aneurysm. Lymph nodes: Unremarkable. No enlarged lymph nodes. Urinary bladder: Small amount of air in the urinary bladder may be iatrogenic. Reproductive: Right ovary 4.5 cm cyst, likely follicular in nature. Bones/joints: Unremarkable. No acute fracture. Soft tissues: Unremarkable. CT/CT abdomen pelvis wo con [id number] IMPRESSION: 1. Mildly prominent fluid in the small bowel without dilation may reflect an enteritis. 2. Small amount of air in the urinary bladder may be iatrogenic. 3. Spleen enlarged to 15.5 cm, similar to prior exam. 4. Cholecystectomy. 5. Right ovary 4.5 cm cyst, likely follicular in nature. 6. Left ureter demonstrates several areas of non opacification without dilation, suggestive of peristalsis, if clinically indicated consider further evaluation with ureteroscopy. 7. Minimal diverticulosis without diverticulitis. ? Dictated By: Diego Jones MD Signed By: Diego Jones MD Signed Date/Time: 02/17/22 1643 DD/ 1604 [facility] [address] [place] [address] CT Scan Report Signed Patient: Payton Galloway Rachel Unit #: [id number] : 1985 Age/Sex: 36 / F ADM Date: 02/17/22 Loc: ER Room/Bed: Attending Dr: Ordering Provider/Ordering MD: Mae Crooks MD Date of Service: 02/17/22 Procedure(s): CT angio chest PE protcl [id number] Accession Number(s): [id number] Report Number: [id number] WS: [id number] CTA OF THE CHEST WITH PULMONARY EMBOLISM PROTOCOL TECHNIQUE: High-resolution contrast enhanced CTA of the chest with coronal and sagittal reformatted images with pulmonary embolism protocol. MIP images are also reviewed. CLINICAL INFORMATION: elevated dimer chest pain light-headedness COMPARISON: None. DLP: 449.[address] scans at [facility] use at least one of these dose optimization techniques: automated exposure control; mA and/or kV adjustment per patient size (includes targeted exams where dose is matched to clinical indication); or iterative reconstruction. FINDINGS: Proximal main pulmonary arteries are normal. Normal segmental and subsegmental pulmonary arteries. No evidence of pulmonary embolus. Normal caliber thoracic aorta. No mediastinal or hilar lymphadenopathy. Both lungs are well aerated. No acute pulmonary infiltrates. Hepatomegaly and splenomegaly partially visualized. Normal GE junction. Cholecystectomy clips. CT/CT angio chest PE protcl [id number] IMPRESSION: ? 1.? No evidence of pulmonary embolus. 2.? No acute pulmonary infiltrates. 3.? Partially visualized hepatomegaly and splenomegaly. ? Dictated By: Johnny Weems MD Signed By: Johnny Weems MD Signed Date/Time: 02/17/221528 DD/ 24 Discharge Plan Discharge Patient Disposition: Home Clinical Impression: Headache, Abdominal pain, Visual blurriness, Nausea vomiting and diarrhea, Lung nodule Condition: Stable Prescriptions: New acetaminophen 500 mg tablet 500 mg PO Q6H PRN (Reason: pain) 5 Days Qty: 20 0RF Pepcid 20 mg tablet 20 mg PO BID PRN (Reason: abdominal pain) 10 Days Qty: 20 0RF ondansetron 4 mg tablet,disintegrating 4 mg PO TID PRN (Reason: nausea and vomiting) 4 Days Qty: 12 0RF Maalox Advanced 1,000-60 mg tablet,chewable 1 tab PO TID PRN (Reason: abdominal pain) 7 Days Qty: 21 0RF No Action oxybutynin chloride 5 mg tablet extended release 24hr 5 mg PO DAILY Qty: 30 0RF hydroxyzine HCl 25 mg tablet 25 mg PO QID PRN (Reason: anxiety) Qty: 120 2RF (DME) AUTO-TITRATING CPAP See Rx Instructions .Route .MEDSUPPLY Qty: 1 0RF Rx Instructions: SETTING IS 8-12CM tizanidine 2 mg tablet 2 mg PO BID PRN (Reason: muscle spasticity) 30 Days Qty: 60 2RF multivitamin Tablet 1 tab PO DAILY 0RF pantoprazole [Protonix] 40 mg tablet,delayed release (DR/EC) 40 mg PO DAILY 30 Days Qty: 30 3RF meloxicam 15 mg tablet 15 mg PO DAILY PRN (Reason: Inflammation) 0RF duloxetine [Cymbalta] 30 mg capsule,delayed release(DR/EC) 30 mg PO BEDTIME 0RF ibuprofen 800 mg tablet 800 mg PO TID PRN (Reason: pain) Qty: 60 0RF hydrocodone-acetaminophen 5-325 mg tablet 1 tab PO Q4H PRN (Reason: pain) Qty: 10 0RF acetaminophen 325 mg capsule 325 mg PO Q4H PRN (Reason: fever or pain) Qty: 60 0RF bupropion HCl 150 mg tablet extended release 24 hr 150 mg PO DAILY 0RF Discharge Orders: Discharge ED (Routine); Ordered 02/17/22 Ordered By: Mae Crooks Referrals: Jonna Brenner DO [Primary Care Provider] - Discharge Diet: Advance as tolerated Discharge Activity: Increase activity as tolerated Patient Instructions: Abdominal Pain (ED) Activity Restrictions/Additional Instructions: Please come back if you have any worsening abdominal pain, fever or chills, stephani sea or vomiting, diarrhea, blood in the stool, inability hold down liquid or solids, or any new concerning complaints. Our [employer] will have you follow-up with Opthalmology tomorrow morning codie Dr. Ken Williamson: [facility] [phone] Please follow-up for your eye complaints. [place] to the emergency room for any acute vision loss, worsening vision, eye pain, double vision, focal weakness in the arms or legs, nausea vomiting, inability to hold anything down or any new external complaints. Here's a copy of your XR report. Please follow up with your primary care provider for the lung nodule as you may need a CT scan. [employer] [address] XRay Report Signed Patient: Payton Galloway Rachel Unit #: [id number] : 1985 Age/Sex: 36 / F ADM Date: 02/17/22 Loc: ER Room/Bed: Attending Dr: Ordering Provider/Ordering MD: Mae Crooks MD Date of Service: 02/17/22 Procedure(s): XR chest 1V portable [id number] Accession Number(s): [id number] Report Number: [id number] PROCEDURE INFORMATION: Exam: XR Chest Exam date and time: 02/17/2022 12:41 PM Age: 36 years old Clinical indication: Chest pain/pressure since yesterday. TECHNIQUE: Imaging protocol: XR of the chest. Views: 1 view. COMPARISON: CR XR chest 1V portable [id number] 11/06/2021 3:34 PM FINDINGS: Lungs: Low lung volumes. Nodular density at the right base measuring 1 cm. No pulmonary consolidation. Pleural spaces: No pleural effusion. No pneumothorax. Heart/Mediastinum: The cardiac silhouette is grossly unchanged. No gross evidence of pneumomediastinum. Bones/joints: No gross fracture. XR/XR chest 1V portable [id number] IMPRESSION: 1. Nodular density at the right base measuring [address] chest to further assess. 2. Low lung volumes. ? Dictated By: Raleigh Gant Signed By: Raleigh Gant Signed Date/Time: 02/17/22 1251 DD/ 1241 Stand Alone Forms: Work/School Release Coding Level of Care Code ED Youth Officer for Chg Fwd Exam Comprehensive
[2022-02-17] MEDS: lidocaine 2% viscous 15 ML, aluminum-mag hydrox-simethicon 30 ML, sucralfate oral liq 1 GM PO (12:34)
[2022-02-17] MEDS: acetaminophen 500 mg Tablet 1000 MG PO (12:34)
[2022-02-17] MEDS: sodium chloride 0.9% 1,000 ML 999 ML IV (12:34)
[2022-02-17] MEDS: metoclopramide 5 mg/mL SDV 2 mL IVP (12:35)
[2022-02-17 12:36] LABS: Alanine Aminotransferase 46 U/L (0-33); Albumin Level 4.5 g/dL (3.5-5.2); Alkaline Phosphatase 98 IU/L (35-105); Anion Gap 15.8 (5-19); Aspartate Amino Transferase 29 U/L (0-32); Blood Urea Nitrogen 9 mg/dL (6-20); Calcium 10.3 mg/dL (8.5-10.5); Carbon Dioxide 28 mmol/L (22-29); Chloride 95 mmol/L (98-107); Globulin 4.1 g/dL (1.3-4.6); Glomerular Filtration Rate 80.3 mL/min (90-130); Glucose 97 mg/dL (65-115); Lipase 20 U/L (13-60); Osmolality Calculated 279 mOsm/kg (285-295); Potassium 3.8 mmol/L (3.5-5.1); Sodium 135 mmol/L (136-145); Total Bilirubin 0.8 mg/dL (0.15-1.2); Total Protein 8.6 g/dL (6.6-8.7)
--- NOTE | 2022-02-17 12:46 | PC.PHAR ---
PT STATES DR DISC. SOLARES BECAUSE IT DOESN'T WORK FOR HER.
[2022-02-17 13:03] LABS: Troponin(5th) Baseline 6 ng/L (0-10)
[2022-02-17 13:30] LABS: Add Urine Microscopic? YES; Bilirubin Urine Neg (Negative); Blood Urine 3+ (Negative); Glucose Urine UA Norm (Normal); Ketones Urine Negative (Negative); Leukocyte Esterase Urine 2+ (Negative); Nitrate Urine Negative (Negative); Protein Urine Neg (Negative); Specific Gravity, Urine 1.015 (1.005-1.030); Urine Appearance Cloudy (CLEAR); Urine Color Yellow (Yellow); Urobilinogen Urine 1 mg/dL (Negative); pH Urine 6 (5-7)
[2022-02-17 13:31] LABS: Add Urine Culture? Yes; Bacteria Urine 3+ /hpf; WBC Urine 15-25 /hpf (0-5)
[2022-02-17 13:38] LABS: D Dimer 1.23 ug/mIFEU (0-0.59)
--- NOTE | 2022-02-17 13:39 | CT_ITS ---
WS: [id number] CTA OF THE CHEST WITH PULMONARY EMBOLISM PROTOCOL TECHNIQUE: High-resolution contrast enhanced CTA of the chest with coronal and sagittal reformatted i catrinas with pulmonary embolism protocol. MIP images are also reviewed. CLINICAL INFORMATION: elevated dimer chest pain light-headedness COMPARISON: None. DLP: 449.[address] scans at [facility] use at least one of these dose optimization techniques: automated e xposure control; mA and/or kV adjustment per patient size (includes targeted exams where dose is matc hed to clinical indication); or iterative reconstruction. FINDINGS: Proximal main pulmonary arteries are normal. Normal segmental and subsegmental pulmonary arteries. No evidence of pulmonary embolus. Normal caliber thoracic aorta. No mediastinal or hilar lymphadenopath y. Both lungs are well aerated. No acute pulmonary infiltrates. Hepatomegaly and splenomegaly partially visualized. Normal GE junction. Cholecystectomy clips. CT/CT angio chest PE protcl [id number] IMPRESSION: 1. No evidence of pulmonary embolus. 2. No acute pulmonary infiltrates. 3. Partially visualized hepatomegaly and splenomegaly.
--- NOTE | 2022-02-17 14:24 | ECG_ITS ---
[facility] Test Date: 2022-02-17 Pat Name: Payton Galloway Department: Room: Gender: Female [employer]: : 1985 Requested By: Mae Crooks Order Number: [id number] Caryl MD: Amanda Eid M.D. Measurements Intervals [place] Rate: 64 P: 30 ME: 163 QRS: 13 QRSD: 79 T: 12 QT: 393 QTc: 408 Interpretive Statements SINUS RHYTHM POSSIBLE ANTERIOR MYOCARDIAL INFARCTION , PROBABLY OLD [30 ms Q WAVE IN V3/V4, OR R < 0.2 mV IN V4] Compared to ECG 02/17/2022 12:34:49 No significant changes Electronically Signed On 02-17-2022 17:41:13 CDT by Amanda Eid M.D. [email or web address]
[2022-02-17] MEDS: iohexol 300 mg/mL 100 mL Btl IV (15:14)
--- NOTE | 2022-02-17 15:35 | CTR_ITS ---
PROCEDURE INFORMATION: Exam: CT Abdomen And Pelvis Without Contrast Exam date and time: 02/17/2022 4:04 PM Age: 36 years old Clinical indication: Condition or disease; Spleen condition; Prior surgery; Surgery date: 3-7 days post-operative; Surgery type: Latonia/appy/bilat tubal/ bladder swing; Patient HX: Splenomegaly S/P surgery last week for bladder sling. Abdominal pain, headaches, chills, hot flashes, right leg numbness, and left arm numbness. Dizzyness and blurred vision, diarrhea and vomiting; Additional info: Splenomegaly, recent surgery TECHNIQUE: Imaging protocol: Computed tomography of the abdomen and pelvis without contrast. Radiation optimization: All CT scans at this facility use at least one of these dose optimization techniques: automated exposure control; mA and/or kV adjustment per patient size (includes targeted exams where dose is matched to clinical indication); or iterative reconstruction. COMPARISON: CT abdomen pelvis w con* [id number] 12/27/2021 11:18 PM RADIATION DOSE METRICS: Total DLP (mGy-cm): 1715.91 FINDINGS: Liver: Normal. No mass. Gallbladder and bile ducts: Cholecystectomy. Pancreas: Normal. No ductal dilation. Spleen: Spleen enlarged to 15.5 cm, similar to prior exam. Adrenal glands: Normal. No mass. Kidneys and ureters: Left ureter demonstrates several areas of non opacification without dilation, suggestive of peristalsis, if clinically indicated consider further evaluation with ureteroscopy. Stomach and bowel: Mildly prominent fluid in the small bowel without dilation may reflect an enteritis. Minimal diverticulosis without diverticulitis. Appendix: No evidence of appendicitis. Intraperitoneal space: Unremarkable. No free air. No significant fluid collection. Vasculature: Unremarkable. No abdominal aortic aneurysm. Lymph nodes: Unremarkable. No enlarged lymph nodes. Urinary bladder: Small amount of air in the urinary bladder may be iatrogenic. Reproductive: Right ovary 4.5 cm cyst, likely follicular in nature. Bones/joints: Unremarkable. No acute fracture. Soft tissues: Unremarkable. CT/CT abdomen pelvis wo con [id number] IMPRESSION: 1. Mildly prominent fluid in the small bowel without dilation may reflect an enteritis. 2. Small amount of air in the urinary bladder may be iatrogenic. 3. Spleen enlarged to 15.5 cm, similar to prior exam. 4. Cholecystectomy. 5. Right ovary 4.5 cm cyst, likely follicular in nature. 6. Left ureter demonstrates several areas of non opacification without dilation, suggestive of peristalsis, if clinically indicated consider further evaluation with ureteroscopy. 7. Minimal diverticulosis without diverticulitis.
--- NOTE | 2022-02-17 16:04 | DCPLANNER ---
Addendum entered by Marti Martins 03/14/22 12:05: Patient had a follow up appointment for patient with Dr. Williamson - patient did not attend appointment. Original Note: redevelopment manager was asked to schedule a follow up appointment for patient with Casimiro Gomez at Dr. Williamson office. redevelopment manager faxed patients information to the office of Casimiro Gomez. Clinic will call patient with appointment information.
[2022-02-17] MEDS: morphine 4 mg/mL SDV 1 mL 2 MG IVP (16:06)
== END 2022-02-17 17:17 | disposition home or self-care (01) ==
PROVIDERS: Emergency Provider Emergency Medicine; PCP Family Medicine
DX: R10.9 Unspecified abdominal pain (principal); R51.9 Headache, unspecified; H53.8 Other visual disturbances; R11.2 Nausea with vomiting, unspecified; K52.9 Noninfective gastroenteritis and colitis, unspecified; R91.1 Solitary pulmonary nodule; R07.9 Chest pain, unspecified; Z98.890 Other specified postprocedural states
CPT/HCPCS: 71045; 71275; 74176; 80053; 81001; 83690; 84484; 85025; 85378; 87086; 93005; 96361; 96374; 96375; 99285; J2270; J2765; J7030; Q9967

== ENCOUNTER → 2022-02-19 13:13 | Outpatient (BNVA) | payer BC, MEDICAID, SELFPAY | PROVIDERS: PCP Family Medicine; Visit Provider Surgery | DX: E66.01 Morbid (severe) obesity due to excess calories (principal); Z68.42 Body mass index [BMI] 45.0-49.9, adult | CPT/HCPCS: 99213 ==

== ENCOUNTER → 2022-03-05 10:33 | Outpatient (BNVA) | payer BC, MEDICAID, SELFPAY | PROVIDERS: PCP Family Medicine; Visit Provider Psychiatry & Neurology Psychiatry | DX: F43.12 Post-traumatic stress disorder, chronic (principal); F41.1 Generalized anxiety disorder; J10.1 Influenza due to other identified influenza virus with other respiratory manifestations | CPT/HCPCS: 99214 ==

== ENCOUNTER 2022-04-25 08:04 | Outpatient (CLI) | payer BC, MEDICAID, SELFPAY ==
--- NOTE | 2022-04-25 08:30 | US_ITS ---
WS: [id number] RIGHT UPPER QUADRANT ULTRASOUND HISTORY: hepatomegaly COMPARISON: 05/24/2011, CT 02/17/2022 Liver: 16.6 cm in length. Normal size liver with mild hepatic steatosis. No mass or bile duct dilatat ion. Portal Vein: Normal hepatopetal flow with monophasic waveform. Gallbladder: Status post cholecystectomy. CBD: 0.5 cm Pancreas: Not visualized due to bowel gas. Right kidney: 11.5 cm in length. Normal size and echogenicity. No hydronephrosis or mass. Aorta and IVC: Unremarkable abdominal aorta and IVC. No ascites. US/US liver [id number] IMPRESSION: 1. Limited by body habitus and bowel gas. 2. Mild hepatic steatosis. 3. Prior cholecystectomy.
== END 2022-04-25 08:05 | disposition home or self-care (01) ==
PROVIDERS: PCP Family Medicine; Visit Provider Family Medicine
DX: R16.0 Hepatomegaly, not elsewhere classified (principal); K76.0 Fatty (change of) liver, not elsewhere classified; Z90.49 Acquired absence of other specified parts of digestive tract
CPT/HCPCS: 76705

== ENCOUNTER → 2022-05-06 09:53 | Outpatient (BNVA) | payer BC, MEDICAID, SELFPAY | PROVIDERS: PCP Family Medicine; Visit Provider Anesthesiology Pain Medicine | DX: G89.29 Other chronic pain (principal); M54.2 Cervicalgia; Z87.891 Personal history of nicotine dependence; M79.18 Myalgia, other site | CPT/HCPCS: 20553; 99214; J1030 ==

== ENCOUNTER → 2022-06-02 08:48 | Outpatient (BNVA) | payer BC, MEDICAID, SELFPAY | PROVIDERS: PCP Family Medicine; Visit Provider Anesthesiology Pain Medicine | DX: Z87.891 Personal history of nicotine dependence (principal); G89.29 Other chronic pain; M54.2 Cervicalgia | CPT/HCPCS: 99214 ==

== ENCOUNTER 2022-06-27 15:25 | Outpatient (CLI) | payer BC, MEDICAID, SELFPAY ==
--- NOTE | 2022-06-27 15:38 | MM_ITS ---
WS: [id number] BILATERAL 3D TOMOSYNTHESIS DIGITAL SCREENING MAMMOGRAPHY WITH CAD CLINICAL INFORMATION: Z12.39 - Encounter for other screening for malignant neop.. HISTORY: Screening mammogram. Bilateral breast soreness COMPARISON: May 17, 2020 and January 12, 2013 TECHNIQUE: Bilateral CC and MLO views. FINDINGS: Scattered fibroglandular densities bilaterally. Slightly spiculated asymmetric density measuring 11 m m central LEFT breast only well seen on the MLO view along the posterior nipple line. Recommend LEFT diagnostic mammography and ultrasound for further evaluation. RIGHT breast is unchanged. MM/[place] [id number] IMPRESSION: BI-RADS: 0-Incomplete: Need additional imaging evaluation FOLLOW UP: Need Additional Imaging Recommendation LEFT breast diagnostic mammography and ultrasound in further savanna luation.
== END 2022-06-27 15:26 | disposition home or self-care (01) ==
LOC: RAD 15:27
PROVIDERS: PCP Family Medicine; Visit Provider Obstetrics & Gynecology
DX: Z12.31 Encounter for screening mammogram for malignant neoplasm of breast (principal); N64.89 Other specified disorders of breast
CPT/HCPCS: 77063; 77067

== ENCOUNTER → 2022-06-29 19:08 | Outpatient (BNVA) | payer BC, MEDICAID, SELFPAY | PROVIDERS: PCP Family Medicine; Visit Provider Nurse Practitioner Family | DX: N39.0 Urinary tract infection, site not specified (principal) | CPT/HCPCS: 81000 ==

== ENCOUNTER 2022-07-18 09:44 | Outpatient (CLI) | payer BC, MEDICAID, SELFPAY ==
[2022-07-18 10:37] LABS: Follicle Stimulating Hormone 1.6 mIU/mL
== END 2022-07-18 09:45 | disposition home or self-care (01) ==
LOC: LAB 09:46
PROVIDERS: PCP Family Medicine; Visit Provider Obstetrics & Gynecology
DX: N89.8 Other specified noninflammatory disorders of vagina (principal); N95.1 Menopausal and female climacteric states
CPT/HCPCS: 36415; 83001

== ENCOUNTER 2022-07-21 16:39 | Emergency (ER) | payer BC, MEDICAID, SELFPAY ==
[2022-07-21 17:00] VITALS: BP 132/82; PULSE 81; RESP 16; TEMP 36.3; O2SAT 100; BMI 47.2
--- NOTE | 2022-07-21 17:53 | XRR_ITS ---
PROCEDURE INFORMATION: Exam: XR Left Femur Exam date and time: 07/21/2022 7:12 PM Age: 36 years old Clinical indication: Pain; Thigh; Left; Additional info: Fall, no prior imaging TECHNIQUE: Imaging protocol: Radiologic exam of the Left femur. Views: 2 views. COMPARISON: CT abdomen pelvis con [id number] 02/17/2022 4:04 PM FINDINGS: Bones/joints: Unremarkable. No acute fracture. Soft tissues: Unremarkable. XR/XR femur LT min 2V* [id number] IMPRESSION: No acute findings.
--- NOTE | 2022-07-21 17:53 | XRR_ITS ---
PROCEDURE INFORMATION: Exam: XR Left Tibia and Fibula Exam date and time: 07/21/2022 7:12 PM Age: 36 years old Clinical indication: Pain; Lower leg; Left; Additional info: Fall injury TECHNIQUE: Imaging protocol: Radiologic exam of the Left tibia and fibula. Views: 2 views. COMPARISON: No relevant prior studies available. FINDINGS: Bones/joints: Normal. Soft tissues: Normal. XR/XR tibia fibula LT 2V [id number] IMPRESSION: No acute findings.
--- NOTE | 2022-07-21 18:54 | ED_ITS ---
HPI - Extremity Problem General: Chief complaint: Extremity Injury, Lower Stated complaint: fall Time Seen by Provider: 07/21/22 18:54 History of Present Illness: 36-year-old female comes in for evaluation of injury to the left hip and left ankle. Patient reports [facility] and [facility]uring her hip and ankle. Patient appears in mild to no pain. Patient appears nontoxic. Review of Systems General: Reports: 10 or more systems reviewed and unremarkable except in HPI and below Musc: Reports: extremity pain PFSH ED PFSH: Medical History Allergic alveolitis and pneumonitis Anxiety and depression PTSD---diagnosed in 2010---managed by [facility]-she sees Dr. Lu every 2 months. History of seizure Diagnosed in 2017 and per patient they were found to be new distress. Has not had any symptoms or seizures since 2019. No pertinent past medical history Denies diabetes, hypertension, DVT/PE PCP: Dr. Brenner CRISELDA (obstructive sleep apnea) Diagnosed in 2020 and is getting fitted for CPAP in May 2021. Surgical History History of bilateral tubal ligation (06/04/16) LTF, right salpingectomy. Performed by Dr. Jama at [facility] in [place], [place]. 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 Appendectomy performed by Dr. Cota. -----> pathology showed----> Infarcted leiomyoma with reactive changes. Adherent to distal end of fallopian tube; Benign appendix. History of cholecystectomy (~2011) Laparoscopic. S/P laparoscopic appendectomy (06/04/16) Performed at time of sterilization. Performed by Dr. Cota at [facility] in [place], [place] Family History Family/Other Thyroid disease paternal aunt Grandmother Thyroid disease paternal Breast cancer maternal, diagnosed in her 40s Ovarian cancer paternal, diagosed in her 40s Diabetes maternal, paternal Hypertension maternal and paternal Heart disease maternal Grandfather Diabetes maternal, paternal Hypertension maternal and paternal Stroke paternal Heart disease paternal Father Hypertension Stroke Mother Hypertension Denies family history of Colon cancer Hyperlipidemia Uterine cancer Social History Smoking and tobacco status: former smoker Quit status (tobacco): has quit using tobacco Year quit tobacco: 2001 Second hand smoke exposure: No Female Reproductive History: Date of last menstrual period: 07/21/22 Physical Exam Const: COMMON NORMALS: alert HENMT: COMMON NORMALS: atraumatic HEAD & SCALP: atraumatic Neck/C-Spine: COMMON NORMALS: full ROM CERVICAL SPINE: No Cervical spine tenderness Resp: COMMON NORMALS: normal respiratory effort Cardio: COMMON NORMALS: regular rate RATE: regular rate Extremity: LEFT LOWER EXTREMITY: Yes hip joint (Weightbearing, tenderness on palpation) and Yes lower leg (Distal tenderness no obvious deformity) Left lower leg: Yes inspection, Yes palpation and Yes neurovascular exam Neuro: SENSORIUM/ORIENTATION: Yes alert Course Vital Signs: Vital signs: Vital Signs Temperature 97.4 F L 07/21/22 17:00 Pulse Rate 81 07/21/22 17:00 Respiratory Rate 16 07/21/22 17:00 Blood Pressure 132/82 07/21/22 17:00 Pulse Oximetry 100 07/21/22 17:00 Oxygen Delivery Me thod 07/21/22 17:00 MDM - Extremity (Nontraumatic) Medical Decision Making 36-year-old female comes in today for complaints of injury sustained during a fall last night. Patient appears nontoxic. On exam she has some soft tissue tenderness of the left hip and left lower leg. No obvious swelling or ecchymosis is noted. No spinal tenderness is noted. Patient moves neck without any difficulty. No signs of illness or serious injury is noted. Differential diagnosis includes contusion, fracture, sprain. X-rays of the femur and tib-fib on the left side indicated no fracture. Reviewed exam with patient with recommendations for follow-up and return to the ER as needed. Patient stated understanding and agreed to plan. Lab Data Radiology Impressions Femur X-Ray 07/21/22 17:53 IMPRESSION: No acute findings. Tibia/Fibula X-Ray 07/21/22 17:53 IMPRESSION: No acute findings. Discharge Plan Discharge Patient Disposition: Home Clinical Impression: Contusion of left leg Qualifiers: Encounter type: initial encounter Qualified Code(s): S80.12XA - Contusion of left lower leg, initial encounter Condition: Stable Prescriptions: No Action pantoprazole [Protonix] 40 mg tablet,delayed release (DR/EC) 40 mg PO DAILY 30 Days Qty: 30 3RF meloxicam 15 mg tablet 15 mg PO DAILY PRN (Reason: Inflammation) Qty: 30 4RF Rx Instructions: Pt. to take as needed QD and no other NSAIDS to be taken with Meloxicam. (DME) AUTO-TITRATING CPAP See Rx Instructions .Route .MEDSUPPLY Qty: 1 0RF Rx Instructions: SETTING IS 8-12CM albuterol sulfate [Ventolin HFA] 90 mcg/actuation HFA aerosol inhaler 2 puff inhalation Q6H PRN (Reason: shortness of breath or wheezing) Qty: 8.5 2RF clobetasol 0.05 % cream 1 applic topical .3 times weekly PRN (Reason: rash and other skin eruption) Qty: 30 0RF oxybutynin chloride 5 mg tablet extended release 24 hr 5 mg PO DAILY Qty: 30 0RF clonazepam [Klonopin] 0.5 mg tablet 0.5 mg PO DAILY PRN (Reason: anxiety) Qty: 30 1RF duloxetine 60 mg capsule,delayed release(DR/EC) See Rx Instructions .ROUTE .COMPLEX Qty: 30 1RF Dose Instruction: take 1 capsule BY MOUTH AT BEDTIME Rx Instructions: take 1 capsule BY MOUTH AT BEDTIME multivitamin Tablet 1 tab PO DAILY Discharge Orders: Discharge ED (Routine); Ordered 07/21/22 Ordered By: Raleigh Loera Referrals: Jonna Brenner DO [Primary Care Provider] - Discharge Diet: Usual diet Discharge Activity: Increase activity as tolerated Patient Instructions: Contusion in Adults (ED) Activity Restrictions/Additional Instructions: Activity as tolerated. Gentle stretching and range of motion exercises. Use ice or heat to help with pain. Use acetaminophen and ibuprofen for further pain relief. Follow-up with primary care as needed. Return to ED for new concerns. Coding Level of Care Code ED Customs Compliance Manager for Jamel Fwd Exam Detailed
== END 2022-07-21 20:17 | disposition home or self-care (01) ==
PROVIDERS: Emergency Provider Nurse Practitioner Family; PCP Family Medicine
DX: S80.12XA Contusion of left lower leg, initial encounter (principal); Z87.891 Personal history of nicotine dependence; W01.0XXA Fall on same level from slipping, tripping and stumbling without subsequent striking against object, initial encounter; Y92.512 Supermarket, store or market as the place of occurrence of the external cause
CPT/HCPCS: 73552; 73590; 99283

== ENCOUNTER 2022-07-31 07:54 | Outpatient (CLI) | payer BC, MEDICAID, SELFPAY ==
--- NOTE | 2022-07-31 08:02 | MM_ITS ---
WS: [id number] LEFT 3D TOMOSYNTHESIS DIGITAL MAMMOGRAPHY WITH CAD CLINICAL INFORMATION: R92.8 - Other abnormal and inconclusive findings on diagn... COMPARISON: June 27, 2022 TECHNIQUE: 3 views of the left breast were obtained. FINDINGS: Scattered fibroglandular densities of the left breast. Previously described 11 mm asymmetric density central LEFT breast compresses out today on the spot compression views. No other suspicious findings. Recommend return to annual screening mammography. MM/[place] [id number] IMPRESSION: BI-RADS: 2-Benign FOLLOW UP: 1 Year Follow-up Recommend return to annual screening mammography.
== END 2022-07-31 07:55 | disposition home or self-care (01) ==
LOC: RAD 07:55
PROVIDERS: PCP Family Medicine; Visit Provider Obstetrics & Gynecology
DX: R92.8 Other abnormal and inconclusive findings on diagnostic imaging of breast (principal)
CPT/HCPCS: 77061

== ENCOUNTER → 2022-09-17 13:55 | Outpatient (BNVA) | payer BC, MEDICAID, SELFPAY | PROVIDERS: PCP Family Medicine; Visit Provider Registered Nurse Neonatal Intensive Care | DX: N39.0 Urinary tract infection, site not specified (principal); R39.9 Unspecified symptoms and signs involving the genitourinary system | CPT/HCPCS: 81000; 87086 ==

== ENCOUNTER 2022-11-10 07:55 | Outpatient (CLI) | payer BC, MEDICAID, SELFPAY ==
--- NOTE | 2022-11-10 08:03 | XR_ITS ---
WS: [id number] XR lumbar spine f/e only [id number] REASON FOR EXAM: CERVICALGIA FINDINGS: Normal neutral lumbar lordosis. No lumbar compression deformity or focal lesion. Minor anterior osteophytosis L1-L4. Mild narrowing of the L4-L5 and L5-S1 disc spaces. No significant neutral listhesis. No significant vertebral body movement with flexion and extension. No significant abnormality of the facet joints. XR/XR lumbar spine f/e only [id number] IMPRESSION: Minimal change of degenerative spondylosis as above.
--- NOTE | 2022-11-10 08:03 | XR_ITS ---
WS: [id number] XR cervical spine fl/ex [id number] REASON FOR EXAM: VERTEBROGENIC LOW BACK PAIN FINDINGS: Mild straightening of the normal lordosis in the neutral position. Normal odontoid and cervical vertebral bodies. Normal intervertebral disc spaces. Normal facet joint alignment. No significant neutral listhesis. No abnormal vertebral body movement with flexion and extension. Cervical spine is unchanged compared to 12/12/2020. XR/XR cervical spine fl/ex [id number] IMPRESSION: Stable cervical spine without significant focal abnormality.
== END 2022-11-10 07:56 | disposition home or self-care (01) ==
LOC: RAD 07:58
PROVIDERS: PCP Family Medicine; Visit Provider Nurse Practitioner
DX: M54.2 Cervicalgia (principal); M47.816 Spondylosis without myelopathy or radiculopathy, lumbar region
CPT/HCPCS: 72040; 72120

== ENCOUNTER 2023-01-14 07:20 | Emergency (ER) | payer BC, MEDICAID, SELFPAY ==
--- NOTE | 2023-01-14 07:33 | USCV_ITS ---
Payton Galloway Age: 37 Gender: F : 1985 Exam Date: 01/14/2023 07:52 Ordering Phys: Peace Otero Technologist: CT Exam Location: [facility] [place]_ Indication: PROCEDURES: Venous duplex imaging was performed in only the right lower extremity. On the right side, the common femoral, superficial femoral, profunda femoral, popliteal, posterior tibial, greater saphenous veins and the peroneal trunk were identified and interrogated in the standard fashion. These veins were found to be easily compressible with spontaneous blood flow. No evidence of insufficiency or thrombus noted. FINDINGS: normal us CONCLUSIONS No evidence of right lower extremity DVT. Johnny Weems MD (Electronically Signed) Final Date: 14 January 2023 09:51 S
[2023-01-14 07:34] VITALS: BP 102/80; PULSE 77; RESP 16; TEMP 36.5; O2SAT 97
--- NOTE | 2023-01-14 07:34 | W.ED.EXTPRO ---
HPI - Extremity Problem General: Chief complaint: Extremity Injury, Lower Stated complaint: right leg pain/post surg Time Seen by Provider: 01/14/23 07:22 Source: patient Mode of arrival: ambulatory Limitations: no limitations History of Present Illness: Patient is a 37-year-old female presents to ED today with complaint of right leg pain. Patient states she is approximately 2 weeks postop from a gastric sleeve surgery. She states a few days ago she began noticing pain to her right lower leg mainly in the posterior aspect of her right thigh. She states she had a friend tell her she needed to come to the ED to rule out a DVT. Patient has not noticed any swelling to the extremity. She has not noticed any color or temperature changes. Denies numbness, tingling, loss of sensation, or weakness. She is ambulatory without assistance or difficulty. She does not complain of any back pain. Denies previous history of DVT/PE. She states she was given Lovenox injections while in the hospital. MD Complaint: extremity pain Onset (ago): day(s) Pain Consistency: constant Location: right and lower extremity Radiation: none Relieving factors: nothing Exacerbating factors: nothing Associated symptoms: Reports no associated symptoms; Deny chest pain, fever(s) or rash Context: recent surgery/procedure Review of Systems Const: Denies: fever(s), chills, body aches, fatigue or malaise Card: Denies: chest pain Resp: Denies: dyspnea GI: Denies: abdominal pain : Denies: flank pain, dysuria or hematuria Musc: Reports: extremity pain; Denies: neck pain, back pain, extremity swelling, joint pain, joint swelling, joint redness, joint warmth, joint stiffness, limited range of motion, muscle cramps or muscle weakness Skin/Breast: Denies: rash Neuro: Denies: headache(s), numbness in extremities, weakness in extremities, sensory changes or dizziness PFS ED PFSH: Medical History Allergic alveolitis and pneumonitis Anxiety and depression PTSD---diagnosed in 2010---managed by [facility]-she sees Dr. Lu every 2 months. History of seizure Diagnosed in 2017 and per patient they were found to be new distress. Has not had any symptoms or seizures since 2019. No pertinent past medical history Denies diabetes, hypertension, DVT/PE PCP: Dr. Brenner CRISELDA (obstructive sleep apnea) Diagnosed in 2020 and is getting fitted for CPAP in May 2021. Surgical History History of bilateral tubal ligation (06/04/16) LTF, right salpingectomy. Performed by Dr. Jama at [facility] in [place], [place]. 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 Appendectomy performed by Dr. Cota. -----> pathology showed----> Infarcted leiomyoma with reactive changes. Adherent to distal end of fallopian tube; Benign appendix. History of cholecystectomy (~2011) Laparoscopic. S/P laparoscopic appendectomy (06/04/16) Performed at time of sterilization. Performed by Dr. Cota at [facility] in [place], [place] Family History Family/Other Thyroid disease paternal aunt Grandmother Thyroid disease paternal Breast cancer maternal, diagnosed in her 40s Ovarian cancer paternal, diagosed in her 40s Diabetes maternal, paternal Hypertension maternal and paternal Heart disease maternal Grandfather Diabetes maternal, paternal Hypertension maternal and paternal Stroke paternal Heart disease paternal Father Hypertension Stroke Mother Hypertension Denies family history of Colon cancer Hyperlipidemia Uterine cancer Social History Smoking and tobacco status: former smoker Quit status (tobacco): has quit using tobacco Year quit tobacco: 2001 Second hand smoke exposure: No Alcohol intake: never Physical Exam Const: COMMON NORMALS: no acute distress, patient oriented x3, no limitations and alert GENERAL APPEARANCE: cooperative NUTRITIONAL APPEARANCE: obese morbidly obese ORIENTATION/CONSCIOUSNESS: Yes awake, Yes oriented to person, Yes oriented to place and Yes oriented to time HENMT: COMMON NORMALS: normocephalic and atraumatic HEAD & SCALP: normal to inspection, normocephalic and atraumatic Resp: COMMON NORMALS: normal respiratory effort and clear to auscultation bilaterally AUSCULTATION: clear to auscultation bilaterally Cardio: COMMON NORMALS: regular rate and regular rhythm RATE: regular rate RHYTHM: regular rhythm Back/Pelvis: COMMON NORMALS: thoracic and lumbar spine normal to inspection, no thoracic nor lumbar tenderness and thoraco-lumbar ROM normal PELVIS: Yes buttocks normal SACROILIAC JOINTS: Yes SI joints normal SACRUM: no tenderness COCCYX: no tenderness Extremity: COMMON NORMALS: normal to inspection, full ROM, capillary refill normal, no joint enlargement, no clubbing, cyanosis or edema, no calf tenderness and no pedal edema GENERAL: Yes normal exam except as noted RIGHT LOWER EXTREMITY: Yes upper leg OTHER: report pain to posterior R thigh; I do not appreciate any swelling to extremity although this is evaluation is limited secondary to body habitus; there is no redness/warmth or overlying skin changes present; DP/PT pulses normal with brisk cap refill and normal sensation Neuro: COMMON NORMALS: patient oriented x3, moves all extremities, no focal motor deficits, no sensory deficits noted and gait normal SENSORIUM/ORIENTATION: Yes alert, Yes oriented to person, Yes oriented to place and Yes oriented to time Skin: COMMON NORMALS: no rashes or lesions noted GENERAL SKIN EXAM: no rashes or lesions noted Course Vital Signs: Vital signs: Vital Signs Temperature 97.7 F 01/14/23 07:34 Pulse Rate 77 01/14/23 07:34 Respiratory Rate 16 01/14/23 07:34 Blood Pressure 102/80 01/14/23 07:34 Pulse Oximetry 97 01/14/23 07:34 MDM - Extremity (Nontraumatic) Medical Decision Making US negative for DVT. Recommend PCP follow up. Return to ED precautions given. Discharge Plan Discharge Patient Disposition: Home Clinical Impression: Pain in right leg Condition: Stable Prescriptions: No Action tizanidine 2 mg tablet 2 mg PO BID PRN (Reason: muscle spasticity) Qty: 60 0RF meloxicam 15 mg tablet 15 mg PO DAILY PRN (Reason: Inflammation) Qty: 30 4RF Rx Instructions: Pt. to take as needed QD and no other NSAIDS to be taken with Meloxicam. methylprednisolone acetate [Depo-Medrol] 40 mg/mL suspension 40 mg Infiltration ONCE Qty: 1 0RF bupivacaine (PF) 0.25 % (2.5 mg/mL) solution 1 ml Infiltration ONCE Qty: 1 0RF doxycycline hyclate 100 mg tablet 100 mg PO BID 7 Days Qty: 14 0RF (DME) AUTO-TITRATING CPAP See Rx Instructions .Route .MEDSUPPLY Qty: 1 0RF Rx Instructions: SETTING IS 8-12CM duloxetine 60 mg capsule,delayed release(DR/EC) See Rx Instructions .ROUTE .COMPLEX Qty: 30 2RF Dose Instruction: take 1 capsule BY MOUTH AT BEDTIME Rx Instructions: take 1 capsule BY MOUTH AT BEDTIME clobetasol 0.05 % cream See Rx Instructions .ROUTE .COMPLEX Qty: 30 0RF Dose Instruction: apply topically three times weekly NEEDED FOR rash and other SKIN eruption Rx Instructions: apply topically three times weekly NEEDED FOR rash and other SKIN eruption oxybutynin chloride 5 mg tablet extended release 24hr See Rx Instructions .ROUTE .COMPLEX Qty: 30 2RF Dose Instruction: TAKE 1 TABLET BY MOUTH EVERY DAY Rx Instructions: TAKE 1 TABLET BY MOUTH EVERY DAY pantoprazole 40 mg tablet,delayed release (DR/EC) See Rx Instructions .ROUTE .COMPLEX Qty: 30 0RF Dose Instruction: TAKE ONE TABLET BY MOUTH EVERY DAY Rx Instructions: TAKE ONE TABLET BY MOUTH EVERY DAY clonazepam [Klonopin] 0.5 mg tablet 0.5 mg PO DAILY PRN (Reason: anxiety) Qty: 30 0RF multivitamin Tablet 1 tab PO DAILY Discharge Orders: Discharge ED (Routine); Ordered 01/14/23 Ordered By: Peace Otero Referrals: Jonna Brenner DO [Primary Care Provider] - Activity Restrictions/Additional Instructions: As we discussed your ultrasound of your right leg did NOT show a DVT/blood clot. Please follow-up with primary care if leg pain persists. He may return to the emergency department for worsening or uncontrollable leg pain, swelling, redness/warmth, or any other concerns you may have. I hope you begin to feel better soon. Coding Level of Care Code ED Patient Insurance Clerk for Jamel [place]
[2023-01-14 08:29] VITALS: BP 117/65; PULSE 91; O2SAT 96
== END 2023-01-14 08:31 | disposition home or self-care (01) ==
PROVIDERS: Emergency Provider Physician Assistant; PCP Family Medicine
DX: M79.604 Pain in right leg (principal); Z87.891 Personal history of nicotine dependence
CPT/HCPCS: 93971; 99284

== ENCOUNTER 2023-01-22 20:52 | Emergency (ER) | payer BC, MEDICAID, SELFPAY ==
[2023-01-22 20:55] VITALS: BP 140/95; PULSE 74; RESP 16; TEMP 36.3; O2SAT 100
[2023-01-22 21:44] LABS: Basophils % 0.5 %; Eosinophils # 1.6 10^3/uL (0.0-0.8); Eosinophils % 21.5 %; Hematocrit 40.1 % (37.0-47.0); Hemoglobin 13.3 g/dL (11.5-15.3); Lymphocytes # 1.9 10^3/uL (0.8-4.8); Mean Corpuscular HGB Conc 33.2 g/dL (30.0-36.0); Mean Corpuscular Hemoglobin 29.3 pg (28.0-34.0); Mean Corpuscular Volume 88.3 fl (81-99); Mean Platelet Volume 11.6 fL (7.4-10.4); Monocytes # 0.4 10^3/uL (0.2-0.9); Monocytes % 5.2 %; Neutrophils # 3.42 10^3/uL (1.8-7.7); Neutrophils % 46.5 %; Nucleated Red Blood Cells % 0 %; Platelet Count 247 10^3/cmm (130-400); Red Blood Count 4.54 10^6/uL (4.1-5.3); Red Cell Distribution Width 14.6 % (12.1-15.1); White Blood Count 7.4 10^3/uL (4.0-10.0)
[2023-01-22 22:01] LABS: Lactate (Lactic Acid level) 1.4 mmol/L (0.5-2.2)
[2023-01-22 22:02] LABS: Alanine Aminotransferase 91 U/L (0-33); Alkaline Phosphatase 110 U/L (35-105); Aspartate Amino Transferase 55 U/L (0-32); Blood Urea Nitrogen 7 mg/dL (6-20); Calcium 9.5 mg/dL (8.5-10.5); Carbon Dioxide 29 mmol/L (22-29); Chloride 99 mmol/L (98-107); Globulin 3.5 g/dL (1.3-4.6); Glomerular Filtration Rate 93.2 mL/min (90-130); Glucose 102 mg/dL (65-115); Lipase 31 U/L (13-60); Osmolality Calculated 286 mOsm/kg (285-295); Sodium 139 mmol/L (136-145); Total Bilirubin 0.9 mg/dL (0.15-1.2); Total Protein 7.5 g/dL (6.6-8.7)
[2023-01-23] VITALS (9 sets, daily range): BP systolic 102–128; BP diastolic 47–86; PULSE 69–89; RESP 16; TEMP 36.2; O2SAT 96–100
[2023-01-23 00:42] LABS: HCG Qualitative Urine. Negative (Negative)
[2023-01-23 00:48] LABS: Bilirubin Urine 1+ (Negative); Blood Urine Neg (Negative); Glucose Urine UA Norm (Normal); Ketones Urine 1+ (Negative); Nitrate Urine Negative (Negative); Protein Urine Trace (Negative); Urine Appearance SL Hazy (CLEAR); Urine Color Amber (Yellow); pH Urine 5 (5-7)
[2023-01-23 00:49] LABS: Add Urine Microscopic? YES; Bacteria Urine 2+ /hpf; Leukocyte Esterase Urine 2+ (Negative); Mucus Urine 3+ /hpf; Squamous Epithelial Cell Urine 15-25 /hpf (0-5); Urobilinogen Urine 8 mg/dL (Negative); WBC Urine 15-25 /hpf (0-5)
[2023-01-23 00:50] LABS: Add Urine Culture? No
--- NOTE | 2023-01-23 00:56 | CTR_ITS ---
PROCEDURE INFORMATION: Exam: CT Abdomen And Pelvis With Contrast Exam date and time: 01/23/2023 2:07 AM Age: 37 years old Clinical indication: Abdominal pain; Other: S/P gastric sleeve December 31; Prior surgery; Surgery date: <1 month; Patient HX: Tubal; Additional info: Epigastric pain post gastric sleeve TECHNIQUE: Imaging protocol: Computed tomography of the abdomen and pelvis with contrast. Radiation optimization: All CT scans at this facility use at least one of these dose optimization techniques: automated exposure control; mA and/or kV adjustment per patient size (includes targeted exams where dose is matched to clinical indication); or iterative reconstruction. Contrast material: OMNI 350; Contrast volume: 100 ml; Contrast route: INTRAVENOUS (IV); REPORTING DATA: Count of CT and Cardiac NM exams in prior 12 months: This patient has received 2 known CTs and 0 known cardiac nuclear medicine studies in the 12 months prior to the current study. COMPARISON: CT abdomen pelvis wo con [id number] 02/17/2022 4:04 PM RADIATION DOSE METRICS: Total DLP (mGy-cm): 1112.02 FINDINGS: Diaphragm: Similar low-density nodularity along the left hemidiaphragm. Liver: Normal. No mass. Gallbladder and bile ducts: Cholecystectomy. Pancreas: Normal. No ductal dilation. Spleen: Normal. No splenomegaly. Adrenal glands: Normal. No mass. Kidneys and ureters: Normal. No hydronephrosis. Stomach and bowel: Postsurgical changes of sleeve gastrectomy. No bowel obstruction. Appendix: No evidence of appendicitis. Intraperitoneal space: Unremarkable. No free air. No significant fluid collection. Vasculature: Unremarkable. No abdominal aortic aneurysm. Lymph nodes: Unremarkable. No enlarged lymph nodes. Urinary bladder: Unremarkable as visualized. Reproductive: Unremarkable as visualized. Bones/joints: Unremarkable. No acute fracture. Soft tissues: Unremarkable. CT/CT abdomen pelvis w con* [id number] IMPRESSION: No acute findings.
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
[2023-01-23] MEDS: sodium chloride 0.9% 1,000 ML 999 ML IV (01:35)
[2023-01-23 02:04] LABS: Hepatitis A Antibody IgM Non-Reactive (Nonreactive); Hepatitis B Core IgM Non-Reactive (Nonreactive); Hepatitis B Surface Antigen Non-Reactive (Nonreactive); Hepatitis C Virus Antibody Non-Reactive (Nonreactive)
[2023-01-23] MEDS: iohexol 350 mg/mL 500 mL Btl (per mL) IV (02:13)
[2023-01-23] MEDS: morphine 4 mg/mL SDV 1 mL 2 MG IVP (02:37)
[2023-01-23] MEDS: ondansetron 2 mg/ML SDV 2 mL 4 MG IVP (02:37)
[2023-01-23] MEDS: HYDROmorphone 1 mg/mL INJ 1 mL 0.5 MG IVP (04:48)
== END 2023-01-23 05:59 | disposition home or self-care (01) ==
PROVIDERS: Nurse Practitioner Family; Emergency Provider Emergency Medicine; PCP Family Medicine
DX: R10.9 Unspecified abdominal pain (principal); Z98.84 Bariatric surgery status
CPT/HCPCS: 74177; 80053; 80074; 81001; 81025; 83605; 83690; 85025; 96374; 96375; 99285; J1170; J2270; J2405; J7030; Q9967

== ENCOUNTER 2023-02-27 20:44 | Emergency (ER) | payer BC, MEDICAID, SELFPAY ==
[2023-02-27 20:51] VITALS: BP 121/80; PULSE 97; RESP 18; TEMP 37.1; O2SAT 98; BMI 42.5
[2023-02-27 22:08] LABS: Urine Appearance Hazy (CLEAR); Urine Color Dark Yellow (Yellow)
[2023-02-27 22:09] LABS: Add Urine Microscopic? YES; Bilirubin Urine 1+ (Negative); Blood Urine 3+ (Negative); Glucose Urine UA Norm (Normal); Ketones Urine 1+ (Negative); Leukocyte Esterase Urine 2+ (Negative); Nitrate Urine Negative (Negative); Protein Urine 3+ (Negative); Urobilinogen Urine 4 mg/dL (Negative); pH Urine 5 (5-7)
[2023-02-27 22:10] LABS: RBC Urine >100 /hpf (0-2); Squamous Epithelial Cell Urine 15-25 /hpf (0-5); Transitional Epi Cells Urine 0-4 /hpf
[2023-02-27 22:11] LABS: Bacteria Urine 1+ /hpf; WBC Urine 40-55 /hpf (0-5)
--- NOTE | 2023-02-27 23:10 | XRR_ITS ---
PROCEDURE INFORMATION: Exam: XR Abdomen Exam date and time: 02/27/2023 11:19 PM Age: 37 years old Clinical indication: Abdominal pain; Flank; Other: Bilateral; Additional info: Flank pain TECHNIQUE: Imaging protocol: Radiologic exam of the abdomen. Views: Frontal supine view of the abdomen. 1 View. COMPARISON: CT abdomen pelvis w con* [id number] 01/23/2023 2:07 AM FINDINGS: Gastrointestinal tract: Normal. No bowel dilation. Bones/joints: Unremarkable. XR/XR KUB [id number] IMPRESSION: No acute findings.
[2023-02-27] MEDS: phenazopyridine 100 mg Tablet PO (23:41)
[2023-02-27] MEDS: sulfamethoxazole-trimeth DS 160-800 mg Tablet 1 TAB PO (23:41)
--- NOTE | 2023-02-28 00:31 | W.ED.FEMALGU ---
HPI - Female Genitourinary General: Chief complaint: Urogenital-Female Stated complaint: cant void Time Seen by Provider: 02/27/23 21:44 History of Present Illness: Patient is in for dysuria. She states that she was in [place] all day and when she got back from [place] she noticed she needed to go to the bathroom. She states that she felt a strong urgency to go right now. She states that when she went she noticed significant burning pain after peeing. She states that she has had UTIs in the past and once they thought maybe she had a kidney stone however she does not frequently get them. She does report [place]. She denies any fever, chills, nausea, vomiting. She denies any new sexual partners. She denies vaginal complaints or discharge. She did have recent gastric sleeve procedure done 2-1/2 months ago. She states she has been doing relatively well with that and is the best decision she has made in her life. Associated symptoms: Deny abdominal pain, headache(s), nausea or syncope Review of Systems Const: Denies: fever(s), chills or body aches Eyes: Denies: change in vision or blurry vision Card: Denies: chest pain, palpitations, irregular heart rhythm, lightheadedness or syncope Resp: Denies: dyspnea, productive cough or non-productive cough GI: Denies: abdominal pain, nausea or vomiting : Reports: flank pain, dysuria and urinary urgency Musc: Denies: neck pain or back pain Neuro: Denies: headache(s), numbness in extremities or weakness in extremities PFS ED PFSH: Medical History Allergic alveolitis and pneumonitis Anxiety and depression PTSD---diagnosed in 2010---managed by [facility]-she sees Dr. Lu every 2 months. History of seizure Diagnosed in 2017 and per patient they were found to be new distress. Has not had any symptoms or seizures since 2019. No pertinent past medical history Denies diabetes, hypertension, DVT/PE PCP: Dr. Brenner CRISELDA (obstructive sleep apnea) Diagnosed in 2020 and is getting fitted for CPAP in May 2021. Surgical History History of bilateral tubal ligation (06/04/16) LTF, right salpingectomy. Performed by Dr. Jama at [facility] [place] in [place], [place]. 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 Appendectomy performed by Dr. Cota. -----> pathology showed----> Infarcted leiomyoma with reactive changes. Adherent to distal end of fallopian tube; Benign appendix. History of cholecystectomy (~2011) Laparoscopic. S/P laparoscopic appendectomy (06/04/16) Performed at time of sterilization. Performed by Dr. Cota at [facility] [place] in [place], [place] Family History Family/Other Thyroid disease paternal aunt Grandmother Thyroid disease paternal Breast cancer maternal, diagnosed in her 40s Ovarian cancer paternal, diagosed in her 40s Diabetes maternal, paternal Hypertension maternal and paternal Heart disease maternal Grandfather Diabetes maternal, paternal Hypertension maternal and paternal Stroke paternal Heart disease paternal Father Hypertension Stroke Mother Hypertension Denies family history of Colon cancer Hyperlipidemia Uterine cancer Social History Smoking and tobacco status: former smoker Quit status (tobacco): has quit using tobacco Year quit tobacco: 2001 Second hand smoke exposure: No Alcohol intake: never Substance/Drug Use: never Physical Exam Const: COMMON NORMALS: no acute distress, patient oriented x3 and alert GENERAL APPEARANCE: cooperative ORIENTATION/CONSCIOUSNESS: Yes awake, Yes oriented to person, Yes oriented to place and Yes oriented to time OTHER: Patient is well-appearing in no acute distress Resp: COMMON NORMALS: normal respiratory effort, No retractions, No use of accessory muscles and clear to auscultation bilaterally EFFORT & INSPECTION: Yes symmetric chest movement AUSCULTATION: clear to auscultation bilaterally Cardio: COMMON NORMALS: regular rate, regular rhythm, S1 normal heart sound present and S2 normal heart sound present RATE: regular rate RHYTHM: regular rhythm HEART SOUNDS: S1 normal heart sound present and S2 normal heart sound present GI: COMMON NORMALS: Normal to inspection, nondistended, normoactive bowel sounds present, Soft to palpation, non-tender, No hepatosplenomegaly present, no masses and no bruits INSPECTION: Yes normal to inspection PALPATION: Yes Soft to palpation and Yes No hepatosplenomegaly present : OTHER: Mild CVA tenderness bilateral Neuro: COMMON NORMALS: patient oriented x3 SENSORIUM/ORIENTATION: Yes alert, Yes oriented to person, Yes oriented to place and Yes oriented to time Psych: COMMON NORMALS: cooperative Course Vital Signs: Vital signs: Vital Signs Temperature 98.7 F 02/27/23 20:51 Pulse Rate 97 02/27/23 20:51 Respiratory Rate 18 02/27/23 20:51 Blood Pressure 121/80 02/27/23 20:51 Pulse Oximetry 98 02/27/23 20:51 MDM - Female Medical Decision Making Consider urinary tract infection, cystitis, renal stone KUB x-ray does not show any acute findings We will treat patient to cover urinary tract infection with Bactrim and Pyridium. Advised patient of conservative measures at home. Make sure she is staying well-hydrated. Advised patient of possible benefits and risk of antibiotic medication prescribed today. Follow-up with primary care provider. Return to the ER for any new or worsening symptoms. Lab Data Radiology Impressions KUB X-Ray 02/27/23 23:10 IMPRESSION: No acute findings. Laboratory Results Urine Color Dark yellow (Yellow) 02/27/23 21: Urine Appearance Hazy (CLEAR) A 02/27/23: Urine pH 5 (5-7) 02/27/23 21: Ur Specific [place] 1.030 (1.005-1.030) 02/27/23 21: Urine Protein 3+ (Negative) H 02/27/23 21: Urine Glucose (UA) Norm (Normal) 02/27/23 21: Urine Ketones 1+ (Negative) H 02/27/23 21: Urine Blood 3+ (Negative) H 02/27/23 21: Urine Nitrate Negative (Negative) 02/27/23 21: Urine Bilirubin 1+ (Negative) H 02/27/23 21: Urine Urobilinogen 4 mg/dL (Negative) H 02/27/23 21: Ur Leukocyte Esterase 2+ (Negative) H 02/27/23 21: Urine RBC >100 /hpf (0-2) H 02/27/23 21: Urine WBC 40-55 /hpf (0-5) H 02/27/23 21: Ur Squamous Epith Cells 15-25 /hpf (0-5) H 02/27/23 21:29 Ur Transition Epith Cell 0-4 /hpf 02/27/23 21:29 Amorphous Sediment Not Reportable 02/27/23 21:29 Urine Bacteria 1+ /hpf (NONE) H 02/27/23 21:29 Discharge Plan Discharge Patient Disposition: Home Clinical Impression: Urinary tract infection Condition: Stable Prescriptions: New Bactrim DS 800-160 mg tablet 1 tab PO BID 3 Days Qty: 6 0RF Pyridium 100 mg tablet 100 mg PO Q8H PRN (Reason: pain) Qty: 6 0RF No Action azithromycin 250 mg tablet See Rx Instructions PO .COMPLEX Qty: 6 0RF Rx Instructions: take 500 mg today (day 1), then 250 mg for 4 days (days 2-5) PO methylprednisolone acetate [Depo-Medrol] 40 mg/mL suspension 40 mg Infiltration ONCE Qty: 1 0RF bupivacaine (PF) 0.25 % (2.5 mg/mL) solution 1 ml Infiltration ONCE Qty: 1 0RF (DME) AUTO-TITRATING CPAP See Rx Instructions .Route .MEDSUPPLY Qty: 1 0RF Rx Instructions: SETTING IS 8-12CM clobetasol 0.05 % cream See Rx Instructions .ROUTE .COMPLEX Qty: 30 0RF Dose Instruction: apply topically three times weekly NEEDED FOR rash and other SKIN eruption Rx Instructions: apply topically three times weekly NEEDED FOR rash and other SKIN eruption oxybutynin chloride 5 mg tablet extended release 24hr See Rx Instructions .ROUTE .COMPLEX Qty: 30 2RF Dose Instruction: TAKE 1 TABLET BY MOUTH EVERY DAY Rx Instructions: TAKE 1 TABLET BY MOUTH EVERY DAY duloxetine 60 mg capsule,delayed release(DR/EC) See Rx Instructions .ROUTE .COMPLEX Qty: 30 2RF Dose Instruction: take 1 capsule BY MOUTH AT BEDTIME Rx Instructions: take 1 capsule BY MOUTH AT BEDTIME clonazepam [Klonopin] 0.5 mg tablet 0.5 mg PO DAILY PRN (Reason: anxiety) Qty: 30 0RF pantoprazole 40 mg tablet,delayed release (DR/EC) See Rx Instructions .ROUTE .COMPLEX Qty: 30 0RF Dose Instruction: TAKE ONE TABLET BY MOUTH EVERY DAY Rx Instructions: TAKE ONE TABLET BY MOUTH EVERY DAY multivitamin Tablet 1 tab PO DAILY Discharge Orders: Discharge ED (Routine); Ordered 02/28/23 Ordered By: Kristina Soria Referrals: Jonna Brenner DO [Primary Care Provider] - Discharge Diet: Usual diet Discharge Activity: Resume usual activity Patient Instructions: Urinary Tract Infection - Women Activity Restrictions/Additional Instructions: Take antibiotics as directed starting tomorrow. Make sure that you are staying well-hydrated and avoiding sugary drinks. Follow-up with primary care provider as needed. Return to the ER for new or worsening symptoms Coding Level of Care Code ED Mult Au Matic Operator for Jamel [place]
[2023-02-28 00:54] VITALS: PULSE 96; RESP 16; O2SAT 96
== END 2023-02-28 00:53 | disposition home or self-care (01) ==
PROVIDERS: Emergency Medicine; Emergency Provider Nurse Practitioner Family; PCP Family Medicine
DX: N39.0 Urinary tract infection, site not specified (principal); Z87.891 Personal history of nicotine dependence
CPT/HCPCS: 74018; 81001; 99284

== ENCOUNTER → 2023-03-10 10:16 | Outpatient (BNVA) | payer BC, MEDICAID, SELFPAY | PROVIDERS: PCP Family Medicine; Visit Provider Nurse Practitioner Family | DX: R39.9 Unspecified symptoms and signs involving the genitourinary system (principal) | CPT/HCPCS: 81000; 87086 ==

== ENCOUNTER 2023-05-22 10:23 | Outpatient (CLI) | payer BC, MEDICAID, SELFPAY ==
[2023-05-22 11:22] LABS: Basophils % 0.7 %; Eosinophils # 0.2 10^3/uL (0.0-0.8); Eosinophils % 3.4 %; Hematocrit 42.1 % (37.0-47.0); Hemoglobin 14.2 g/dL (11.5-15.3); Lymphocytes # 1.6 10^3/uL (0.8-4.8); Mean Corpuscular HGB Conc 33.7 g/dL (30.0-36.0); Mean Corpuscular Hemoglobin 30.4 pg (28.0-34.0); Mean Corpuscular Volume 90.1 fl (81-99); Mean Platelet Volume 12.2 fL (7.4-10.4); Monocytes # 0.3 10^3/uL (0.2-0.9); Monocytes % 4.8 %; Neutrophils # 3.49 10^3/uL (1.8-7.7); Neutrophils % 62.7 %; Nucleated Red Blood Cells % 0 %; Platelet Count 230 10^3/cmm (130-400); Red Blood Count 4.67 10^6/uL (4.1-5.3); Red Cell Distribution Width 13.7 % (12.1-15.1); White Blood Count 5.6 10^3/uL (4.0-10.0)
[2023-05-22 11:42] LABS: Estmated Average Glucose 91; Hemoglobin A1C 4.8 % (4.0-6.0)
[2023-05-22 11:48] LABS: Calcium 9.9 mg/dL (8.5-10.5)
[2023-05-22 11:49] LABS: Alanine Aminotransferase 26 U/L (0-33); Albumin Level 3.9 g/dL (3.5-5.2); Alkaline Phosphatase 61 U/L (35-105); Anion Gap 11.8 (5-19); Aspartate Amino Transferase 24 U/L (0-32); Blood Urea Nitrogen 8 mg/dL (6-20); Calcium 9.7 mg/dL (8.5-10.5); Carbon Dioxide 29 mmol/L (22-29); Chloride 101 mmol/L (98-107); Chol HDL Ratio 3.14 mg/dL (0.0-4.40); Cholesterol 157 mg/dL (0-200); Ferritin 67 ng/mL (15-150); Globulin 3.2 g/dL (1.3-4.6); Glomerular Filtration Rate 93.2 mL/min (90-130); Glucose 108 mg/dL (65-115); HDL Cholesterol 50 mg/dL (60-100); Iron 81 ug/dL (37-145); LDL Cholesterol Calculated 69 mg/dL (50-129); LDL HDL Ratio 1.38 RATIO (0.00-3.22); Magnesium 1.7 mg/dL (1.7-2.3); Osmolality Calculated 285 mOsm/kg (285-295); Percent Saturation 29.1 % (20-50); Phosphorus 2.2 mg/dL (2.5-4.5); Potassium 3.8 mmol/L (3.5-5.1); Sodium 138 mmol/L (136-145); Total Bilirubin 0.7 mg/dL (0.15-1.2); Total Iron Binding Capacity 278 mcg/dl; Total Protein 7.1 g/dL (6.6-8.7); Triglycerides 188 mg/dL (0-150); Unsaturated Iron Binding 197 ug/dL (112-347)
[2023-05-22 11:53] LABS: Parathyroid Hormone 41.6 pg/mL (15-65)
[2023-05-22 12:03] LABS: Folate Level 9.3 ng/mL (4.8-37.3)
[2023-05-22 12:04] LABS: 25 Hydroxy Vitamin D 51 ng/mL (30-100); Vitamin B12 813 pg/mL (232-1245)
[2023-05-27 18:49] LABS: Copper Level 136 mcg/dL (70-175)
[2023-05-28 14:05] LABS: Vitamin K 165 pg/mL (130-1500)
[2023-05-29 12:16] LABS: Alpha-Tocopherol 14.4 mg/L; Beta-Gamma-Tocopherol 1.2 mg/L (<4.4); Vitamin A (Retinol) 90 mcg/dL (38-98)
== END 2023-05-22 10:24 | disposition home or self-care (01) ==
PROVIDERS: PCP Family Medicine; Visit Provider Nurse Practitioner Family
DX: K91.2 Postsurgical malabsorption, not elsewhere classified (principal); Z98.84 Bariatric surgery status
CPT/HCPCS: 36415; 80053; 80061; 82306; 82310; 82525; 82607; 82728; 82746; 83036; 83540; 83550; 83735; 83970; 84100; 84446; 84590; 84597; 85025

== ENCOUNTER 2023-06-15 21:40 | Emergency (ER) | payer BC, MEDICAID, SELFPAY ==
[2023-06-15 21:43] VITALS: BP 132/89; PULSE 80; RESP 18; TEMP 36.6; O2SAT 98; BMI 48.8
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
[2023-06-15] MEDS: iohexol 350 mg/mL 500 mL Btl (per mL) IV (22:20)
[2023-06-15] MEDS: tetanus-dipt-pertussis 0.5 mL SDV IM (22:24)
[2023-06-15] MEDS: fentaNYL 50 mcg/mL INJ 2mL 100 MCG IVP (22:25)
[2023-06-15 22:36] LABS: Basophils % 0.2 %; Eosinophils # 0.1 10^3/uL (0.0-0.8); Eosinophils % 0.4 %; Hematocrit 39.7 % (36-47); Lymphocytes # 2.2 10^3/uL (0.8-4.8); Lymphocytes % 18.1 %; Mean Corpuscular HGB Conc 32.5 g/dL (30-55); Mean Corpuscular Hemoglobin 29.9 pg (27-33); Mean Corpuscular Volume 91.9 fl (85-98); Mean Platelet Volume 11.9 fL (7.4-10.4); Monocytes # 0.4 10^3/uL (0.2-0.9); Monocytes % 3.1 %; Neutrophils % 77.7 %; Nucleated Red Blood Cells % 0 %; Platelet Count 250 10^3/cmm (157-399); Red Blood Count 4.32 10^6/uL (3.85-5.65); Red Cell Distribution Width 13.5 % (12.1-15.1); White Blood Count 12.35 10^3/uL (3.29-11.43)
[2023-06-15 23:04] LABS: Alanine Aminotransferase 92 U/L (0-33); Albumin Level 4.2 g/dL (3.5-5.2); Alkaline Phosphatase 63 U/L (35-105); Anion Gap 11.5 (5-19); Aspartate Amino Transferase 125 U/L (0-32); Blood Urea Nitrogen 11 mg/dL (6-20); Calcium 9.1 mg/dL (8.5-10.5); Carbon Dioxide 29 mmol/L (22-29); Chloride 100 mmol/L (98-107); Globulin 2.7 g/dL (1.3-4.6); Glomerular Filtration Rate 93.2 mL/min (90-130); Glucose 132 mg/dL (65-115); Osmolality Calculated 285 mOsm/kg (285-295); Potassium 3.5 mmol/L (3.5-5.1); Sodium 137 mmol/L (136-145); Total Bilirubin 0.7 mg/dL (0.15-1.2); Total Protein 6.9 g/dL (6.6-8.7)
[2023-06-15 23:06] LABS: HCG, Serum Qual Negative (Negative)
[2023-06-15 23:16] VITALS: BP 126/86; PULSE 94; RESP 16; O2SAT 98
[2023-06-15 23:29] LABS: Add Urine Microscopic? YES; Bacteria Urine TRACE /hpf; Bilirubin Urine Neg (Negative); Blood Urine 2+ (Negative); Glucose Urine UA Norm (Normal); Ketones Urine 1+ (Negative); Leukocyte Esterase Urine Negative (Negative); Mucus Urine 1+ /hpf; Nitrate Urine Negative (Negative); Protein Urine 1+ (Negative); Specific Gravity, Urine 1.005 (1.005-1.030); Squamous Epithelial Cell Urine 0-4 /hpf (0-5); Urine Appearance Clear (CLEAR); Urine Color Yellow (Yellow); Urobilinogen Urine 1 mg/dL (Negative); pH Urine 6.5 (5-7)
[2023-06-15 23:30] LABS: Add Urine Culture? No
[2023-06-15 23:47] VITALS: BP 126/86; PULSE 94; RESP 16; TEMP 36.6; O2SAT 98
[2023-06-15] MEDS: HYDROmorphone 1 mg/mL INJ 1 mL IVP (23:47)
== END 2023-06-15 23:48 | disposition short-term general hospital (02) ==
PROVIDERS: Emergency Provider Nurse Practitioner Family; PCP Family Medicine
DX: S27.0XXA Traumatic pneumothorax, initial encounter (principal); S42.101A Fracture of unspecified part of scapula, right shoulder, initial encounter for closed fracture; S06.6XAA Traumatic subarachnoid hemorrhage with loss of consciousness status unknown, initial encounter; Z87.891 Personal history of nicotine dependence; V86.69XA Passenger of other special all-terrain or other off-road motor vehicle injured in nontraffic accident, initial encounter; Z23 Encounter for immunization
CPT/HCPCS: 36415; 51702; 70450; 71260; 72125; 74177; 80053; 81001; 84703; 85025; 90471; 90715; 96374; 96375; 99285; J1170; J3010; Q9967

== ENCOUNTER → 2023-06-25 09:08 | Outpatient (BNVA) | payer BC, MEDICAID, SELFPAY | PROVIDERS: PCP Family Medicine; Referring Provider Nurse Practitioner Family; Visit Provider Specialist | DX: S42.101A Fracture of unspecified part of scapula, right shoulder, initial encounter for closed fracture; V86.99XA Unspecified occupant of other special all-terrain or other off-road motor vehicle injured in nontraffic accident, initial encounter | CPT/HCPCS: 73030 ==

== ENCOUNTER 2023-06-25 13:35 | Outpatient (CLI) | payer BC, MEDICAID, SELFPAY | END 2023-06-25 13:36 | disposition home or self-care (01) | LOC: SPT 13:36 | PROVIDERS: PCP Family Medicine; Visit Provider Specialist | DX: Z46.89 Encounter for fitting and adjustment of other specified devices (principal); S42.191D Fracture of other part of scapula, right shoulder, subsequent encounter for fracture with routine healing; X58.XXXD Exposure to other specified factors, subsequent encounter | CPT/HCPCS: 97760; L3670 ==

== ENCOUNTER → 2023-06-30 11:17 | Outpatient (BNVA) | payer BC, MEDICAID, SELFPAY | PROVIDERS: PCP Family Medicine; Visit Provider Anesthesiology Pain Medicine | DX: M54.50 Low back pain, unspecified (principal); G89.29 Other chronic pain; M54.16 Radiculopathy, lumbar region | CPT/HCPCS: 72110 ==

== ENCOUNTER 2023-06-30 15:38 | Emergency (ER) | payer BC, MEDICAID, SELFPAY ==
[2023-06-30 15:45] VITALS: BP 116/86; PULSE 83; RESP 16; TEMP 36.6; O2SAT 98; BMI 36.1
--- NOTE | 2023-06-30 16:09 | CTR_ITS ---
PROCEDURE INFORMATION: Exam: CT Head Without Contrast Exam date and time: 06/30/2023 4:20 PM Age: 37 years old Clinical indication: Altered mental status/memory loss; Additional info: Groggy, forgetfullness, slurred speech, recent trauma 06/15-intracranial hemorrhage TECHNIQUE: Imaging protocol: Computed tomography of the head without contrast. Axial, coronal and sagittal reformatted images were created and reviewed. Radiation optimization: All CT scans at this facility use at least one of these dose optimization techniques: automated exposure control; mA and/or kV adjustment per patient size (includes targeted exams where dose is matched to clinical indication); or iterative reconstruction. REPORTING DATA: Count of CT and Cardiac NM exams in prior 12 months: This patient has received 4 known CTs and 0 known cardiac nuclear medicine studies in the 12 months prior to the current study. COMPARISON: CT head wo con* [id number] 06/15/2023 10:02 PM RADIATION DOSE METRICS: Total DLP (mGy-cm): 1055 FINDINGS: Brain: No CT evidence of acute intracranial hemorrhage or acute territorial infarction. No significant mass effect or midline shift. Basal cisterns patent. Cerebral ventricles: Normal in size and configuration. Paranasal sinuses: Unremarkable. No fluid levels. Mastoid air cells: Grossly unremarkable. Bones/joints: No acute osseous abnormality. Soft tissues: Grossly unremarkable. CT/CT head wo con* [id number] IMPRESSION: No CT evidence of acute intracranial pathology.
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
== END 2023-06-30 17:17 | disposition home or self-care (01) ==
PROVIDERS: Emergency Provider Physician Assistant; PCP Family Medicine
DX: F07.81 Postconcussional syndrome (principal); Z87.891 Personal history of nicotine dependence
CPT/HCPCS: 70450; 99284

== ENCOUNTER 2023-07-21 06:13 | Outpatient (CLI) | payer BC, MEDICAID, SELFPAY ==
--- NOTE | 2023-07-21 06:23 | CT_ITS ---
WS: [id number] NONCONTRAST CT RIGHT SHOULDER TECHNIQUE: Noncontrast CT RIGHT shoulder with coronal and sagittal reformatted images. CLINICAL INFORMATION: M54.2 - Cervicalgia COMPARISON: Radiograph 06/25/2023 DLP: 415.[address] scans at [facility] use at least one of these dose optimization techniques: automated e xposure control; mA and/or kV adjustment per patient size (includes targeted exams where dose is matc hed to clinical indication); or iterative reconstruction. FINDINGS: Healing RIGHT posterior third and fourth rib fractures with callus formation. Anterior first rib nond isplaced fracture at the costal vertebral junction. Nondisplaced fracture RIGHT T2 transverse process . No pneumothorax in the partially visualized RIGHT lung. Nondisplaced fracture of the acromial spine with callus formation. Acromial spine fracture extends to the scapula body junction. Additional comminuted fracture of the coracoid with associated callus for mation extends to the body of the scapula. Superior projecting fracture fragment best seen on the cor onal imaging. Humeral head appears normal. Normal glenoid. Body of the scapula appears intact. Tiny avulsion fractu re at the distal clavicle anteriorly. IMPRESSION: 1. Nondisplaced fracture of the acromial spine with callus formation. 2. Additional comminuted fracture of the coracoid with associated callus formation. 3. Body of the scapula appears intact. 4. Healing RIGHT posterior third and fourth rib fractures with callus formation. 5. Anterior first rib nondisplaced fracture at the costal vertebral junction. 6. Nondisplaced fracture RIGHT T2 transverse process. 7. Tiny avulsion fracture at the distal clavicle anteriorly.
== END 2023-07-21 06:14 | disposition home or self-care (01) ==
LOC: RAD 06:14
PROVIDERS: PCP Family Medicine; Visit Provider Specialist
DX: M54.2 Cervicalgia; S42.124A Nondisplaced fracture of acromial process, right shoulder, initial encounter for closed fracture; S42.131A Displaced fracture of coracoid process, right shoulder, initial encounter for closed fracture; S22.021A Stable burst fracture of second thoracic vertebra, initial encounter for closed fracture; S42.031A Displaced fracture of lateral end of right clavicle, initial encounter for closed fracture; X58.XXXA Exposure to other specified factors, initial encounter; S22.41XD Multiple fractures of ribs, right side, subsequent encounter for fracture with routine healing; X58.XXXD Exposure to other specified factors, subsequent encounter; G89.29 Other chronic pain
CPT/HCPCS: 73200

== ENCOUNTER → 2023-10-13 12:19 | Outpatient (BNVA) | payer BC, MEDICAID, SELFPAY | PROVIDERS: PCP Family Medicine; Visit Provider Nurse Practitioner Family | DX: R39.9 Unspecified symptoms and signs involving the genitourinary system (principal); R30.0 Dysuria; N76.0 Acute vaginitis; B96.89 Other specified bacterial agents as the cause of diseases classified elsewhere; Z20.2 Contact with and (suspected) exposure to infections with a predominantly sexual mode of transmission | CPT/HCPCS: 81000; 87491; 87591 ==

== ENCOUNTER → 2024-07-01 13:35 | Outpatient (BNVA) | payer BC, MEDICAID, SELFPAY | PROVIDERS: PCP Family Medicine Adult Medicine; Visit Provider Registered Nurse Neonatal Intensive Care | DX: R39.9 Unspecified symptoms and signs involving the genitourinary system (principal) | CPT/HCPCS: 81000 ==

== ENCOUNTER → 2025-04-29 12:05 | Outpatient (BNVA) | payer BC, SELFPAY | PROVIDERS: PCP Family Medicine Adult Medicine | DX: N39.0 Urinary tract infection, site not specified (principal) | CPT/HCPCS: 81000 ==

== ENCOUNTER → 2025-09-13 17:33 | Outpatient (BNVA) | payer BC, SELFPAY | PROVIDERS: PCP Family Medicine Adult Medicine; Visit Provider Emergency Medicine | DX: R39.89 Other symptoms and signs involving the genitourinary system (principal) | CPT/HCPCS: 81000; 87086 ==

== ENCOUNTER 2025-10-02 16:08 | Emergency (ER) | payer BC, MEDICAID, SELFPAY ==
[2025-10-02 16:08] VITALS: BP 138/81; PULSE 106; TEMP 36.5; O2SAT 98; BMI 25.4
--- OUTSIDE RECORDS SUMMARY | 2025-10-02 16:14 | XMS_ITS | Encounter Summary ---
Author Organization [facility] Address [address] [place] [address] Care Team Providers Care Tapper Hand Name Role Phone Non-Staff, Physician Primary Care Provider Unava ilable Encounter Details Date Type Department Care Team (Late st Contact Info) Description 09/26/2025 External Device Data [facility] ABSTRACTION Provider, Abstract NO ADDRESS ON FILE Social History Tobacco Use Types Packs/Day Years Used Date Smoking Tobacco: Some Days Cigarettes 0 Last attempted to quit: 2001 Passive Smoke Exposure: Current Smokeless Tobacco: Never Alcohol Use Standard Drinks/Week Comments No 0 (1 standard drink = 0.6 oz pur e alcohol) Feeling Safe Answer Date Recorded Are you in a relationship wi th someone who hurts you emotionally and/or physically? 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
--- OUTSIDE RECORDS SUMMARY | 2025-10-02 16:14 | XMS_ITS | Encounter Summary ---
Author Organization [facility] Address 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 Pt verbalized understanding ER PRINTER documented in this encounter Plan of Treatment Not on file documented as of this encounter Visit Diagnoses Not on filedocumented in this encounter Care Teams Etl Data Architect Relationship Specialty Start Date End Date Non-Staff, Physician NO ADDRESS ON FILE PCP - General 05/24/11 documented as of this encounter
--- OUTSIDE RECORDS SUMMARY | 2025-10-02 16:14 | XMS_ITS | Clinical Summary ---
Author Organization [facility] Address [address] [place] [address] Phone Care Team Providers Care Heat Treat Puller Name Role Phone Non-Staff, Physician Primary Care Provider Unava ilable Allergies No known active allergies Medications ALPRAZolam (XANAX) 0.25 mg Oral tablet Take 0.25 mg by mouth nightly as needed. Active Active Problems Problem Noted Date Diagnosed Date Cholelithiasis 05/25/2011 Gall stone pancreatitis 05/25/2011 Probable choledocholithiasis 05/25/2011 Cholecystitis 05/25/2011 LFT's abnormal 05/25/2011 Social History Tobacco Use Types Packs/Day Years Used Date Smoking Tobacco: Never Smokeless Tobacco: Never Alcohol Use Standard Drinks/Week Comments No 0 (1 standard drink = 0.6 oz pur e alcohol) Comments No Sex and Gender Information Value Date Recorded Sex Assigned at Not on file Legal Sex Female 12:59 PM PORTER MARINA Gender Identity Not on file Sexual Orientation Not on file Last Filed Vital Signs Vital Sign Reading Time Taken Comments Blood Pressure 106/76 06/11/2011 1:45 PM CDT Pulse 78 06/11/2011 1:45 PM CDT Temperature 36.7 C (98 F) 05/27/2011 7:14 AM CDT Respiratory Rate 16 06/11/2011 1:45 PM CDT Oxygen Saturation 96% 05/27/2011 7:14 AM CDT Inhaled Oxygen Concentration - - Weight 78 kg (172 lb) 06/11/2011 1:45 PM CDT Height 154.9 cm (5' 1 ) 06/11/2011 1:45 PM CDT Body Mass Index 32.5 06/11/2011 1:45 PM CDT Plan of Treatment Health Maintenance Due Date Last Done Comments DTAP/TDAP/TD VACCINES (1 - Tdap) 2002 HEPATITIS B VACCINES (1 of 3 - 19+ 3-dose series) 11/06 HPV/Cotest (21-29) 2004 CERVICAL CANCER SCREENING 2013 HPV/Cotest (30-65) 2013 PAP SMEAR 2013 BREAST CANCER SCREENING 2023 INFLUENZA VACCINE (#1) 2025 HPV VACCINES (No Doses Required) Completed Advance Directives For more information, please contact: [phone] * Full Code (Latest Code Status on File) Date Activated Date Inactivated Comments 05/26/2011 11:07 AM 05/27/2011 2:09 PM * Full Code Date Activated Date Inactivated Comments 05/24/2011 8:11 PM 05/26/2011 11:07 AM Care Teams Heat Treat Puller Relationship Specialty Start Date End Date Non-Staff, Physician NO ADDRESS ON FILE PCP - General 05/24/11
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
[2025-10-02] MEDS: orphenadrine 30 mg/mL Inj 2 mL 60 MG IM (18:23)
== END 2025-10-02 18:43 | disposition home or self-care (01) ==
PROVIDERS: Emergency Provider Physician Assistant; PCP Family Medicine Adult Medicine
DX: K86.89 Other specified diseases of pancreas (principal); Y04.2XXA Assault by strike against or bumped into by another person, initial encounter; Z87.891 Personal history of nicotine dependence
CPT/HCPCS: 70450; 71045; 72125; 72128; 72131; 73030; 96372; 99284; J1885; J2360